=== PATIENT | male | born 1935 | race Caucasian/White ===

== ENCOUNTER 2020-02-06 12:40 | Inpatient (IN) | payer MEDICARE, MEDICAID, SELFPAY ==
[2020-02-06] VITALS (16 sets, daily range): BP systolic 143–172; BP diastolic 86–95; PULSE 61–105; RESP 18–31; TEMP 36.4–39; O2SAT 91–100; BMI 29.6
--- NOTE | ~2020-02-06 | XR_ITS ---
EXAMINATION: XR chest 1V portable EXAM DATE: 02/08/2020 12:29 INDICATION: Dyspnea, cough. TECHNIQUE: Portable AP frontal chest x-ray was obtained. Comparison is made to prior examination from 02/06/2020. FINDINGS: Left hemidiaphragm is more elevated than on prior study, and there is likely some adjacent atelectasis. The lungs are otherwise clear. There are no pleural effusions. Cardiac silhouette is p rominent but magnified on this AP technique. There is no pneumothorax suspected. The bones and sof t tissues are unremarkable. There is aortic arterial sclerosis. Spine stimulator leads. IMPRESSION: Low left lung volume with some adjacent left basilar atelectasis. No confluent consolidat ion. Reviewed, dictated and finalized at location B. IMPRESSION: Low left lung volume with some adjacent left basilar atelectasis. N o confluent consolidation.
--- NOTE | ~2020-02-06 | CT_ITS ---
EXAMINATION: CT brain wo con DATE: 02/06/2020 14:31 INDICATION: Altered mental status. TECHNIQUE: Computed tomography (CT) of the head was performed without intravenous contrast. The mA wa s adjusted according to patient size. Iterative reconstruction technique was employed. The dose-lengt h product was 681.00 mGy-cm. COMPARISON: Head CT 04/05/2018 FINDINGS: There is an old infarct in left temporal occipital region in the expected distribution of l eft posterior cerebral artery. There is an old infarct involving the right basal ganglia and right in ternal capsule. There is an old infarct in the right frontoparietal region. There is an old infarct i n posterior left frontal lobe. There is an old infarct in anterior right frontal lobe. There is no in tracranial hemorrhage, acute infarction, or abnormal intracranial mass lesion. There is ex vacuo dila tation of occipital horn of left lateral ventricle and body of right lateral ventricle. There is exte nsive dental disease. There is mild mucosal thickening in the paranasal sinuses. There are surgical c hanges of right frontal sinus. The orbits are normal. The mastoid air cells are normal. Partially vis ualized is left face soft tissue swelling. IMPRESSION: 1. Multiple old infarcts in the brain. 2. Extensive dental disease. Reviewed, dictated and finalized at location A.
--- NOTE | ~2020-02-06 | US_ITS ---
EXAMINATION: US venous doppler UE DATE: 02/13/2020 08:08 INDICATION: Right upper limb swelling. TECHNIQUE: Grayscale ultrasound images without and with compression and Doppler ultrasound images of the bilateral upper extremity veins were obtained. COMPARISON: None. FINDINGS: The visualized portions of the right internal jugular vein, subclavian vein, axillary vein, brachial veins, basilic vein, cephalic vein, radial vein, and ulnar vein are patent. The visualized portions of the left internal jugular vein, subclavian vein, axillary vein, brachial v eins, basilic vein, cephalic vein, radial vein, and ulnar vein are patent. A right-sided PICC line is noted. IMPRESSION: 1. No deep venous thrombosis. Reviewed, dictated and finalized at location A.
--- NOTE | ~2020-02-06 | CT_ITS ---
EXAMINATION: CT facial bones w con DATE: 02/06/2020 14:32 INDICATION: Left face soft tissue swelling. TECHNIQUE: Computed tomography (CT) of the facial bones and maxillofacial region was performed with 7 5 mL Omnipaque 350 intravenous contrast. Automated exposure control and iterative reconstruction tech [employer] were employed. The dose-length product was 546.97 mGy-cm. COMPARISON: None. FINDINGS: There is mild mucosal thickening in the paranasal sinuses. There are surgical changes of ri ght frontal sinus. The orbits are normal. There is plaque in the proximal internal carotid arteries w ith less than 50% stenosis relative to normal distal artery lumen diameters. Tooth 10 is broken. Ther e is a carious lesion of tooth 11. Teeth 12 and 13 are broken with periapical lucencies. Tooth 16 dem onstrates a carious lesion and periapical lucencies. Tooth 17 demonstrates a carious lesion. Tooth 20 is broken. Teeth 21, 22, and 23 demonstrate carious lesions. Tooth 30 demonstrates a carious lesion and periapical lucencies. There is extensive soft tissue swelling in left face involving the parotid gland, submandibular gland , surrounding fat, subcutaneous fat, and left sternocleidomastoid muscle. There is asymmetric enlarge ment of left palatine tonsil. There is no sialolith. There are hyperenhancing normal-sized lymph node s in the left mandibular and internal jugular chains, likely reactive. IMPRESSION: 1. Left face soft tissue swelling, consistent with cellulitis. No abscess. Possible sources of inflam mation are dental disease and parotiditis. 2. Extensive dental disease. Reviewed, dictated and finalized at location A. IMPRESSION: 1. Left face soft tissue swelling, consistent with cellulitis. No abscess. Poss ible sources of inflammation are dental disease and parotiditis. 2. Extensive dental disease.
--- NOTE | ~2020-02-06 | XR_ITS ---
EXAMINATION: XR barium swallow modified DATE: 02/10/2020 10:30 INDICATION: Dysphagia. TECHNIQUE: The patient was given barium-containing material of multiple consistencies to swallow by t tamiko speech pathologist while I performed fluoroscopy. Fluoroscopy exposure time was 3.1 minutes. The n umber of fluoroscopy images saved to the PACS was 1. Dose-area product was 9.888 Gy-cm^2. FINDINGS: There was vallecular residue, laryngeal penetration, and aspiration. IMPRESSION: 1. Laryngeal penetration and aspiration. 2. Please refer to the speech therapy report for recommendations. Reviewed, dictated and finalized at location A.
--- NOTE | ~2020-02-06 | XR_ITS ---
EXAMINATION: XR chest 1V portable EXAM DATE: 02/06/2020 13:30 INDICATION: Altered mental status. TECHNIQUE: Portable AP frontal chest x-ray was obtained. Comparison is made to prior examination from 08/24/2018. FINDINGS: The lungs are clear. There are no pleural effusions. Cardiac silhouette is prominent but magnified on this AP technique. There is no pneumothorax suspected. The bones and soft tissues are unremarkable. There is aortic arterial sclerosis. Spine stimulator leads. IMPRESSION: No acute cardiopulmonary findings. Reviewed, dictated and finalized at location B.
--- NOTE | ~2020-02-06 | XR_ITS ---
EXAMINATION: XR chest 1V INDICATION: Tachypnea TECHNIQUE: Portable AP chest at 1021 hours COMPARISON: 02/08/2020 FINDINGS: A right upper extremity PICC has been inserted which ends with its tip at the superior cavo atrial junction. There is minimal airspace opacity of the left lung base which is not significantly c hanged. No pleural effusion or pneumothorax is identified. The cardiomediastinal silhouette is normal . A small amount of enteric contrast is seen in the pharynx and proximal small bowel related to modif ied barium swallow. There is vertebroplasty change of the lumbar spine. Neurostimulator leads project over the midthoracic spine. IMPRESSION: 1. Stable left basilar airspace opacity, consistent with atelectasis versus pneumonia. Reviewed, dictated and finalized at location B. IMPRESSION: 1. Stable left basilar airspace opacity, consistent with atelectasis versus pne umonia.
--- NOTE | ~2020-02-06 | XR_ITS ---
EXAMINATION: XR barium swallow modified DATE: 02/13/2020 14:03 INDICATION: Dysphagia. TECHNIQUE: The patient was given barium-containing material of multiple consistencies to swallow by t tamiko speech pathologist while I performed fluoroscopy. Fluoroscopy exposure time was 2.6 minutes. The n umber of fluoroscopy images saved to the PACS was 1. Dose-area product was 5.098 Gy-cm^2. FINDINGS: Laryngeal penetration was noted. Microaspiration cannot be excluded. IMPRESSION: 1. Laryngeal penetration. Microaspiration cannot be excluded. 2. Please refer to the speech therapy report for recommendations. Reviewed, dictated and finalized at location A.
--- NOTE | ~2020-02-06 | XR_ITS ---
XR chest 1V portable 02/12/2020 18:20 Indication: Line placement. Procedure: AP portable chest Comparison: Comparison to multiple prior studies sequentially, with oldest reviewed study dated 08/03. Findings: Right subclavian PICC line tip in the SVC. Shallow inspiration. Left basilar airspace disea se, compatible with pneumonia. No pleural effusion, edema or pneumothorax. No acute osseous abnormali ty. Impression: 1: Left basilar airspace disease, compatible with pneumonia. Reviewed, dictated and finalized at location A. Impression: 1: Left basilar airspace disease, compatible with pneumonia.
--- NOTE | 2020-02-06 12:53 | ED.GENADULT ---
HPI - General Adult General Chief complaint: Unspecified Stated complaint: infection to mouth Time Seen by Provider: 02/06/20 12:52 Source: EMS and RN notes reviewed Mode of arrival: EMS Limitations: clinical condition History of Present Illness HPI narrative: Pt is a 84 y/o male who presents to the ED via EMS with c/o lt sided facial swelling starting this morning. According to the nurse, staff at [facility] noticed the lt side of his face was swollen earlier this morning. She notes that they then took his temperature, and stated that it was 101.7 degrees. Pt is currently not answering questions. EMS states that the pt is normally A & Ox4. HPI limited due to pt's clinical condition. MD complaint: Facial Swelling Location: face (lt side of face) Associated symptoms: fever/chills (fever (per [facility] staff)) Related Data Allergies Allergy/AdvReac Type Severity Reaction Status Date / Time lisinopril Allergy Severe Swelling Verified 08/24/18 20:17 ceftriaxone Allergy Unknown Verified 08/24/18 20:17 Review of Systems Review of Systems: Narrative: ROS limited due to the pt's clinical condition. Constitutional: Constitutional: Reports fever(s) (per [facility] staff) Integumentary/Breasts: Skin/Breast: Reports skin swelling (lt sided facial swelling) [facility] Past Medical History Medical History Anemia Anxiety Arthritis Back pain BPH (benign prostatic hyperplasia) CHF (congestive heart failure) COPD (chronic obstructive pulmonary disease) CVA (cerebral vascular accident) Dementia Depression Diabetes Diabetic neuropathy DVT (deep venous thrombosis) HLD (hyperlipidemia) HTN (hypertension) MRSA (methicillin resistant Staphylococcus aureus) Myocardial infarction NAIN (obstructive sleep apnea) Pneumonia Renal disease Surgical History Surgical History History of total bilateral knee replacement Hx of cardiac catheterization Hx of heart artery stent x2 Hx of sinus surgery Hx of spinal surgery Social History Social History Smoking status: Former smoker Exam Const: General: ill appearing acutely and lethargic Orientation/consciousness: lethargic Limitations: altered mental status HENMT: Face and sinus: other (left facial swelling along parotid gland) Mouth: Yes dry mucous membranes Teeth and gingiva: abnormal tooth and associated gingiva and poor dentition Throat: other (dried green material to palate) Chest: Chest palpation & inspection: normal inspection of the chest Resp: Effort & Inspection: tachypneic Auscultation: rhonchi throughout and no wheezes Cardio: Rate: regular rate Rhythm: regular rhythm Heart sounds: no murmurs Course Reevaluation(s) Reevaluation #1: I spoke with patient's daughter in depth about seriousness of patient's condition. I spoke with her for about 15 minutes. She states patient is DNR and DNI . I discussed that patient appears to be not as responsive due to sepsis. He will say no to her when asked if he wants to move. I discussed my concern about patient unable cough well or protect airway. I discussed that he has severe infection that we will try antibiotics but that antibiotics may not be enough. I have explained at this time we do not have ENT to assess if patient worsens and that in order to have ENT patient would need to be transferred. Patient's daughter states she has spoken with her sister and they would like patient be admitted to [facility] for IV antibiotics and if that does not work they understand other intervention may not be available. She states she understands and her father would just want to be let go. He would not want procedure. Date: 02/06/20 Time: 16:04 Consultations Consultation #1: Discussed case with PA to hospitalist, Neena Carrillo. She advised to talk to the pt's daughter. If she
[2020-02-06 13:02] LABS: Glucose Point of Care 160 (65-105)
--- NOTE | 2020-02-06 13:15 | PC.NURSE ---
Unable to get straight cath. Unable to retract pts penis.
--- NOTE | 2020-02-06 13:15 | ECG_ITS ---
Measurements Intervals [place] Rate: 103 P: -75 [place]: 146 QRS: -51 QRSD: 117 T: 35 QT: 353 QTc: 463 Interpretive Statements SINUS TACHYCARDIA FREQUENT ATRIAL PREMATURE COMPLEXES AND VENTRICULAR PREMATURE COMPLEX LEFT AXIS DEVIATION INTRAVENTRICULAR CONDUCTION DELAY BORDERLINE R WAVE PROGRESSION, ANTERIOR LEADS BORDERLINE ST ABNORMALITY- LATERAL LEADS BASELINE ARTIFACT- II, III ABNORMAL ECG Electronically Signed On 02-06-2020 13:47:45 CDT by Mynor Rey D.O.
[2020-02-06 13:23] LABS: Basophils Absolute Auto 0.1 K/mm3 (0.0-0.1); Basophils Percent Auto 0.4 % (0.2-1.2); Hematocrit 45.9 % (42.0-52.0); Hemoglobin 14.8 g/dL (14.0-18.0); Immature Granulocyte Percent A 1.3 % (0-0.5); Lymphocytes Absolute Auto 1.46 K/mm3 (0.9-3.2); Lymphocytes Percent Auto 4.7 % (18.3-44.2); Mean Corpuscular HGB Conc 32.2 g/dl (32-36); Mean Corpuscular Hemoglobin 27.1 pg (26-34); Mean Corpuscular Volume 83.9 fl (80-100); Monocytes Absolute Auto 2.5 K/mm3 (0.1-0.6); Monocytes Percent Auto 7.9 % (2.6-8.5); Neutrophils Absolute Auto 26.8 K/mm3 (1.3-6.7); Neutrophils Percent Auto 85.7 % (45.5-73.1); Platelet Count Result 251 k/mm3 (150-375); Red Blood Count 5.47 M/mm3 (4.6-6.20); White Blood Count 31.2 K/mm3 (4.5-10.0)
[2020-02-06] MEDS: methylPREDNISolone SOD SUCC 125 MG VIAL IV PUSH (13:29)
--- NOTE | 2020-02-06 13:30 | PC.NURSE ---
Oracio urine bag put on patient to collect urine
[2020-02-06 13:33] LABS: INR 1.2; Prothrombin Time 14.9 Seconds (11.1-14.7)
[2020-02-06 13:34] LABS: Partial Thromboplastin Time 31.8 SECONDS (22.3-36.8)
[2020-02-06 13:35] LABS: Lactic Acid Reflex 1.3 mmol/L (0.7-2.1)
[2020-02-06 13:47] LABS: Alanine Aminotransferase 13 U/L (4-50); Albumin Level 3.9 g/dL (3.5-5.1); Alkaline Phosphatase 95 U/L (38-126); Aspartate Amino Transferase 21 U/L (17-59); Bilirubin,Total 0.8 mg/dL (0.2-1.3); Blood Urea Nitrogen 20 mg/dL (9-20); Calcium 9.3 mg/dL (8.4-10.2); Carbon Dioxide 21 mmol/L (22-30); Chloride 108 mmol/L (98-107); Estimated CRCL calculation 61 ml/min; Estimated Glomerular Filt Rate > 60; Glucose 166 mg/dL (75-110); Potassium 4.1 mmol/L (3.4-5.0); Sodium 139 mmol/L (137-145)
[2020-02-06 14:15] LABS: CRP 31.5 mg/dL (<1.0)
[2020-02-06] MEDS: CLINDAMYCIN 900 MG/NS 50 ML 900 MG/50 ML PIGGYBACK 50 MG IVPB (14:30)
[2020-02-06 14:31] LABS: Alveolar/Arterial O2 Gradient 46.9 mmHg; Base Excess ABG -3.6 mEq/l (+/-2.0); Carboxyhemoglobin 1.1 % THb (0-2.0); Device ROOM AIR; Fractional Inspired Oxygen 21 %; HCO3 ABG 21.1 mEq/l (22.0-26.0); Methemoglobin ABG 0.3 %THb (0-1.5); Modified Allen's Test Pass; Oxygen Content ABG 17.7 %vol (16.0-22.0); Oxygen Saturation ABG 89.7 % (95.0-100.0); Oxyhemoglobin 87.7 % THb (90.0-100.0); PCO2 ABG 37.3 mmHg (35.0-45.0); PO2 ABG 58.2 mmHg (80.0-100.0); PO2 FiO2 Ratio Arterial Blood 2.77 %; Reduced Hemoglobin 10.9 %THb (0-5.0); Site Drawn RIGHT RADIAL; Total Hemoglobin 14.4 g/dL (12.0-18.0); pH ABG 7.371 (7.350-7.450)
--- NOTE | 2020-02-06 14:45 | PC.NURSE ---
This RN provided oral care to patient
[2020-02-06] MEDS: LACTATED RINGERS 1,000 ML 999 ML IV CONT (15:08)
--- NOTE | 2020-02-06 15:08 | PC.NURSE ---
This RN called [facility] to speak with the patients nurse. I spoke with Zoe and asked her what the patient looked like when she started this morning. She states He was normal this morning, he was a little tired but all his vitals were normal I ask what his tempature was and what his faced looked like she states it was 98 and his face was normal I said there is no chance. She said excuse me!, would you like to talk to my director? I said sure. She states the her DON is in a meeting. I asked her when the last time the patient had oral care? she said well he had breakfast and then we were going to clean him up but thats when i noticed his face I said did you give him oral care yesterday, the day before? Because I just cleaned about 5 days of plague off his teeth and his tongue looks like a raisen. She said well im not a dentist and its not my job to know about that I said You have to be a dentist to provide oral care? She said she would have her DON call me. I said i look forward to it.
--- NOTE | 2020-02-06 15:17 | PC.NURSE ---
urine bag checked. still no urine
--- NOTE | 2020-02-06 15:40 | PC.NURSE ---
Dr. Broderick speaking with pts daughter on her wishes. She states that she wanted to make some phone calls and would call back with a decision.
--- NOTE | 2020-02-06 16:22 | PC.NURSE ---
This RN provided oral care for pt
[2020-02-06] MEDS: metroNIDAZOLE 500 MG/ISO 100ML 500 MG/100 ML BAG 100 MG IVPB (16:30)
--- NOTE | 2020-02-06 17:31 | PC.NURSE ---
This patient, Joshua Castellano, was admitted to IMU Room 207-01. Patient/family oriented to hospital policies and general routines including ID bracelet, bed and alarms, visiting hours, pain management, procedures, bathroom and other care routines, personal items, smoking policy, room service/diet, and visiting hours. Valuables list has been completed. Information on how to activate the Rapid Response Team has been discussed. Patient/Family are encouraged to report perceived risks to care and to ask questions if they do not understand what they are told or what they should do.
[2020-02-06 17:41] LABS: Add Urine Microscopic? YES; Appearance Urine Clear (Clear); Bacteria Urine 2+ /hpf; Bilirubin Urine Negative (Negative); Blood Urine Negative (Negative); Color Urine Yellow (Yellow); Glucose Urine UA Negative (Negative); Ketones Urine Trace mg/dL (Negative); Leukocyte Esterase Ur 1+ LEU/UL (Negative); Mucus Urine Rare /lpf; Nitrate Urine Negative (Negative); Protein Urine 3+ mg/dL (Negative); Squamous Epithelial Cell Urine Many /hpf (Few); Urobilinogen Urine Negative mg/dL (<2.0); WBC Urine 31-50 /hpf
[2020-02-06 17:47] LABS: Specific Grav Ur > 1.060 (1.001-1.035)
[2020-02-06] MEDS: SODIUM CHLORIDE 0.9% IV 1,000 ML 125 ML IV CONT (18:08)
--- NOTE | 2020-02-06 20:00 | PM.IMHP ---
H&P: HPI History of Present Illness Chief complaint: Fever, left face swelling. Narrative: Joshua Castellano is an 84-year-old male with multiple medical problems to include dementia, history of stroke, chronic kidney disease, sleep apnea, diabetes, congestive heart failure, aortic stenosis, and hypertension who presented to the emergency department earlier this afternoon via EMS from [facility] for evaluation of fever and swelling to the left side of the face. He is minimally responsive at the time my evaluation and is unable to provide any history. As such, the following is obtained via a review of his electronic medical records as well as discussion with staff. Staff at the care facility noticed that the left side of his face was very swollen and he was hot to the touch, with a temperature of 101.7?. On EMS arrival, he reportedly had ?blood and pus? in his mouth. Facial CT done in the emergency department demonstrated extensive left face soft tissue swelling consistent with cellulitis, with no definitive abscess as well as significant dental disease. Due to lack of ENT specialty at this facility, I requested that the patient be transferred. The patient's daughters were contacted and they were okay with admitting him to [facility] as they would not want surgical intervention or intubation should he not respond to IV antibiotics. At the time my evaluation, he is minimally responsive, does not track with his eyes, and does not answer questions or follow commands. Review of Systems Review of Systems: Narrative: Unobtainable given clinical condition as detailed above. [facility] Past Medical History Medical History (Updated 02/06/20 @ 21:13 by Neena Carrillo PA-C) Anemia Anxiety Aortic stenosis Moderate aortic stenosis on echocardiogram in August 2016 with a valve area of 1.4 centimeter squared. Arthritis Back pain BPH (benign prostatic hyperplasia) Chronic kidney disease, stage 3 Congestive heart failure Diastolic dysfunction noted on echocardiogram in August 2016 with an ejection fraction estimated at 60%. COPD (chronic obstructive pulmonary disease) Coronary artery disease With history of GA and stents. CVA (cerebral vascular accident) X2. Dementia Depression Diabetic neuropathy DVT (deep venous thrombosis) Left lower extremity. Hyperlipidemia Hypertension Insulin dependent type 2 diabetes mellitus MRSA infection After sinus surgery. Myocardial infarction Obstructive sleep apnea Osteoarthritis Shingles Surgical History Surgical History (Updated 02/06/20 @ 20:54 by Neena Carrillo PA-C) History of back surgery History of cardiac catheterization With stent x2. History of sinus surgery History of total bilateral knee replacement Family History Family History (Updated 02/06/20 @ 20:55 by Neena Carrillo PA-C) Father Cancer Social History Social History (Updated 02/06/20 @ 20:56 by Neena Carrillo PA-C) Social History: The patient lives at [facility]. His daughter, Claudia Canada, is his healthcare power of emergency service restorer. He is a DNR/DNI. He is a former smoker and quit > 40 years ago. No alcohol or drug abuse. Spiritual care concerns: No Agree to blood products: Yes Meds Home Medications and Allergies Home Medications Medication Instructions Recorded Confirmed Type acetaminophen 500 mg PO Q4H PRN 02/06/20 02/06/20 History amlodipine 10 mg PO DAILY 02/06/20 02/06/20 History ascorbic acid (vitamin C) 500 mg PO BID 02/06/20 02/06/20 History aspirin 81 mg PO DAILY 02/06/20 02/06/20 History bisacodyl 5 mg PO DAILY PRN 02/06/20 02/06/20 History budesonide 2 ml INHALATION BID 02/06/20 02/06/20 History sfbrrmrwgg-[id number]-egvm 1 cap PO Q4H PRN 02/06/20 02/06/20 History [Esgic] calcium carbonate [Calcium 600] 600 mg PO BID 02/06/20 02/06/20 History calcium carbonate-mag hydroxid 1 tablet PO TID PRN 02/06/20 02/06/20 History [Antacid (calcium carb-mag hyd
[2020-02-06] MEDS: CLINDAMYCIN 600 MG/NS 50 ML 600 MG/50 ML PIGGYBACK 100 MG IVPB (23:22)
[2020-02-07] VITALS (22 sets, daily range): BP systolic 150–180; BP diastolic 76–93; PULSE 78–98; RESP 18–24; TEMP 36.6–36.8; O2SAT 96–100
[2020-02-07 04:43] LABS: Basophils Percent Auto 0.2 % (0.2-1.2); Hematocrit 41.9 % (42.0-52.0); Hemoglobin 13.1 g/dL (14.0-18.0); Immature Granulocyte Absolute 0.17 K/mm3 (0.00-0.031); Immature Granulocyte Percent A 0.7 % (0-0.5); Lymphocytes Absolute Auto 0.78 K/mm3 (0.9-3.2); Lymphocytes Percent Auto 3.2 % (18.3-44.2); Mean Corpuscular HGB Conc 31.3 g/dl (32-36); Mean Corpuscular Hemoglobin 26.4 pg (26-34); Mean Corpuscular Volume 84.5 fl (80-100); Monocytes Absolute Auto 1.4 K/mm3 (0.1-0.6); Monocytes Percent Auto 5.6 % (2.6-8.5); Neutrophils Absolute Auto 22.2 K/mm3 (1.3-6.7); Neutrophils Percent Auto 90.3 % (45.5-73.1); Platelet Count Result 200 k/mm3 (150-375); Red Blood Count 4.96 M/mm3 (4.6-6.20); Red Cell Distribution Width 14.1 % (11.5-14.5); White Blood Count 24.6 K/mm3 (4.5-10.0)
[2020-02-07 05:01] LABS: Alanine Aminotransferase 11 U/L (4-50); Albumin Level 3.5 g/dL (3.5-5.1); Alkaline Phosphatase 77 U/L (38-126); Aspartate Amino Transferase 16 U/L (17-59); Bilirubin,Total 0.4 mg/dL (0.2-1.3); Blood Urea Nitrogen 27 mg/dL (9-20); Calcium 8.9 mg/dL (8.4-10.2); Carbon Dioxide 23 mmol/L (22-30); Chloride 108 mmol/L (98-107); Estimated CRCL calculation 54 ml/min; Estimated Glomerular Filt Rate 58; Glucose 218 mg/dL (75-110); Potassium 3.9 mmol/L (3.4-5.0); Sodium 142 mmol/L (137-145)
[2020-02-07 05:02] LABS: Hemoglobin A1C 6.2 % (<5.7)
[2020-02-07] MEDS: CLINDAMYCIN 600 MG/NS 50 ML 600 MG/50 ML PIGGYBACK 100 MG IVPB ×3 (05:14→21:37)
[2020-02-07] MEDS: SODIUM CHLORIDE 0.9% IV 1,000 ML 125 ML IV CONT (05:18)
[2020-02-07] MEDS: ENOXAPARIN 40 MG/0.4 ML SYRINGE SUB-Q (08:36)
[2020-02-07] MEDS: PANTOPRAZOLE SODIUM IV 40 MG VIAL IV PUSH (08:36)
--- NOTE | 2020-02-07 09:03 | PM.IMPN ---
Progress Note: A&P Assessment and Plan (1) Severe sepsis: Code(s): A41.9 - Sepsis, unspecified organism; R65.20 - Severe sepsis without septic shock Status: Acute Assessment and Plan: At presentation, the pt had fever, tachycardia, and leukocytosis with parotitis suspected as the source. His lactic acid is WNL. Blood cultures reveal no growth to date. Vitals are stable. Continue to monitor blood cultures Continue to monitor vitals Continue gentle IV fluids (2) Acute suppurative parotitis: Code(s): K11.21 - Acute sialoadenitis Status: Acute Assessment and Plan: The pt has a ceftriaxone allergy and he and his daughter are unsure of the reaction. Will avoid PCN and cephalosporins. Telemetry was reviewed from 02/06 with frequent PVCs and one episode of 4 beats of non-sustained vtach. Discussed with Dr. Lal and will discontinue levaquin. Will continue clindamycin and vancomycin. Will consult Dr. Villarreal for further recommendations. I discussed the case with Dr. Heart. He stated that it is reassuring that purulent fluid is draining and he would not be a surgical candidate at this time. He advised to continue IV abx, IV fluids, sour candy/sialagogues and CLD once appropriate, warm compresses, and gentle massage. Will order speech therapy evaluation and advance diet after evaluation if pt tolerates swallow eval Will consider the addition of steroids as needed. The pt seems to be improving at this time. (3) Facial cellulitis: Code(s): L03.211 - Cellulitis of face Status: Acute Assessment and Plan: The pt has extensive left face soft tissue swelling consistent with cellulitis. CT face revealed extensive soft tissue swelling of the left face involving the parotid gland, submandibular gland, surround fat, and left sternocleidomastoid muscle as well as asymmetric enlargement of the left palatine tonsil. There was no evidence of abscess on the CT face. Continue empiric antibiotics of vancomycin and clindamycin. Dr. Villarreal has been consulted for further recommendations. The pt currently has purulent drainage which is reassuring. He seems to be improving on IV abx. I discussed the case with Dr. Heart as well as Richa. Dr. Heart said that surgical intervention is not recommended at this time. I discussed the case with his family as well. They want to avoid surgical intervention. (4) Dehydration: Code(s): E86.0 - Dehydration Status: Acute Assessment and Plan: Continue cautious IV rehydration (5) Hypertension: Code(s): I10 - Essential (primary) hypertension Status: Acute Assessment and Plan: Blood pressures were reviewed and are elevated. The patient's home antihypertensives are held at this time. Will continue to monitor. As he is NPO given current clinical condition, will need to monitor blood pressures closely. Will resume home PO antihypertensives once pt is no longer NPO (6) Insulin dependent type 2 diabetes mellitus: Code(s): E11.9 - Type 2 diabetes mellitus without complications; Z79.4 - intermediate designer (current) use of insulin Status: Acute Assessment and Plan: Blood sugars reviewed and elevated. Pt did not have his basal insulin dose last night. Patient is NPO, will decrease basal insulin to 10 units for now and titrate as needed Continue SSI Continue Q6HR Continue hypoglycemic protocol (7) Obstructive sleep apnea: Code(s): G47.33 - Obstructive sleep apnea (adult) (pediatric) Status: Chronic Assessment and Plan: Unable to use CPAP due to extensive swelling on the left side of the face (8) Non-sustained ventricular tachycardia: Code(s): I47.2 - Ventricular tachycardia Status: Acute Assessment and Plan: The pt had a 4 beat run of non-sustained vtach on telemetry this AM. QTc was 463 so levaquin was discontinued. He also has frequent PVC
[2020-02-07 11:48] LABS: Glucose Point of Care 218 (65-105)
[2020-02-07] MEDS: INSULIN ASPART (*BKC) 100 UNITS/ML SUB-Q (12:28)
[2020-02-07] MEDS: ALBUTEROL SULFATE NEB 2.5 MG/0.5 ML INH INHALATION ×3 (13:04→20:50)
[2020-02-07] MEDS: IPRATROPIUM BR 0.02% INH SOLN 0.5 MG/2.5 ML VIAL INHALATION ×3 (13:04→20:50)
[2020-02-07] MEDS: BUDESONIDE RESPULE NEB 0.5 MG/2 ML AMP INHALATION ×2 (13:04→20:51)
[2020-02-07] MEDS: SODIUM CHLORIDE 0.9% IV 1,000 ML 100 ML IV CONT (16:29)
[2020-02-07 17:09] LABS: Magnesium 1.8 mg/dL (1.6-2.3)
[2020-02-07 18:01] LABS: Glucose Point of Care 147 (65-105)
--- NOTE | 2020-02-07 18:18 | ECG_ITS ---
Measurements Intervals [place] Rate: 132 P: -59 [place]: 142 QRS: -49 QRSD: 122 T: 64 QT: 295 QTc: 438 Interpretive Statements ATRIAL TACHYCARDIA VENTRICULAR COUPLET AND FREQUENT VENTRICULAR PREMATURE COMPLEXES LEFT AXIS DEVIATION INTRAVENTRICULAR CONDUCTION DELAY BORDERLINE R WAVE PROGRESSION, ANTERIOR LEADS ABNORMAL ECG Electronically Signed On 02-08-2020 10:33:31 CDT by Mynor Rey D.O.
[2020-02-07] MEDS: INSULIN DETEMIR 100 UNITS/ML 10 UNITS SUB-Q (20:50)
[2020-02-07 23:42] LABS: Glucose Point of Care 135 (65-105)
[2020-02-08] VITALS (29 sets, daily range): BP systolic 140–185; BP diastolic 62–97; PULSE 80–108; RESP 20–26; TEMP 36.6–36.8; O2SAT 96–98
[2020-02-08] MEDS: METOPROLOL TARTRATE INJ 5 MG/5 ML VIAL IV PUSH ×5 (00:28→23:35)
[2020-02-08] MEDS: ALBUTEROL SULFATE NEB 2.5 MG/0.5 ML INH INHALATION ×4 (02:50→21:04)
[2020-02-08] MEDS: IPRATROPIUM BR 0.02% INH SOLN 0.5 MG/2.5 ML VIAL INHALATION ×4 (02:50→21:04)
[2020-02-08] MEDS: SODIUM CHLORIDE 0.9% IV 1,000 ML 100 ML IV CONT (04:43)
[2020-02-08] MEDS: CLINDAMYCIN 600 MG/NS 50 ML 600 MG/50 ML PIGGYBACK 100 MG IVPB (06:33)
[2020-02-08] MEDS: ENOXAPARIN 40 MG/0.4 ML SYRINGE SUB-Q (08:16)
[2020-02-08] MEDS: PANTOPRAZOLE SODIUM IV 40 MG VIAL IV PUSH (08:16)
[2020-02-08 08:33] LABS: Blood Urea Nitrogen 23 mg/dL (9-20); Calcium 8.5 mg/dL (8.4-10.2); Carbon Dioxide 19 mmol/L (22-30); Chloride 111 mmol/L (98-107); Estimated CRCL calculation 70 ml/min; Estimated Glomerular Filt Rate > 60; Glucose 174 mg/dL (75-110); Magnesium 1.8 mg/dL (1.6-2.3); Potassium 3.4 mmol/L (3.4-5.0); Sodium 138 mmol/L (137-145)
[2020-02-08 08:34] LABS: Basophils Absolute Auto 0.1 K/mm3 (0.0-0.1); Basophils Percent Auto 0.3 % (0.2-1.2); Hemoglobin 12.6 g/dL (14.0-18.0); Immature Granulocyte Absolute 0.18 K/mm3 (0.00-0.031); Immature Granulocyte Percent A 0.9 % (0-0.5); Mean Corpuscular HGB Conc 31.5 g/dl (32-36); Mean Corpuscular Volume 85.7 fl (80-100); Mean Platelet Volume 9.7 fl (7.4-10.4); Monocytes Absolute Auto 1.6 K/mm3 (0.1-0.6); Monocytes Percent Auto 7.8 % (2.6-8.5); Neutrophils Absolute Auto 16.9 K/mm3 (1.3-6.7); Nucleated Red Blood Cells Perc 0.1 % (0.0-0.2); Platelet Count Result 247 k/mm3 (150-375); Red Blood Count 4.67 M/mm3 (4.6-6.20); Red Cell Distribution Width 14.4 % (11.5-14.5); White Blood Count 19.9 K/mm3 (4.5-10.0)
[2020-02-08] MEDS: BUDESONIDE RESPULE NEB 0.5 MG/2 ML AMP INHALATION ×2 (08:35→21:04)
--- NOTE | 2020-02-08 10:21 | PCSTNOTE ---
Please refer to the Bedside Swallow Evaluation in the EMR. Please note, silent aspiration cannot be ruled out at bedside.
[2020-02-08 11:50] LABS: Glucose Point of Care 144 (65-105)
--- NOTE | 2020-02-08 11:50 | PM.IMPN ---
Progress Note: A&P Assessment and Plan (1) Acute suppurative parotitis: Code(s): K11.21 - Acute sialoadenitis Status: Acute Assessment and Plan: The pt has a ceftriaxone allergy and he and his daughter are unsure of the reaction. Will avoid PCN and cephalosporins. Telemetry was reviewed from 02/07 with frequent PVCs and several episode of 3-4 beats of non-sustained vtach. Levaquin was discontinued due to QTc 463 02/05 and non-sustained vtach. Speech therapy evaluated the pt today recommends NPO for now and cannot r/o aspiration risk. They recommend re-assessment in 24-48hr pending improvement in the patient's cognition. CXR was repeated today without evidence of consolidation. The patient's swelling is improving although his parotid gland is still firm to palpation. WBC is trending down. Dr. Villarreal is on board and has recommended vancomycin I discussed the case with Dr. Heart. He stated that it is reassuring that purulent fluid is draining and he would not be a surgical candidate at this time. He advised to continue IV abx, IV fluids, sour candy/sialagogues and CLD once appropriate, warm compresses, and gentle massage. Will consider the addition of steroids as needed. The pt seems to be improving at this time. (2) Severe sepsis: Code(s): A41.9 - Sepsis, unspecified organism; R65.20 - Severe sepsis without septic shock Status: Acute Assessment and Plan: At presentation, the pt had fever, tachycardia, and leukocytosis with parotitis suspected as the source. His lactic acid is WNL. Blood cultures reveal no growth to date. WBC is trending down. Continue to monitor blood cultures Continue to monitor vitals Will decrease IV fluid rate as pt has diastolic dysfunction and BP is elevated. Urine output is adequate. (3) Facial cellulitis: Code(s): L03.211 - Cellulitis of face Status: Acute Assessment and Plan: The pt has extensive left face soft tissue swelling consistent with cellulitis. CT face revealed extensive soft tissue swelling of the left face involving the parotid gland, submandibular gland, surround fat, and left sternocleidomastoid muscle as well as asymmetric enlargement of the left palatine tonsil. There was no evidence of abscess on the CT face. The pt continues to have purulent secretions today. Dr. Villarreal has recommended vancomycin IV I discussed the case with Dr. Heart as well as Richa. Dr. Heart said that surgical intervention is not recommended at this time. I discussed the case with his family as well. They want to avoid surgical intervention. Will trend WBC (4) Dehydration: Code(s): E86.0 - Dehydration Status: Acute Assessment and Plan: Continue cautious IV rehydration, the patient's BP is stable. Will decrease fluid rate. Pt is still NPO. (5) Hypertension: Code(s): I10 - Essential (primary) hypertension Status: Acute Assessment and Plan: Blood pressures were reviewed and are elevated. The patient's home antihypertensives are held at this time. I suspect this will improve once his acute illness improves. 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 Patient is NPO, continue basal insulin at a decreased rate of 10 units Continue SSI Continue Q6HR Continue hypoglycemic protocol (7) Obstructive sleep apnea: Code(s): G47.33 - Obstructive sleep apnea (adult) (pediatric) Status: Chronic Assessment and Plan: Unable to use CPAP at this time due to extensive swelling on the left side of the face (8) Non-sustained ventricular tachycardia: Code(s): I47.2 - Ventricula
--- NOTE | 2020-02-08 12:02 | WPDINFPN2 ---
Progress Note: A&P Assessment and Plan (1) Acute suppurative parotitis: Code(s): K11.21 - Acute sialoadenitis Status: Acute Assessment and Plan: parotiditis REC vanc #3, 10-14 days anticipated Subjective Date/time seen: 02/08/20 12:02 Objective Data Vital Signs Vital Signs: Vital Signs - 24 hr 02/07/20 12:05 02/07/20 14:00 02/07/20 16:00 Temperature 36.8 C Pulse Rate 88 90 86 Respiratory Rate 22 H Blood Pressure 154/93 H Pulse Oximetry 99 02/07/20 16:42 02/07/20 18:00 02/07/20 19:32 Temperature 36.7 C 36.8 C Pulse Rate 86 88 92 Respiratory Rate 22 H 20 Blood Pressure 150/77 H 180/87 H Pulse Oximetry 100 98 02/07/20 20:00 02/07/20 20:51 02/07/20 20:55 Temperature Pulse Rate 98 92 89 Respiratory Rate 20 20 18 Blood Pressure Pulse Oximetry 96 96 02/07/20 21:07 02/07/20 22:00 02/07/20 23:56 Temperature 36.6 C Pulse Rate 89 94 90 Respiratory Rate 20 20 Blood Pressure 174/77 H Pulse Oximetry 96 02/08/20 00:00 02/08/20 00:28 02/08/20 02:00 Temperature Pulse Rate 90 105 H 96 Respiratory Rate 20 Blood Pressure Pulse Oximetry 96 02/08/20 02:51 02/08/20 02:59 02/08/20 04:00 Temperature 36.8 C Pulse Rate 88 86 102 H Respiratory Rate 20 20 20 Blood Pressure 151/91 H Pulse Oximetry 97 02/08/20 05:40 02/08/20 06:34 02/08/20 08:12 Temperature 36.7 C Pulse Rate 96 108 H 88 Respiratory Rate 22 H Blood Pressure 177/73 H Pulse Oximetry 97 02/08/20 08:30 02/08/20 08:37 02/08/20 08:39 Temperature Pulse Rate 92 80 Respiratory Rate 20 Blood Pressure Pulse Oximetry 97 02/08/20 08:45 02/08/20 10:00 Temperature Pulse Rate 82 96 Respiratory Rate 20 Blood Pressure Pulse Oximetry Intake/Output Intake/Output: Intake & Output 02/05/20 02/06/20 02/07/2020 23:59 23:59 23:59 23:59 Intake Total 2049 1950 105 Balance 2049 1950 1050 Meds/Results Medications: Active Medications Generic Name Dose Route Start Last Admin Trade Name Freq PRN Reason Stop Dose Admin Albuterol 2.5 mg 02/07/20 08:00 02/08/20 08:34 Albuterol Sulf Neb 2.5mg/0.5ml INHALATION 2.5 mg Q6HRT JOSIAH Administration Bisacodyl 5 mg 02/06/20 21:13 Dulcolax Tab PO DAILY PRN Constipation Budesonide 0.5 mg 02/07/20 08:00 02/08/20 08:35 Pulmicort Respule Neb INHALATION 0.5 mg Q12HRT JOSIAH Administration Dextrose 12.5 gm 02/06/20 21:12 Dextrose 50% Syringe IV PUSH PRN PRN Hypoglycemia Protocol Enoxaparin Sodium 40 mg 02/07/20 09:00 02/08/20 08:16 Lovenox SUB-Q 40 mg DAILY JOSIAH Administration Glucagon 1 mg 02/06/20 21:12 Glucagon For Inj IM PRN PRN Hypoglycemia Protocol Glucose 15 gm 02/06/20 21:12 Glutose 15 PO PRN PRN Hypoglycemia Protocol Acetaminophen 1,000 mg in 100 mls @ 400 mls/hr 02/06/20 16:16 02/07/20 22:36 Ofirmev 1,000 Mg Ivpb IVPB Infused Q6H PRN Infusion Mild Pain (1-3) or Fever Vancomycin HCl 1,500 mg in 500 mls @ 333.333 mls/hr 02/06/20 17:00 02/08/20 04:43 Vancomycin 1,500 Mg/D5w 500 Ml IVPB 333.3 mls/hr Q18H JOSIAH Administration Dextrose 1,000 mls @ 100 mls/hr 02/06/20 21:12 Dextrose 5% 1,000 Ml IVPB PRN PRN Hypoglycemia Protocol Sodium Chloride 1,000 mls @ 60 mls/hr 02/07/20 15:30 02/08/20 04:43 Normal Saline Iv IV CONT 100 mls/hr .[id number] JOSIAH Administration Insulin Aspart 3 - 6 units 02/07/20 12:00 02/08/20 06:21 Novolog SUB-Q Not Given Q6HR JOSIAH Protocol Insulin Detemir 10 units 02/07/20 21:00 02/07/20 20:50 Levemir SUB-Q 10 units HS [facility] Administration Ipratropium [place] 0.5 mg 02/07/20 08:00 02/08/20 08:34 Atrovent Neb INHALATION 0.5 mg Q6HRT JOSIAH Administration Metoprolol Tartrate 5 mg 02/08/20 09:07 Lopressor Inj IV PUSH Q6HR JOSIAH Ondansetron HCl 4 mg 02/06/20 16:1
--- NOTE | 2020-02-08 14:40 | CONS_ITS ---
DATE OF CONSULTATION: 02/08/2020 REASON FOR CONSULTATION: Parotiditis. HISTORY OF PRESENT ILLNESS: The patient is an 84-year-old male with dementia and cannot provide any coherent history. [facility] a [facility] a [facility]. His chart indicates a past history of MRSA infection, details not available. He was brought from his [facility] on February 05 with fever at his [facility] at 38.7, along with several hours of facial swelling. The patient on arrival here was 39. He has been given levofloxacin, vancomycin, and clindamycin, and our consultation requested yesterday. He has not required any surgical intervention. His levofloxacin was stopped yesterday due to NSVT and prolonged QT. ALLERGIES: CEFTRIAXONE, REACTION NOT AVAILABLE. ALSO LISINOPRIL CAUSED SWELLING, NOT OTHERWISE SPECIFIED. HABITS: No tobacco. No alcohol. PRESENT MEDICATIONS: Above antibiotics. No immunosuppressants. PAST MEDICAL HISTORY: Includes spinal surgery, sinus surgery, coronary artery disease with stents, bilateral total knee arthroplasties, renal insufficiency, past pneumonia, NAIN, hypertension, hyperlipidemia, DVT, diabetes with neuropathy, dementia, depression, stroke, COPD, heart failure, BPH, anxiety, and chronic anemia. FAMILY HISTORY: Not pertinent to his present illness. SOCIAL HISTORY: He has a daughter who is his healthcare power of contract attorney. He is DNR. No family at the bedside. REVIEW OF SYSTEMS: He has noncoherent answers to questions; however, he does volunteer facial pain. A 14-point review otherwise attempted, not obtainable due to dementia. PHYSICAL EXAMINATION: GENERAL: This is an elderly male who appears his actual age. Morbidly obese. No respiratory distress. VITAL SIGNS: Currently afebrile. T-max as above, 181/97, 97% room air, 98. SKIN: Multiple ecchymoses, skin abrasions, some hyperpigmentation with macules over the mid shins. He has dystrophic toenails. No rashes. Warm and dry. NODES: He has no axillary, cervical, or submandibular adenopathy. EENT: Pupils equal, round. No conjunctival injection. Mucous membranes are dry. He will not cooperate for exam of the mouth otherwise, poor dentition. He has swelling of the left parotid gland extending below the mandibular angle, all on the left side. There is associated tenderness and warmth. NECK: No meningismus and no neck tenderness away from the parotid gland itself on the left. Trachea is in midline. LUNGS: On tidal respirations, clear to auscultation. Clear to percussion. CHEST: No indwelling vascular devices. CARDIAC: Soft, S1, S2. Regular rate and rhythm. No murmurs or gallops. ABDOMEN: Subcentimeter crusted lesion over the mid abdominal wall without periwounds. The abdomen is nontender. There are no masses. EXTREMITIES: 2+ pitting and nonpitting edema both distal legs into the feet. NEUROLOGIC: He is awake, does not respond to simple requests and mumbles. LABORATORY DATA: Blood cultures no growth after short incubation. Urine with E coli. His white count was 31.2 and 24.6, now 19.9, hemoglobin 12.6, which is down slightly. Platelets are 247. He has a mild left shift on differential. Blood gases, 7.37, 37, 58, 21, 90% on room air. His BUN is 23, creatinine 0.9. His chloride was high. Sodium, potassium normal. Glucose 177. A1c is 6.2%. CRP 32. Albumin was 3.5. His urinalysis, multiple abnormalities with many squamous cells. RADIOLOGY: Chest x-ray, atherosclerosis and spinal stimulator leads seen. Facial CT, suspected cellulitis on the left face with evidence of previous right frontal sinus surgery. Plaque was seen. Multiple carious teeth. The CT showed swelling of the parotid, submandibular, and left sternocleidomastoid muscle. No stones were seen. Hyperenhancing lymph nodes seen
[2020-02-08] MEDS: KETOROLAC 15 MG/ML VIAL (*BKC) IV PUSH (14:51)
[2020-02-08 18:13] LABS: Glucose Point of Care 183 (65-105)
[2020-02-08] MEDS: SODIUM CHLORIDE 0.9% IV 1,000 ML 60 ML IV CONT (19:28)
[2020-02-08] MEDS: INSULIN DETEMIR 100 UNITS/ML 10 UNITS SUB-Q (20:54)
[2020-02-08 20:59] LABS: Glucose Point of Care 171 (65-105)
[2020-02-08 23:21] LABS: Vancomycin Trough 10.5 ug/mL (10.0-20.0)
[2020-02-09] VITALS (26 sets, daily range): BP systolic 110–185; BP diastolic 70–100; PULSE 74–144; RESP 18–28; TEMP 36.3–36.9; O2SAT 97–100; BMI 32.8
--- NOTE | 2020-02-09 | ECHO_ITS ---
Patient Info Name: Joshua Castellano Age: 84 years : 1935 Gender: Male Ht: 71 in Wt: 250 lbs BSA: 2.42 m2 HR: 75 bpm BP: 110 / 70 mmHg Technical Quality: Fair Exam Date: 02/09/2020 11:33 AM Exam Location: [facility] Patient Status: Inpatient Admit Date: 02/06/2020 Staff Ordering Physician: Marielena Portillo PA-C Mold Closer: Lester Le RDCS, RT Attending Provider: Marielena Portillo PA-C Referring Physician: Lindsey LOPEZ; Exam Type: CA echo dop color flow w con Study Info Indications I49.01 - Ventricular fibrillation Complete two-dimensional, color flow and Doppler transthoracic echocardiogram is performed with contrast to opacify the left ventrical and to improve the deliniation of the left ventrical endocarial boarders. Summary 1. Left ventricular chamber dimension is normal. 2. Definity contrast administered improved wall motion interpretation. 3. Left ventricular systolic function is normal, estimated at 60-65%. 4. There is mildly increased left ventricular wall thickness. 5. The left ventricular diastolic function is grade I diastolic dysfunction. 6. E/e' 10 is mildly elevated. 7. The aortic valve is not well visualized. 8. There is severe aortic valve sclerosis. 9. There is moderate aortic valve stenosis based on a peak velocity of 274.00 cm/s, mean gradient of 13 mmHg, and aortic valve area of 1.44 cm2. 10. The mitral valve has moderately calcified annulus. 11. There is trace mitral valve regurgitation. 12. There is trivial pericardial effusion. Left Ventricle E/e' 10 is mildly elevated. Definity contrast administered improved wall motion interpretation. Left ventricular chamber dimension is normal. Left ventricular systolic function is normal, estimated at 60-65%. There is mildly increased left ventricular wall thickness. The left ventricular diastolic function is grade I diastolic dysfunction. Right Ventricle Right ventricular chamber dimension is normal. Right ventricular systolic function is normal. Left Atria Left atrial chamber dimension is normal. Right Atria Right atrial chamber dimension is normal. Aortic Valve There is moderate aortic valve stenosis based on a peak velocity of 274.00 cm/s, mean gradient of 13 mmHg, and aortic valve area of 1.44 cm2. Cannot determine number of aortic valve leaflets. The aortic valve is not well visualized. There is severe aortic valve sclerosis. There is no aortic valve regurgitation. Pulmonic Valve The pulmonic valve is not well visualized. Mitral Valve The mitral valve has moderately calcified annulus. There is no mitral valve stenosis. There is trace mitral valve regurgitation. Tricuspid Valve The tricuspid valve leaflets are not well visualized. There is no tricuspid valve regurgitation. Pericardium/Pleural There is trivial pericardial effusion. Inferior Vena Cava Normal inferior vena cava with >50% collapse upon inspiration consistent with normal right atrial pressure, 5 mmHg. Aorta The aortic root size at the sinus of Valsalva is not well visualized. Left Ventricular Outflow Tract Name Value Normal LVOT 2D LVOT Diameter 2.28 cm LVOT Doppler
[2020-02-09 02:05] LABS: Glucose Point of Care 155 (65-105)
[2020-02-09] MEDS: IPRATROPIUM BR 0.02% INH SOLN 0.5 MG/2.5 ML VIAL INHALATION ×4 (02:08→20:52)
[2020-02-09] MEDS: ALBUTEROL SULFATE NEB 2.5 MG/0.5 ML INH INHALATION ×4 (02:08→20:52)
[2020-02-09 04:35] LABS: Basophils Absolute Auto 0.1 K/mm3 (0.0-0.1); Basophils Percent Auto 0.4 % (0.2-1.2); Eosinophils Percent Auto 0.2 % (0-4.4); Hematocrit 36.9 % (42.0-52.0); Hemoglobin 11.9 g/dL (14.0-18.0); Immature Granulocyte Absolute 0.27 K/mm3 (0.00-0.031); Immature Granulocyte Percent A 1.7 % (0-0.5); Lymphocytes Absolute Auto 1.29 K/mm3 (0.9-3.2); Lymphocytes Percent Auto 7.9 % (18.3-44.2); Mean Corpuscular HGB Conc 32.2 g/dl (32-36); Mean Corpuscular Hemoglobin 26.7 pg (26-34); Mean Corpuscular Volume 82.9 fl (80-100); Mean Platelet Volume 9.3 fl (7.4-10.4); Monocytes Absolute Auto 1.2 K/mm3 (0.1-0.6); Monocytes Percent Auto 7.1 % (2.6-8.5); Neutrophils Absolute Auto 13.5 K/mm3 (1.3-6.7); Neutrophils Percent Auto 82.7 % (45.5-73.1); Platelet Count Result 227 k/mm3 (150-375); Red Blood Count 4.45 M/mm3 (4.6-6.20); Red Cell Distribution Width 14.1 % (11.5-14.5); White Blood Count 16.4 K/mm3 (4.5-10.0)
[2020-02-09 04:48] LABS: Blood Urea Nitrogen 16 mg/dL (9-20); Calcium 8.5 mg/dL (8.4-10.2); Carbon Dioxide 21 mmol/L (22-30); Chloride 110 mmol/L (98-107); Estimated CRCL calculation 70 ml/min; Estimated Glomerular Filt Rate > 60; Glucose 187 mg/dL (75-110); Magnesium 1.8 mg/dL (1.6-2.3); Potassium 3.4 mmol/L (3.4-5.0); Sodium 137 mmol/L (137-145)
[2020-02-09] MEDS: METOPROLOL TARTRATE INJ 5 MG/5 ML VIAL IV PUSH ×3 (05:46→16:54)
[2020-02-09 05:50] LABS: Glucose Point of Care 155 (65-105)
[2020-02-09] MEDS: ENOXAPARIN 40 MG/0.4 ML SYRINGE SUB-Q (07:51)
[2020-02-09] MEDS: SODIUM CHLORIDE 0.9% IV 1,000 ML 60 ML IV CONT (07:51)
[2020-02-09] MEDS: PANTOPRAZOLE SODIUM IV 40 MG VIAL IV PUSH (07:51)
--- NOTE | 2020-02-09 09:01 | PM.IMPN ---
Progress Note: A&P Assessment and Plan (1) Acute suppurative parotitis: Code(s): K11.21 - Acute sialoadenitis Status: Acute Assessment and Plan: The pt is being treated for acute suppurative parotitis with IV vancomycin. Dr. Villarreal with ID is on board. Speech therapy evaluated the pt 02/07 and recommended NPO for now due to aspiration risk with re-assessment in 24-48hr pending improvement in the patient's cognition. His cognition has improved today and he is alert and oriented x2. CXR was repeated yesterday without evidence of consolidation. The patient's left face and neck swelling appear to have improved somewhat. He has very thick mucopurulent secretions from his parotitis into the oropharyngeal cavity. I spoke with his daughter and POA, Claudia Bryant, today and I discussed that his prognosis is guarded. He does seem to be improving but he is at risk for airway compromise and aspiration due to his secretions. She verbalized understanding and does not want any invasive interventions including no surgical intervention or intubation. The pt is DNR. Dr. Villarreal is on board and has recommended IV vancomycin for 10-14 days. Recommendations are greatly appreciated. I discussed the case with Dr. Heart. He stated that it is reassuring that purulent fluid is draining and he would not be a surgical candidate at this time. He advised to continue IV abx, IV fluids, sour candy/sialagogues and CLD once appropriate, warm compresses, and gentle massage. Will consider the addition of steroids as needed. The pt seems to be improving at this time. Will have speech re-evaluate the pt today as he is more alert. Will consider peripheral nutrition today if he is not cleared to swallow from speech therapy. Continue frequent suctioning (2) Severe sepsis: Code(s): A41.9 - Sepsis, unspecified organism; R65.20 - Severe sepsis without septic shock Status: Acute Assessment and Plan: At presentation, the pt had fever, tachycardia, and leukocytosis with parotitis suspected as the source. His lactic acid is WNL. Blood cultures reveal NGTD. WBC is trending down and is 16.4 today. Await final blood cultures Continue to monitor vitals Continue gentle IV fluids (3) Facial cellulitis: Code(s): L03.211 - Cellulitis of face Status: Acute Assessment and Plan: The pt has extensive left face soft tissue swelling consistent with cellulitis. CT face revealed extensive soft tissue swelling of the left face involving the parotid gland, submandibular gland, surround fat, and left sternocleidomastoid muscle as well as asymmetric enlargement of the left palatine tonsil. There was no evidence of abscess on the CT face. Dr. Villarreal has recommended vancomycin IV I discussed the case with Dr. Heart as well as Richa. Dr. Heart said that surgical intervention is not recommended at this time. I discussed the case with his family as well. They want to avoid surgical intervention. Will trend WBC (4) Dehydration: Code(s): E86.0 - Dehydration Status: Acute Assessment and Plan: Continue cautious IV rehydration (5) Hypertension: Code(s): I10 - Essential (primary) hypertension Status: Acute Assessment and Plan: Blood pressures were reviewed and are elevated. The patient's home antihypertensives are held at this time. Continue metoprolol IV 5mg Q6HR Will add hydralazine PRN Will resume home PO antihypertensives once pt is no longer NPO (6) Insulin dependent type 2 diabetes mellitus: Code(s): E11.9 - Type 2 diabetes mellitus without complications; Z79.4 - residential (current) use of insulin Status: Acute Assessment and Plan: Blood sugars reviewed and at target. Pt is NPO due to inability to swallow. Patient is NPO, continue basal insulin at a decreased rate of 10 units Continue SSI Continue Q6HR Continue hypoglycemic protocol (7) Obstruct
[2020-02-09] MEDS: BUDESONIDE RESPULE NEB 0.5 MG/2 ML AMP INHALATION ×2 (09:47→20:52)
[2020-02-09] MEDS: PERFLUTREN LIPID MICROSPHERES 1.5 ML VIAL DILUTED TO 10 ML TOTAL VOLUME IV PUSH (12:00)
[2020-02-09] MEDS: LIDOCAINE HCL 1% PF INJ 5 ML VIAL INFILTRATE (13:30)
--- NOTE | 2020-02-09 14:05 | WPDINFPN2 ---
Progress Note: A&P Assessment and Plan (1) Acute suppurative parotitis: Code(s): K11.21 - Acute sialoadenitis Status: Acute Assessment and Plan: 1. Facial swelling due to parotiditis. MRSA is most common. This is bacterial and not viral in etiology 2. DM 3. Dementia 4. Swallowing dysfunction REC vanc #4 / 10-14 days. IV access for the above duration being attempted. Target trough 10-15, PharmD dosing. WBC declining slowly Subjective Date/time seen: 02/09/20 14:05 Interval history: non verbal, awake, responds to simple requests Exam Narrative: Exam Narrative: afebrile Const: General: no acute distress HENMT: Other: facial edema and erythema about the same. Poor dentition, dry mucous membranes Eyes: General: appearance normal, both eyes and all related structures Neck: Neck: supple Resp: Effort & Inspection: normal respiratory effort Auscultation: clear to auscultation bilaterally Cardio: Rate: regular rate Rhythm: regular rhythm Heart sounds: no gallops and no murmurs GI: Inspection: non-distended GI Palp: Yes Soft to palpation and No Tenderness to palpation present (GI) Objective Data Vital Signs Vital Signs: Vital Signs - 24 hr 02/08/20 16:00 02/08/20 18:00 02/08/20 18:03 Temperature 36.6 C Pulse Rate 88 89 86 Respiratory Rate 26 H Blood Pressure 185/86 H Pulse Oximetry 97 02/08/20 18:08 02/08/20 20:00 02/08/20 21:08 Temperature 36.6 C Pulse Rate 85 80 87 Respiratory Rate 20 20 Blood Pressure 140/62 Pulse Oximetry 98 96 02/08/20 21:25 02/08/20 22:00 02/08/20 23:58 Temperature Pulse Rate 87 88 80 Respiratory Rate 20 Blood Pressure Pulse Oximetry 98 02/09/20 00:00 02/09/20 01:46 02/09/20 02:08 Temperature 36.4 C L Pulse Rate 83 89 89 Respiratory Rate 20 20 Blood Pressure 185/81 H Pulse Oximetry 97 02/09/20 02:18 02/09/20 03:50 02/09/20 04:00 Temperature 36.3 C L Pulse Rate 91 98 96 Respiratory Rate 20 22 H Blood Pressure 154/81 H Pulse Oximetry 97 02/09/20 06:00 02/09/20 08:00 02/09/20 08:39 Temperature 36.4 C L 36.8 C Pulse Rate 77 82 144 H Respiratory Rate 26 H 24 H Blood Pressure 166/96 H 110/70 Pulse Oximetry 100 100 02/09/20 09:49 02/09/20 10:00 02/09/20 10:01 Temperature Pulse Rate 87 89 82 Respiratory Rate 18 26 H Blood Pressure Pulse Oximetry 98 02/09/20 11:24 02/09/20 12:00 Temperature 36.6 C Pulse Rate 88 88 Respiratory Rate 24 H Blood Pressure 169/92 H Pulse Oximetry 100 Intake/Output Intake/Output: Intake & Output 02/06/20 02/07/20 02/08/20 02/09/20 23:59 23:59 23:59 23:59 Intake Total 2049 1950 2650 1700 Balance 2049 1949 2650 1700 Meds/Results Medications: Active Medications Generic Name Dose Route Start Last Admin Trade Name Freq PRN Reason Stop Dose Admin Albuterol 2.5 mg 02/07/20 08:00 02/09/20 09:47 Albuterol Sulf Neb 2.5mg/0.5ml INHALATION 2.5 mg Q6HRT JOSIAH Administration Bisacodyl 5 mg 02/06/20 21:13 Dulcolax Tab PO DAILY PRN Constipation Budesonide 0.5 mg 02/07/20 08:00 02/09/20 09:47 Pulmicort Respule Neb INHALATION 0.5 mg Q12HRT JOSIAH Administration Dextrose 12.5 gm 02/06/20 21:12 Dextrose 50% Syringe IV PUSH PRN PRN Hypoglycemia Protocol Enoxaparin Sodium 40 mg 02/07/20 09:00 02/09/20 07:51 Lovenox SUB-Q 40 mg DAILY JOSIAH Administration Glucagon 1 mg 02/06/20 21:12 Glucagon For Inj IM PRN PRN Hypoglycemia Protocol Glucose 15 gm 02/06/20 21:12 Glutose 15 PO PRN PRN Hypoglycemia Protocol Hydralazine HCl 10 mg 02/09/20 09:32 Apresoline Hcl Inj IV PUSH Q8H PRN Blood Pressure - High SBP >180 Acetaminophen 1,000 mg in 100 mls @ 400 mls/hr 02/06/20 16:16 02/09/20 11:21 Ofirmev 1,000 Mg Ivpb IVPB Infused Q6H PRN Infusion Mild Pain (1-3) or Fever Vancomycin HCl 1,500 mg in 500 mls @ 333
[2020-02-09 14:41] LABS: Glucose Point of Care 183 (65-105)
[2020-02-09 15:32] LABS: Potassium 3.9 mmol/L (3.4-5.0)
[2020-02-09] MEDS: KETOROLAC 15 MG/ML VIAL (*BKC) IV PUSH (16:53)
[2020-02-09] MEDS: INSULIN ASPART (*BKC) 100 UNITS/ML SUB-Q (17:13)
[2020-02-09] MEDS: FAT EMULSIONS IV 20% 250 ML 20.8 ML IVPB (17:50)
[2020-02-09] MEDS: AMINO ACIDS 4.25%/D5W/LYTES/CA 2,000 ML 60 ML IV CONT (17:51)
[2020-02-09 18:00] LABS: Basophils Absolute Auto 0.1 K/mm3 (0.0-0.1); Basophils Percent Auto 0.6 % (0.2-1.2); Eosinophils Absolute Auto 0.2 K/mm3 (0-0.3); Eosinophils Percent Auto 1.2 % (0-4.4); Hematocrit 36.2 % (42.0-52.0); Hemoglobin 11.5 g/dL (14.0-18.0); Immature Granulocyte Absolute 0.46 K/mm3 (0.00-0.031); Immature Granulocyte Percent A 2.7 % (0-0.5); Lymphocytes Absolute Auto 1.36 K/mm3 (0.9-3.2); Mean Corpuscular HGB Conc 31.8 g/dl (32-36); Mean Corpuscular Hemoglobin 26.4 pg (26-34); Mean Corpuscular Volume 83.2 fl (80-100); Mean Platelet Volume 9.4 fl (7.4-10.4); Monocytes Percent Auto 5.8 % (2.6-8.5); Neutrophils Absolute Auto 13.9 K/mm3 (1.3-6.7); Neutrophils Percent Auto 81.7 % (45.5-73.1); Platelet Count Result 231 k/mm3 (150-375); Red Blood Count 4.35 M/mm3 (4.6-6.20); Red Cell Distribution Width 14.1 % (11.5-14.5); White Blood Count 17.1 K/mm3 (4.5-10.0)
[2020-02-09 18:11] LABS: Alanine Aminotransferase 46 U/L (4-50); Albumin Level 3.1 g/dL (3.5-5.1); Alkaline Phosphatase 82 U/L (38-126); Aspartate Amino Transferase 66 U/L (17-59); Bilirubin,Total 0.6 mg/dL (0.2-1.3); Blood Urea Nitrogen 12 mg/dL (9-20); Calcium 8.1 mg/dL (8.4-10.2); Carbon Dioxide 18 mmol/L (22-30); Chloride 108 mmol/L (98-107); Estimated CRCL calculation 80 ml/min; Estimated Glomerular Filt Rate > 60; Glucose 208 mg/dL (75-110); Magnesium 1.8 mg/dL (1.6-2.3); Potassium 3.6 mmol/L (3.4-5.0); Sodium 136 mmol/L (137-145)
[2020-02-09 18:18] LABS: Transferrin 126 mg/dL (206-381)
[2020-02-09 18:29] LABS: Glucose Point of Care 213 (65-105)
[2020-02-09 18:34] LABS: Partial Thromboplastin Time 24.5 SECONDS (22.3-36.8)
[2020-02-09 21:14] LABS: Glucose Point of Care 170 (65-105)
[2020-02-09] MEDS: INSULIN DETEMIR 100 UNITS/ML 10 UNITS SUB-Q (21:14)
[2020-02-10] VITALS (27 sets, daily range): BP systolic 135–183; BP diastolic 71–109; PULSE 67–128; RESP 20–24; TEMP 36.6–37.1; O2SAT 95–100
[2020-02-10 00:13] LABS: Glucose Point of Care 202 (65-105)
[2020-02-10] MEDS: hydrALAZINE HCL 20 MG/ML VIAL 10 MG IV PUSH (00:56)
[2020-02-10] MEDS: METOPROLOL TARTRATE INJ 5 MG/5 ML VIAL IV PUSH ×3 (00:57→11:59)
[2020-02-10] MEDS: INSULIN ASPART (*BKC) 100 UNITS/ML SUB-Q ×4 (00:59→17:05)
[2020-02-10] MEDS: ALBUTEROL SULFATE NEB 2.5 MG/0.5 ML INH INHALATION ×2 (02:12→08:28)
[2020-02-10] MEDS: IPRATROPIUM BR 0.02% INH SOLN 0.5 MG/2.5 ML VIAL INHALATION ×4 (02:12→19:56)
[2020-02-10] MEDS: KETOROLAC 15 MG/ML VIAL (*BKC) IV PUSH ×2 (05:37→11:57)
[2020-02-10 05:48] LABS: Glucose Point of Care 206 (65-105)
[2020-02-10 06:09] LABS: Basophils Absolute Auto 0.1 K/mm3 (0.0-0.1); Basophils Percent Auto 0.8 % (0.2-1.2); Eosinophils Absolute Auto 0.5 K/mm3 (0-0.3); Eosinophils Percent Auto 2.7 % (0-4.4); Hematocrit 37.8 % (42.0-52.0); Immature Granulocyte Absolute 0.82 K/mm3 (0.00-0.031); Immature Granulocyte Percent A 4.7 % (0-0.5); Lymphocytes Absolute Auto 1.11 K/mm3 (0.9-3.2); Lymphocytes Percent Auto 6.4 % (18.3-44.2); Mean Corpuscular HGB Conc 31.7 g/dl (32-36); Mean Corpuscular Hemoglobin 26.7 pg (26-34); Mean Platelet Volume 9.6 fl (7.4-10.4); Monocytes Absolute Auto 0.9 K/mm3 (0.1-0.6); Neutrophils Absolute Auto 13.9 K/mm3 (1.3-6.7); Neutrophils Percent Auto 80.4 % (45.5-73.1); Platelet Count Result 233 k/mm3 (150-375); Red Cell Distribution Width 14.4 % (11.5-14.5); White Blood Count 17.3 K/mm3 (4.5-10.0)
[2020-02-10 06:19] LABS: Alanine Aminotransferase 47 U/L (4-50); Albumin Level 3.1 g/dL (3.5-5.1); Alkaline Phosphatase 83 U/L (38-126); Aspartate Amino Transferase 58 U/L (17-59); Bilirubin,Total 0.4 mg/dL (0.2-1.3); Blood Urea Nitrogen 14 mg/dL (9-20); Calcium 8.4 mg/dL (8.4-10.2); Carbon Dioxide 21 mmol/L (22-30); Chloride 106 mmol/L (98-107); Estimated CRCL calculation 91 ml/min; Estimated Glomerular Filt Rate > 60; Glucose 239 mg/dL (75-110); Magnesium 1.9 mg/dL (1.6-2.3); Phosphorus 2.7 mg/dL (2.5-4.5); Potassium 3.8 mmol/L (3.4-5.0); Sodium 134 mmol/L (137-145)
--- NOTE | 2020-02-10 08:16 | PM.IMPN ---
Progress Note: A&P Assessment and Plan (1) Acute suppurative parotitis: Code(s): K11.21 - Acute sialoadenitis Status: Acute Assessment and Plan: The pt is being treated for acute suppurative parotitis with IV vancomycin. Dr. Villarreal with ID is on board. Speech therapy evaluated the pt 02/08 and recommended NPO with a small amount of ice chips. They plan to do a modified barium swallow today if appropriate. The patient's left face and neck surrounding edema have improved but the parotid gland is still very firm and tender. He continues to have very thick, mucopurulent secretions. I spoke with his daughter and POA, Claudia Bryant, yesterday and I discussed that his prognosis is guarded. He does seem to be improving but he is at risk for airway compromise and aspiration due to his secretions. She verbalized understanding and does not want any invasive interventions including no surgical intervention or intubation. The pt is DNR. Dr. Villarreal is on board and has recommended IV vancomycin for 14 days. Recommendations are greatly appreciated. I discussed the case with Dr. Heart. He stated that it is reassuring that purulent fluid is draining and he would not be a surgical candidate at this time. He advised to continue IV abx, IV fluids, sour candy/sialagogues and CLD once appropriate, warm compresses, and gentle massage. Discussed with speech therapy and the tentative plan is for a modified barium swallow today Continue warm compresses and gentle massage Continue frequent suctioning (2) Severe sepsis: Code(s): A41.9 - Sepsis, unspecified organism; R65.20 - Severe sepsis without septic shock Status: Acute Assessment and Plan: At presentation, the pt had fever, tachycardia, and leukocytosis with parotitis suspected as the source. His lactic acid was WNL. Blood cultures reveal NGTD. WBC is slightly up today to 17.3. Continue IV antibiotics Await final blood cultures Continue to monitor vitals Continue gentle IV fluids Continue to monitor WBC (3) Facial cellulitis: Code(s): L03.211 - Cellulitis of face Status: Acute Assessment and Plan: CT face revealed extensive soft tissue swelling of the left face involving the parotid gland, submandibular gland, surrounding fat, and left sternocleidomastoid muscle as well as asymmetric enlargement of the left palatine tonsil. There was no evidence of abscess on the CT face. Erythema is improving. The parotid gland is still mildly warm to touch but the pt will now tolerate gentle massage and pain is improving. Dr. Villarreal has recommended vancomycin IV I discussed the case with Dr. Heart as well as Richa. Dr. Heart said that surgical intervention is not recommended at this time. I discussed the case with his family as well. They want to avoid surgical intervention. Will trend WBC (4) Dehydration: Code(s): E86.0 - Dehydration Status: Resolved Assessment and Plan: Clinically, the pt appears adequately hydrated. IV fluids were discontinued as he is on peripheral nutrition now. (5) Hypertension: Code(s): I10 - Essential (primary) hypertension Status: Acute Assessment and Plan: Blood pressures were reviewed and are elevated but improving. Suspect this will improve once his acute illness improves. Hopefully, we can add back the patient's PO medications soon. 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 His home insulin was decreased because he was NPO. Blood sugars are increasing due to the addition of peripheral nutrition. FBS 239. Will incr
[2020-02-10] MEDS: BUDESONIDE RESPULE NEB 0.5 MG/2 ML AMP INHALATION ×2 (08:28→19:56)
[2020-02-10] MEDS: PANTOPRAZOLE SODIUM IV 40 MG VIAL IV PUSH (09:33)
[2020-02-10] MEDS: ENOXAPARIN 40 MG/0.4 ML SYRINGE SUB-Q (09:33)
--- NOTE | 2020-02-10 09:33 | ECG_ITS ---
Measurements Intervals [place] Rate: 89 P: 57 WV: 182 QRS: -37 QRSD: 110 T: 27 QT: 382 QTc: 465 Interpretive Statements SINUS RHYTHM SUPRAVENTRICULAR BIGEMINY LEFT AXIS DEVIATION INTRAVENTRICULAR CONDUCTION DELAY DELAYED PRECORDIAL R/S TRANSITION ABNORMAL ECG Electronically Signed On 02-10-2020 10:41:51 CDT by Mynor Rey D.O.
--- NOTE | 2020-02-10 09:33 | PCDIET ---
Nutrition Follow-Up Complete: Nutrition Diagnosis: Inadequate oral intake related to inability to safely swallow as evidenced by NPO diet, ORDER CLERK recommendation for NPO. Nutrition Goal: Patient to meet estimated nutritional needs. Goal in progress. Clinimix E 4.25/5 is running at 60mL/hr, along with 250mL 20% lipids daily, for total of 990kcal and 61g protein. Noted plan for MBS today. If unable to safely advance diet in the next 2-3 days, recommend transition to central parenteral nutrition. If medically appropriate/feasible and longer term nutrition support is anticipated, enteral nutrition would be ideal. Last recorded weight is 115.6 kg which is increased from last review. +I/O noted. Bowel Motility: No documented bowel movements as of yet. Labs Reviewed: Hgb (12.0), Hct (37.8), Glu (206), Na (134), Alb (3.1) Meds Noted: Albuterol, Novolog, Levemir, Atrovent, Protonix, Vancomycin, KCl Additional Notes: No documented skin breakdown. If medically appropriate, would consider medication(s) to promote BM. Nutrition Monitoring and Evaluation: Follow up every Thursday/Thursday.
[2020-02-10 10:26] LABS: Troponin I 0.024 ng/mL (0.000-0.034)
[2020-02-10 10:39] LABS: Vancomycin Trough 12.6 ug/mL (10.0-20.0)
[2020-02-10 12:03] LABS: Glucose Point of Care 235 (65-105)
--- NOTE | 2020-02-10 14:25 | PC.NURSE ---
This patient, Joshua Castellano, was transferred to [facility] on 02/10/20 at 1425. Personal belongings sent with patient. Report given to Jason CHURCH. Appropriate documentation sent with patient.
--- NOTE | 2020-02-10 14:30 | PC.NURSE ---
This patient, Joshua Castellano, was received from [facility] on 02/10/20 at 1605. Personal belongings list checked and signed. Patient/family oriented to unit policies and routines
--- NOTE | 2020-02-10 15:12 | WPDINFPN2 ---
Progress Note: A&P Assessment and Plan (1) Acute suppurative parotitis: Code(s): K11.21 - Acute sialoadenitis Status: Acute Assessment and Plan: 1. Facial swelling due to parotiditis. MRSA is most common. BCs ngsf 2. DM 3. Dementia 4. Swallowing dysfunction, now with tpn 5. Leukocytosis due to #1 REC vanc #5 / 10-14 days, probably the longer duration. PICC in place. Target trough 10-15, PharmD dosing. Subjective Date/time seen: 02/10/20 15:12 Interval history: offers no complaints. He is confused as to which side his symptoms are. Exam Narrative: Exam Narrative: afebrile Const: General: no acute distress HENMT: Other: erythema is resolved. Edema is moderately better. No tenderness today. No neck masses, and extent of mandibular edema is less Neck: Neck: supple Resp: Effort & Inspection: normal respiratory effort Auscultation: clear to auscultation bilaterally Cardio: Rate: regular rate Rhythm: regular rhythm Heart sounds: no gallops and no murmurs Skin: General skin exam: no rashes or lesions noted Other: iv site is without erythema or cord Objective Data Vital Signs Vital Signs: Vital Signs - 24 hr 02/09/20 16:00 02/09/20 16:54 02/09/20 17:59 Temperature 36.5 C Pulse Rate 75 85 75 Respiratory Rate 28 H Blood Pressure 154/93 H Pulse Oximetry 100 02/09/20 19:57 02/09/20 20:00 02/09/20 20:55 Temperature 36.6 C Pulse Rate 80 79 Respiratory Rate 18 18 Blood Pressure 178/98 H Pulse Oximetry 97 97 99 02/09/20 20:59 02/09/20 21:18 02/09/20 21:51 Temperature Pulse Rate 82 88 88 Respiratory Rate 20 20 Blood Pressure Pulse Oximetry 02/09/20 23:58 02/10/20 00:00 02/10/20 00:57 Temperature 36.9 C Pulse Rate 96 82 78 Respiratory Rate 24 H 24 H Blood Pressure 185/100 H Pulse Oximetry 99 99 02/10/20 02:00 02/10/20 02:02 02/10/20 02:14 Temperature Pulse Rate 70 77 Respiratory Rate 20 Blood Pressure 183/97 H Pulse Oximetry 02/10/20 02:24 02/10/20 03:51 02/10/20 04:00 Temperature 36.6 C Pulse Rate 82 86 83 Respiratory Rate 20 24 H 24 H Blood Pressure 151/75 H Pulse Oximetry 99 99 02/10/20 05:37 02/10/20 06:00 02/10/20 07:59 Temperature 36.6 C Pulse Rate 91 74 89 Respiratory Rate 22 H Blood Pressure 152/109 H Pulse Oximetry 98 02/10/20 08:25 02/10/20 08:35 02/10/20 09:00 Temperature Pulse Rate 82 85 87 Respiratory Rate 20 20 Blood Pressure Pulse Oximetry 97 02/10/20 10:00 02/10/20 11:59 02/10/20 12:00 Temperature 36.8 C Pulse Rate 89 87 85 Respiratory Rate 20 Blood Pressure 143/71 H Pulse Oximetry 100 Intake/Output Intake/Output: Intake & Output 02/07/20 02/08/20 02/09/20 02/10/20 23:59 23:59 23:59 23:59 Intake Total 1950 2650 2920 1078 Balance 1950 2650 2920 1078 Meds/Results Medications: Active Medications Generic Name Dose Route Start Last Admin Trade Name Freq PRN Reason Stop Dose Admin Albuterol 2.5 mg 02/10/20 08:36 Albuterol Sulf Neb 2.5mg/0.5ml INHALATION Q6HRT PRN Shortness Of Breath Or Wheezing Bisacodyl 5 mg 02/06/20 21:13 Dulcolax Tab PO DAILY PRN Constipation Budesonide 0.5 mg 02/07/20 08:00 02/10/20 08:28 Pulmicort Respule Neb INHALATION 0.5 mg Q12HRT JOSIAH Administration Dextrose 12.5 gm 02/06/20 21:12 Dextrose 50% Syringe IV PUSH PRN PRN Hypoglycemia Protocol Enoxaparin Sodium 40 mg 02/07/20 09:00 02/10/20 09:33 Lovenox SUB-Q 40 mg DAILY JOSIAH Administration Glucagon 1 mg 02/06/20 21:12 Glucagon For Inj IM PRN PRN Hypoglycemia Protocol Glucose 15 gm 02/06/20 21:12 Glutose 15 PO PRN PRN Hypoglycemia Protocol Hydralazine HCl 10 mg 02/09/20 09:32 02/10/20 00:56 Apresoline Hcl Inj IV PUSH 10 mg Q8H PRN Administration Blood Pressure - High SBP >180 Acetaminophen 1,000 mg in 100 mls @ 400 mls/hr
[2020-02-10 16:31] LABS: Glucose Point of Care 203 (65-105)
[2020-02-10 17:34] LABS: Triglycerides 156 mg/dL (<150)
[2020-02-10] MEDS: ACETAMINOPHEN 325 MG TABLET 650 MG PO (18:41)
[2020-02-10] MEDS: FERROUS SULFATE 324 MG TABLET PO (18:41)
--- NOTE | 2020-02-10 18:47 | PC.NURSE ---
Performed facial massage per MD order.
[2020-02-10] MEDS: DULOXETINE HCL 30 MG CAPSULE.DR PO (20:17)
[2020-02-10] MEDS: TOPIRAMATE 25 MG TABLET 50 MG PO (20:17)
[2020-02-10] MEDS: hydrOXYzine HCL 25 MG TABLET PO (20:17)
[2020-02-10] MEDS: MONTELUKAST SODIUM 10 MG TABLET PO (20:17)
[2020-02-10] MEDS: ASCORBIC ACID 500 MG TABLET PO (20:18)
[2020-02-10] MEDS: MEMANTINE 10 MG TABLET PO (20:18)
[2020-02-10] MEDS: INSULIN DETEMIR 100 UNITS/ML 15 UNITS SUB-Q (20:18)
[2020-02-10] MEDS: carvediloL 12.5 MG TABLET PO (20:18)
[2020-02-10] MEDS: TRAMADOL HCL 50 MG TABLET PO (20:18)
[2020-02-10] MEDS: DOCUSATE SODIUM 100 MG CAPSULE PO (20:18)
[2020-02-10 20:28] LABS: Glucose Point of Care 215 (65-105)
[2020-02-11] VITALS (18 sets, daily range): BP systolic 129–161; BP diastolic 66–91; PULSE 70–106; RESP 16–24; TEMP 36.5–37.2; O2SAT 93–98
[2020-02-11] MEDS: IPRATROPIUM BR 0.02% INH SOLN 0.5 MG/2.5 ML VIAL INHALATION ×4 (02:05→19:38)
[2020-02-11] MEDS: hydrOXYzine HCL 25 MG TABLET PO (05:06)
[2020-02-11] MEDS: TRAMADOL HCL 50 MG TABLET PO ×3 (05:06→21:18)
[2020-02-11 05:20] LABS: Basophils Absolute Auto 0.1 K/mm3 (0.0-0.1); Basophils Percent Auto 0.7 % (0.2-1.2); Eosinophils Absolute Auto 0.6 K/mm3 (0-0.3); Hematocrit 33.6 % (42.0-52.0); Hemoglobin 10.8 g/dL (14.0-18.0); Immature Granulocyte Absolute 0.79 K/mm3 (0.00-0.031); Immature Granulocyte Percent A 5.7 % (0-0.5); Lymphocytes Absolute Auto 1.21 K/mm3 (0.9-3.2); Lymphocytes Percent Auto 8.8 % (18.3-44.2); Mean Corpuscular HGB Conc 32.1 g/dl (32-36); Mean Corpuscular Hemoglobin 26.7 pg (26-34); Mean Platelet Volume 9.3 fl (7.4-10.4); Monocytes Absolute Auto 1.1 K/mm3 (0.1-0.6); Monocytes Percent Auto 7.7 % (2.6-8.5); Neutrophils Absolute Auto 10.1 K/mm3 (1.3-6.7); Neutrophils Percent Auto 73.1 % (45.5-73.1); Platelet Count Result 208 k/mm3 (150-375); Red Blood Count 4.05 M/mm3 (4.6-6.20); Red Cell Distribution Width 14.3 % (11.5-14.5); White Blood Count 13.8 K/mm3 (4.5-10.0)
[2020-02-11 05:41] LABS: Albumin Level 2.9 g/dL (3.5-5.1); Blood Urea Nitrogen 17 mg/dL (9-20); Calcium 8.4 mg/dL (8.4-10.2); Carbon Dioxide 22 mmol/L (22-30); Chloride 106 mmol/L (98-107); Estimated CRCL calculation 72 ml/min; Estimated Glomerular Filt Rate > 60; Glucose 175 mg/dL (75-110); Magnesium 1.9 mg/dL (1.6-2.3); Phosphorus 2.5 mg/dL (2.5-4.5); Potassium 3.8 mmol/L (3.4-5.0); Sodium 133 mmol/L (137-145)
[2020-02-11] MEDS: BUDESONIDE RESPULE NEB 0.5 MG/2 ML AMP INHALATION ×2 (07:47→19:38)
[2020-02-11 08:03] LABS: Glucose Point of Care 200 (65-105)
[2020-02-11] MEDS: ENOXAPARIN 40 MG/0.4 ML SYRINGE SUB-Q (08:06)
[2020-02-11] MEDS: PANTOPRAZOLE 40 MG TABLET PO (08:07)
[2020-02-11] MEDS: AMLODIPINE BESYLATE 5 MG TABLET 10 MG PO (08:07)
[2020-02-11] MEDS: FERROUS SULFATE 324 MG TABLET PO ×2 (08:07→17:23)
[2020-02-11] MEDS: carvediloL 12.5 MG TABLET PO ×2 (08:07→20:08)
[2020-02-11] MEDS: TOPIRAMATE 25 MG TABLET 50 MG PO ×2 (08:07→20:02)
[2020-02-11] MEDS: DOCUSATE SODIUM 100 MG CAPSULE PO ×2 (08:07→20:02)
[2020-02-11] MEDS: DULOXETINE HCL 30 MG CAPSULE.DR PO ×2 (08:08→20:03)
[2020-02-11] MEDS: ASCORBIC ACID 500 MG TABLET PO ×2 (08:08→20:02)
[2020-02-11] MEDS: LIDOCAINE 5% PATCH 1 PATCH TRANSDERM (08:08)
[2020-02-11] MEDS: MEMANTINE 10 MG TABLET PO ×2 (08:08→20:03)
[2020-02-11] MEDS: CHOLECALCIFEROL 1,000 UNIT TABLET 1000 UNITS PO (08:08)
[2020-02-11] MEDS: polyethylene glycoL 3350 17 GM POWD.PACK PO (08:09)
[2020-02-11] MEDS: ASPIRIN 81 MG ENTERIC TABLET PO (08:10)
--- NOTE | 2020-02-11 09:50 | P.PNIM_ITS ---
Progress Note: A&P Assessment and Plan (1) Acute suppurative parotitis: Code(s): K11.21 - Acute sialoadenitis Status: Acute Assessment and Plan: The pt is being treated for acute suppurative parotitis with IV vancomycin. Dr. Villarreal with ID is on board. His parotid swelling has improved. He underwent modified barium swallow yesterday and his diet was advanced per ABRASIVE GRADER recommendations. He is tolerating this well. His pain has improved. * Dr. Villarreal is on board and has recommended IV vancomycin for 14 days. Recommendations are greatly appreciated. * Will continue gentle IV fluids since the patient's PO fluid intake is low * Continue warm compresses and gentle massage * Continue frequent suctioning as needed * Will add saliva substitute (2) Severe sepsis: Code(s): A41.9 - Sepsis, unspecified organism; R65.20 - Severe sepsis without septic shock Status: Acute Assessment and Plan: At presentation, the pt had fever, tachycardia, and leukocytosis with parotitis suspected as the source. His lactic acid was WNL. Blood cultures reveal NGTD. He is afebrile. WBC is trending down. * Continue IV antibiotics * Await final blood cultures * Continue gentle IV fluids * Continue to monitor WBC (3) Facial cellulitis: Code(s): L03.211 - Cellulitis of face Status: Resolved Assessment and Plan: Erythema has resolved. * Continue IV vancomycin * Will trend WBC (4) Hypertension: Code(s): I10 - Essential (primary) hypertension Status: Acute Assessment and Plan: Blood pressures were reviewed and are elevated but improving. He will resume his full home regimen today. * Continue carvedilol * Continue amlodpine * Continue IV hydralazine PRN * Continue to monitor (5) Insulin dependent type 2 diabetes mellitus: Code(s): E11.9 - Type 2 diabetes mellitus without complications; Z79.4 - superintendent terminal (current) use of insulin Status: Acute Assessment and Plan: Blood sugars reviewed and still not at target with FBS 125. The pt is no longer NPO. * Resume home long-acting dose of glargine, will substitute with lantus * Continue SSI * ACHS * Continue hypoglycemic protocol (6) Obstructive sleep apnea: Code(s): G47.33 - Obstructive sleep apnea (adult) (pediatric) Status: Chronic Assessment and Plan: * Will see if the pt can tolerate CPAP titrated to home settings tonight (7) Non-sustained ventricular tachycardia: Code(s): I47.2 - Ventricular tachycardia Status: Resolved Assessment and Plan: Telemetry reviewed with sinus rhythm with frequent PVCs now that he is back on his home dose of carvedilol. 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 * Continue scheduled nebulizers * Continue budesonide * Continue montelukast (9) Congestive heart failure: Code(s): I50.9 - Heart failure, unspecified Status: Chronic Assessment and Plan: The pt has a hx of CHF. He is not in acute exacerbation. Echo was repeated and revealed EF of 60-65% with grade I diastolic dysfunction. He also has moderate aortic valve stenosis with peak velocity of 274.00 cm/s, mean gradient of 13 mmHg, and aortic valve area of 1.44 cm2.
--- NOTE | 2020-02-11 09:50 | PM.IMPN ---
Progress Note: A&P Assessment and Plan (1) Acute suppurative parotitis: Code(s): K11.21 - Acute sialoadenitis Status: Acute Assessment and Plan: The pt is being treated for acute suppurative parotitis with IV vancomycin. Dr. Villarreal with ID is on board. His parotid swelling has improved. He underwent modified barium swallow yesterday and his diet was advanced per PATENT ATTORNEY recommendations. He is tolerating this well. His pain has improved. Dr. Villarreal is on board and has recommended IV vancomycin for 14 days. Recommendations are greatly appreciated. Will continue gentle IV fluids since the patient's PO fluid intake is low Continue warm compresses and gentle massage Continue frequent suctioning as needed Will add saliva substitute (2) Severe sepsis: Code(s): A41.9 - Sepsis, unspecified organism; R65.20 - Severe sepsis without septic shock Status: Acute Assessment and Plan: At presentation, the pt had fever, tachycardia, and leukocytosis with parotitis suspected as the source. His lactic acid was WNL. Blood cultures reveal NGTD. He is afebrile. WBC is trending down. Continue IV antibiotics Await final blood cultures Continue gentle IV fluids Continue to monitor WBC (3) Facial cellulitis: Code(s): L03.211 - Cellulitis of face Status: Resolved Assessment and Plan: Erythema has resolved. Continue IV vancomycin Will trend WBC (4) Hypertension: Code(s): I10 - Essential (primary) hypertension Status: Acute Assessment and Plan: Blood pressures were reviewed and are elevated but improving. He will resume his full home regimen today. Continue carvedilol Continue amlodpine Continue IV hydralazine PRN Continue to monitor (5) Insulin dependent type 2 diabetes mellitus: Code(s): E11.9 - Type 2 diabetes mellitus without complications; Z79.4 - residential (current) use of insulin Status: Acute Assessment and Plan: Blood sugars reviewed and still not at target with FBS 125. The pt is no longer NPO. Resume home long-acting dose of glargine, will substitute with lantus Continue SSI ACHS Continue hypoglycemic protocol (6) Obstructive sleep apnea: Code(s): G47.33 - Obstructive sleep apnea (adult) (pediatric) Status: Chronic Assessment and Plan: Will see if the pt can tolerate CPAP titrated to home settings tonight (7) Non-sustained ventricular tachycardia: Code(s): I47.2 - Ventricular tachycardia Status: Resolved Assessment and Plan: Telemetry reviewed with sinus rhythm with frequent PVCs now that he is back on his home dose of carvedilol. 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 Continue scheduled nebulizers Continue budesonide Continue montelukast (9) Congestive heart failure: Code(s): I50.9 - Heart failure, unspecified Status: Chronic Assessment and Plan: The pt has a hx of CHF. He is not in acute exacerbation. Echo was repeated and revealed EF of 60-65% with grade I diastolic dysfunction. He also has moderate aortic valve stenosis with peak velocity of 274.00 cm/s, mean gradient of 13 mmHg, and aortic valve area of 1.44 cm2. Continue to monitor volume status Subjective Date/time seen: 02/11/20 09:50 Interval history: Mr. Castellano is seen and examined at bedside in follow-up for acute suppurative parotitis. He reports mild frontal headache. He also feels constipated. A BM was charted yesterday. He denies nausea and vomiting. He states that he is tolerating PO intake well. He denies chest pain and SOB. He reports cough. He denies dizziness and lightheadedness. Review of Systems Review of Sy
[2020-02-11] MEDS: SODIUM CHLORIDE 0.9% IV 1,000 ML 60 ML IV CONT (11:23)
[2020-02-11 11:48] LABS: Glucose Point of Care 177 (65-105)
[2020-02-11] MEDS: SALIVA SUBSTITUTE COMBO RINSE 237 ML BOTTLE 15 ML PO (14:50)
[2020-02-11 16:37] LABS: Glucose Point of Care 150 (65-105)
[2020-02-11] MEDS: MONTELUKAST SODIUM 10 MG TABLET PO (20:02)
[2020-02-11] MEDS: INSULIN DETEMIR 100 UNITS/ML 25 UNITS SUB-Q (20:11)
[2020-02-11 20:49] LABS: Glucose Point of Care 227 (65-105)
[2020-02-12] VITALS (18 sets, daily range): BP systolic 125–144; BP diastolic 52–78; PULSE 66–80; RESP 14–24; TEMP 36.3–36.7; O2SAT 92–98; BMI 10.0
[2020-02-12] MEDS: IPRATROPIUM BR 0.02% INH SOLN 0.5 MG/2.5 ML VIAL INHALATION ×5 (01:48→19:36)
[2020-02-12] MEDS: TRAMADOL HCL 50 MG TABLET PO ×3 (05:45→22:08)
[2020-02-12 06:01] LABS: Basophils Absolute Auto 0.1 K/mm3 (0.0-0.1); Basophils Percent Auto 0.7 % (0.2-1.2); Eosinophils Absolute Auto 0.7 K/mm3 (0-0.3); Eosinophils Percent Auto 5.8 % (0-4.4); Hematocrit 32.3 % (42.0-52.0); Hemoglobin 10.2 g/dL (14.0-18.0); Immature Granulocyte Absolute 0.63 K/mm3 (0.00-0.031); Immature Granulocyte Percent A 5.7 % (0-0.5); Lymphocytes Absolute Auto 1.21 K/mm3 (0.9-3.2); Lymphocytes Percent Auto 10.9 % (18.3-44.2); Mean Corpuscular HGB Conc 31.6 g/dl (32-36); Mean Corpuscular Hemoglobin 26.6 pg (26-34); Mean Corpuscular Volume 84.3 fl (80-100); Mean Platelet Volume 9.7 fl (7.4-10.4); Monocytes Absolute Auto 1.2 K/mm3 (0.1-0.6); Monocytes Percent Auto 10.3 % (2.6-8.5); Neutrophils Absolute Auto 7.4 K/mm3 (1.3-6.7); Neutrophils Percent Auto 66.6 % (45.5-73.1); Platelet Count Result 223 k/mm3 (150-375); Red Blood Count 3.83 M/mm3 (4.6-6.20); Red Cell Distribution Width 14.6 % (11.5-14.5); White Blood Count 11.1 K/mm3 (4.5-10.0)
[2020-02-12 06:22] LABS: Alanine Aminotransferase 57 U/L (4-50); Albumin Level 2.7 g/dL (3.5-5.1); Alkaline Phosphatase 70 U/L (38-126); Aspartate Amino Transferase 37 U/L (17-59); Bilirubin,Total 0.3 mg/dL (0.2-1.3); Blood Urea Nitrogen 15 mg/dL (9-20); Calcium 7.8 mg/dL (8.4-10.2); Carbon Dioxide 20 mmol/L (22-30); Chloride 108 mmol/L (98-107); Estimated CRCL calculation 72 ml/min; Estimated Glomerular Filt Rate > 60; Glucose 146 mg/dL (75-110); Magnesium 1.9 mg/dL (1.6-2.3); Potassium 3.9 mmol/L (3.4-5.0); Sodium 134 mmol/L (137-145)
[2020-02-12] MEDS: SODIUM CHLORIDE 0.9% IV 1,000 ML 60 ML IV CONT (07:11)
[2020-02-12] MEDS: BUDESONIDE RESPULE NEB 0.5 MG/2 ML AMP INHALATION ×2 (07:55→19:36)
[2020-02-12 07:59] LABS: Glucose Point of Care 143 (65-105)
[2020-02-12] MEDS: TOPIRAMATE 25 MG TABLET 50 MG PO ×2 (08:03→20:36)
[2020-02-12] MEDS: ASPIRIN 81 MG ENTERIC TABLET PO (08:03)
[2020-02-12] MEDS: MEMANTINE 10 MG TABLET PO ×2 (08:03→20:36)
[2020-02-12] MEDS: DOCUSATE SODIUM 100 MG CAPSULE PO ×2 (08:03→20:37)
[2020-02-12] MEDS: CHOLECALCIFEROL 1,000 UNIT TABLET 1000 UNITS PO (08:04)
[2020-02-12] MEDS: PANTOPRAZOLE 40 MG TABLET PO (08:04)
[2020-02-12] MEDS: AMLODIPINE BESYLATE 5 MG TABLET 10 MG PO (08:04)
[2020-02-12] MEDS: DULOXETINE HCL 30 MG CAPSULE.DR PO ×2 (08:04→20:36)
[2020-02-12] MEDS: FERROUS SULFATE 324 MG TABLET PO ×2 (08:04→18:15)
[2020-02-12] MEDS: ACETAMINOPHEN 325 MG TABLET 650 MG PO ×2 (08:04→18:15)
[2020-02-12] MEDS: ASCORBIC ACID 500 MG TABLET PO ×2 (08:04→20:36)
[2020-02-12] MEDS: carvediloL 12.5 MG TABLET PO ×2 (08:04→20:44)
[2020-02-12] MEDS: ENOXAPARIN 40 MG/0.4 ML SYRINGE SUB-Q (08:05)
[2020-02-12] MEDS: LIDOCAINE 5% PATCH 1 PATCH TRANSDERM (08:05)
[2020-02-12] MEDS: polyethylene glycoL 3350 17 GM POWD.PACK PO (08:05)
[2020-02-12] MEDS: SALIVA SUBSTITUTE COMBO RINSE 237 ML BOTTLE 15 ML PO (08:17)
--- NOTE | 2020-02-12 10:36 | PM.IMPN ---
Progress Note: A&P Assessment and Plan (1) Acute suppurative parotitis: Code(s): K11.21 - Acute sialoadenitis Status: Acute Assessment and Plan: The pt is being treated for acute suppurative parotitis with IV vancomycin. Dr. Villarreal with ID is on board. His swelling continues to improve. Dr. Villarreal is on board and has recommended IV vancomycin for 14 days. Vancomycin was initiated 02/05. Recommendations are greatly appreciated. Will continue gentle IV fluids since the patient's PO fluid intake is low. I will ask speech to evaluate the pt today to see if he may advance his fluids from thickened. Continue warm compresses and gentle massage Continue frequent suctioning as needed Continue saliva substitute and sour drinks (2) Severe sepsis: Code(s): A41.9 - Sepsis, unspecified organism; R65.20 - Severe sepsis without septic shock Status: Resolved Assessment and Plan: At presentation, the pt had fever, tachycardia, and leukocytosis with parotitis suspected as the source. His lactic acid was WNL. Blood cultures are final and reveal no growth. He is afebrile. WBC is trending down and is 11.1 today. Continue IV antibiotics Continue to monitor WBC (3) Hypertension: Code(s): I10 - Essential (primary) hypertension Status: Acute Assessment and Plan: Blood pressures were reviewed and are elevated at target on his home antihypertensive regimen. 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 Fasting blood sugar today was 143. 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 Continue scheduled nebulizers Continue budesonide Continue montelukast (7) Congestive heart failure: Code(s): I50.9 - Heart failure, unspecified Status: Chronic Assessment and Plan: The pt has a hx of CHF. He is not in acute exacerbation. Echo was repeated and revealed EF of 60-65% with grade I diastolic dysfunction. He also has moderate aortic valve stenosis with peak velocity of 274.00 cm/s, mean gradient of 13 mmHg, and aortic valve area of 1.44 cm2. Continue to monitor volume status Subjective Date/time seen: 02/12/20 10:36 Interval history: Mr. Castellano is seen and examined today at bedside in follow-up for acute suppurative parotitis. He reports mild headache and is requesting regular liquids. He is tolerating PO intake well. He reports mild left sided facial pain to palpation of the parotid gland. He also reports SOB. He denies chest pain. He was able to tolerate his CPAP yesterday. He denies nausea and vomiting today. Hx is limited due to his dementia. Review of Systems Review of Systems: All systems reviewed & are unremarkable except as noted in HPI and below Exam Narrative: Exam Narrative: General: Well-developed 84 y.o. male in bed resting. He is in no acute distress. HEENT: Poor dentition with carries. Parotid gland swelling is improving, it is still firm and tender to palpation. No significant calor or overlying erythema. Mucous membranes are moist. Neck: Supple. No lymphadenopathy. No edema. Cardiac: Rate and rhythm regular. Normal S1 and S2. Lungs: Tachypnea.
[2020-02-12 11:57] LABS: Glucose Point of Care 165 (65-105)
[2020-02-12] MEDS: ALTEPLASE 2 MG VIAL (CATHFLO) IV PUSH ×2 (16:14→16:40)
[2020-02-12 16:23] LABS: Glucose Point of Care 141 (65-105)
--- NOTE | 2020-02-12 17:45 | PC.NURSE ---
Called MANOJ Martinez patient experiencing new swelling in right arm. Patient complains of pain with palpation surrounding PICC line. Per MANOJ Martinez to order stat CXR to determine placement of PICC and US to assess for clots. Left message with Aury Cortez, Vascular RN. Will continue to monitor patient.
[2020-02-12] MEDS: MONTELUKAST SODIUM 10 MG TABLET PO (20:37)
[2020-02-12] MEDS: INSULIN DETEMIR 100 UNITS/ML 25 UNITS SUB-Q (20:44)
[2020-02-12 21:01] LABS: Glucose Point of Care 172 (65-105)
[2020-02-13] VITALS (24 sets, daily range): BP systolic 132–153; BP diastolic 53–76; PULSE 71–96; RESP 15–22; TEMP 36.2–37; O2SAT 94–98
[2020-02-13] MEDS: IPRATROPIUM BR 0.02% INH SOLN 0.5 MG/2.5 ML VIAL INHALATION ×7 (00:06→23:47)
[2020-02-13 05:12] LABS: Basophils Absolute Auto 0.1 K/mm3 (0.0-0.1); Basophils Percent Auto 0.6 % (0.2-1.2); Eosinophils Absolute Auto 0.7 K/mm3 (0-0.3); Hematocrit 31.6 % (42.0-52.0); Hemoglobin 10.1 g/dL (14.0-18.0); Immature Granulocyte Absolute 0.45 K/mm3 (0.00-0.031); Immature Granulocyte Percent A 4.2 % (0-0.5); Immature Platelet Fraction Pct 2.5 % (0.9-11.2); Lymphocytes Absolute Auto 1.44 K/mm3 (0.9-3.2); Lymphocytes Percent Auto 13.3 % (18.3-44.2); Mean Corpuscular Hemoglobin 26.4 pg (26-34); Mean Corpuscular Volume 82.7 fl (80-100); Mean Platelet Volume 10.2 fl (7.4-10.4); Monocytes Percent Auto 9.2 % (2.6-8.5); Neutrophils Absolute Auto 7.2 K/mm3 (1.3-6.7); Neutrophils Percent Auto 66.7 % (45.5-73.1); Platelet Count Result 188 k/mm3 (150-375); Red Blood Count 3.82 M/mm3 (4.6-6.20); Red Cell Distribution Width 14.5 % (11.5-14.5); White Blood Count 10.8 K/mm3 (4.5-10.0)
[2020-02-13 05:25] LABS: Alanine Aminotransferase 46 U/L (4-50); Albumin Level 2.7 g/dL (3.5-5.1); Alkaline Phosphatase 64 U/L (38-126); Aspartate Amino Transferase 32 U/L (17-59); Bilirubin,Total 0.3 mg/dL (0.2-1.3); Blood Urea Nitrogen 13 mg/dL (9-20); Carbon Dioxide 21 mmol/L (22-30); Chloride 108 mmol/L (98-107); Estimated CRCL calculation 80 ml/min; Estimated Glomerular Filt Rate > 60; Glucose 117 mg/dL (75-110); Magnesium 1.9 mg/dL (1.6-2.3); Potassium 3.9 mmol/L (3.4-5.0); Sodium 134 mmol/L (137-145)
[2020-02-13] MEDS: SODIUM CHLORIDE 0.9% IV 1,000 ML 60 ML IV CONT ×2 (05:27→20:50)
[2020-02-13] MEDS: TRAMADOL HCL 50 MG TABLET PO ×3 (05:28→20:52)
[2020-02-13] MEDS: BUDESONIDE RESPULE NEB 0.5 MG/2 ML AMP INHALATION ×2 (08:15→19:39)
[2020-02-13 08:21] LABS: Glucose Point of Care 110 (65-105)
--- NOTE | 2020-02-13 08:21 | ECG_ITS ---
Measurements Intervals [place] Rate: 70 P: 76 [place]: 204 QRS: -35 QRSD: 110 T: 47 QT: 402 QTc: 436 Interpretive Statements SINUS RHYTHM LEFT AXIS DEVIATION INTRAVENTRICULAR CONDUCTION DELAY BASELINE ARTIFACT- I, II, III BORDERLINE ECG Electronically Signed On 02-13-2020 8:53:24 CDT by Mynor Rey D.O.
[2020-02-13] MEDS: ENOXAPARIN 40 MG/0.4 ML SYRINGE SUB-Q (09:06)
[2020-02-13] MEDS: LIDOCAINE 5% PATCH 1 PATCH TRANSDERM (09:07)
[2020-02-13] MEDS: PANTOPRAZOLE 40 MG TABLET PO (09:08)
[2020-02-13] MEDS: polyethylene glycoL 3350 17 GM POWD.PACK PO (09:08)
[2020-02-13] MEDS: ASCORBIC ACID 500 MG TABLET PO ×2 (09:08→20:51)
[2020-02-13] MEDS: ASPIRIN 81 MG ENTERIC TABLET PO (09:08)
[2020-02-13] MEDS: AMLODIPINE BESYLATE 5 MG TABLET 10 MG PO (09:08)
[2020-02-13] MEDS: FERROUS SULFATE 324 MG TABLET PO ×2 (09:08→16:48)
[2020-02-13] MEDS: TOPIRAMATE 25 MG TABLET 50 MG PO ×2 (09:08→20:52)
[2020-02-13] MEDS: DULOXETINE HCL 30 MG CAPSULE.DR PO ×2 (09:09→20:53)
[2020-02-13] MEDS: MEMANTINE 10 MG TABLET PO ×2 (09:09→20:54)
[2020-02-13] MEDS: CHOLECALCIFEROL 1,000 UNIT TABLET 1000 UNITS PO (09:09)
[2020-02-13] MEDS: DOCUSATE SODIUM 100 MG CAPSULE PO ×2 (09:09→20:51)
[2020-02-13] MEDS: carvediloL 12.5 MG TABLET PO ×2 (09:09→20:52)
[2020-02-13 09:22] LABS: Troponin I < 0.012 ng/mL (0.000-0.034)
--- NOTE | 2020-02-13 10:21 | PM.IMPN ---
Progress Note: A&P Assessment and Plan (1) COPD (chronic obstructive pulmonary disease): Qualifiers: COPD type: COPD with acute exacerbation Qualified Code(s): J44.1 - Chronic obstructive pulmonary disease with (acute) exacerbation Code(s): J44.9 - Chronic obstructive pulmonary disease, unspecified Status: Acute Assessment and Plan: The pt has wheezing and tachypnea despite his current therapy for COPD. Will give 40 mL IV solu-medrol today and start PO prednisone tomorrow with taper once appropriate and monitor glycemic control closely Continue scheduled nebulizers Continue budesonide Continue montelukast (2) Acute suppurative parotitis: Code(s): K11.21 - Acute sialoadenitis Status: Acute Assessment and Plan: The pt is being treated for acute suppurative parotitis with IV vancomycin. Dr. Villarreal with ID is on board. He continues to improve. Dr. Villarreal is on board and has recommended IV vancomycin for 14 days. Vancomycin was initiated 02/05. Recommendations are greatly appreciated. Will continue gentle IV fluids since the patient's PO fluid intake is low. Pt will need bedside swallow eval today as he is requesting regular liquids Continue warm compresses and gentle massage Continue frequent suctioning as needed Continue saliva substitute and sour drinks (3) Severe sepsis: Code(s): A41.9 - Sepsis, unspecified organism; R65.20 - Severe sepsis without septic shock Status: Resolved Assessment and Plan: At presentation, the pt had fever, tachycardia, and leukocytosis with parotitis suspected as the source. His lactic acid was WNL. Blood cultures are final and reveal no growth. He is afebrile. WBC is trending down. Continue IV antibiotics Continue to monitor WBC (4) Hypertension: Qualifiers: Hypertension type: essential hypertension Qualified Code(s): I10 - Essential (primary) hypertension Code(s): I10 - Essential (primary) hypertension Status: Acute Assessment and Plan: Blood pressures were reviewed and are elevated at target on his home antihypertensive regimen. Continue carvedilol Continue amlodpine Continue IV hydralazine PRN Continue to monitor (5) Insulin dependent type 2 diabetes mellitus: Code(s): E11.9 - Type 2 diabetes mellitus without complications; Z79.4 - rn long term care (current) use of insulin Status: Acute Assessment and Plan: Blood sugars were reviewed and acceptable. FBS is 110. Continue lantus 25 units Continue SSI ACHS Continue hypoglycemic protocol Continue to monitor (6) Obstructive sleep apnea: Code(s): G47.33 - Obstructive sleep apnea (adult) (pediatric) Status: Chronic Assessment and Plan: CPAP titrated to home settings (7) Congestive heart failure: Code(s): I50.9 - Heart failure, unspecified Status: Chronic Assessment and Plan: The pt has a hx of CHF. He is not in acute exacerbation. Echo was repeated and revealed EF of 60-65% with grade I diastolic dysfunction. He also has moderate aortic valve stenosis with peak velocity of 274.00 cm/s, mean gradient of 13 mmHg, and aortic valve area of 1.44 cm2. Continue to monitor volume status Subjective Date/time seen: 02/13/20 10:21 Interval history: Mr. Castellano is seen and examined at bedside in follow-up for treatment of acute suppurative parotitis. He reported chest discomfort this AM to nursing staff. I came to evaluate him and stated it was at the lower left ribcage. It was tender to palpation. He reports SOB and has been coughing up more phlegm since starting chest physiotherapy. He denies nausea, vomiting, and abdominal pain. He had a BM yesterday. He is tolerating his diet well. He feels like his left facial pain and swelling are improving. Review of Systems Review of Systems: All systems reviewed & are unremarkable except as noted in
--- NOTE | 2020-02-13 10:23 | PCNFU ---
Nutrition Follow-Up Complete: Inadequate oral intake related to inability to safely swallow as evidenced by NPO diet, MICRO PHOTOGRAPHER recommendation for NPO. Goal: Patient to meet estimated nutritional needs. progressing towards goal. Pt current nutrition is Pureed, Level 4 with Mod Thick, Level 3. Nutrition recommendation: Agree Last recorded weight is 112.3 kg. Bowel Motility:+BM reported 02/11. Labs Reviewed:Glu 117,Na 134,Hct 31.6,Hgb 10.1 Meds Noted:Vanco,Novolog,Levemir,Protonix Additional Notes: Spoke with nursing this morning due to COVID 19 precautions. Patient remains on Vancomyacin for 14 days. Oral intakes has been 30-50% of most meals. Recommend a diet supplement Ensure Enlive BID providing an additional 350 kcals and 20 gms protein. Food and Nutrition is aware the supplement will need to be thickened. Monitoring: Follow up every 3 days.
[2020-02-13] MEDS: ALTEPLASE 2 MG VIAL (CATHFLO) IV PUSH ×2 (10:50→13:01)
[2020-02-13] MEDS: WATER, STERILE FOR INJECTION 10 ML VIAL XX (10:55)
[2020-02-13 11:23] LABS: Glucose Point of Care 164 (65-105)
--- NOTE | 2020-02-13 11:49 | WPDINFPN2 ---
Progress Note: A&P Assessment and Plan (1) Acute suppurative parotitis: Code(s): K11.21 - Acute sialoadenitis Status: Acute Assessment and Plan: 1. Facial swelling due to parotiditis, exam with slow improvement. MRSA is most common. BCs ng final 2. DM 3. Dementia 4. Swallowing dysfunction 5. Leukocytosis due to #1, nearly resolved REC vanc #8 / 14 days, continue. PICC in place. Target trough 10-15, PharmD dosing. Subjective Date/time seen: 02/13/20 11:49 Interval history: no longer in need of a sitter. He offers no complaints Exam Narrative: Exam Narrative: afebrile Const: General: no acute distress HENMT: Other: edema left parotid about the same. No erythema no tenderness Eyes: General: appearance normal, both eyes and all related structures Resp: Effort & Inspection: normal respiratory effort Auscultation: clear to auscultation bilaterally Cardio: Rate: regular rate Rhythm: regular rhythm Heart sounds: no gallops and no murmurs GI: Inspection: non-distended GI Palp: Yes Soft to palpation and No Tenderness to palpation present (GI) Objective Data Vital Signs Vital Signs: Vital Signs - 24 hr 02/12/20 11:51 02/12/20 14:00 02/12/20 16:24 Temperature 36.3 C L Pulse Rate 68 70 77 Respiratory Rate 22 H 16 18 Blood Pressure 125/52 L Pulse Oximetry 98 92 02/12/20 16:40 02/12/20 18:00 02/12/20 19:36 Temperature 36.6 C Pulse Rate 79 80 77 Respiratory Rate 18 16 18 Blood Pressure 139/53 L Pulse Oximetry 93 93 02/12/20 19:47 02/12/20 19:52 02/12/20 20:44 Temperature Pulse Rate 75 80 70 Respiratory Rate 18 14 Blood Pressure Pulse Oximetry 95 02/12/20 22:00 02/13/20 00:06 02/13/20 00:15 Temperature 36.7 C Pulse Rate 70 77 75 Respiratory Rate 20 16 16 Blood Pressure 144/62 H Pulse Oximetry 95 94 02/13/20 02:00 02/13/20 04:00 02/13/20 04:09 Temperature 36.6 C Pulse Rate 82 79 77 Respiratory Rate 22 H 18 18 Blood Pressure 151/67 H Pulse Oximetry 96 95 02/13/20 05:51 02/13/20 08:16 02/13/20 08:17 Temperature 36.4 C L 37.0 C Pulse Rate 73 72 73 Respiratory Rate 22 H 22 H Blood Pressure 148/60 H 150/59 H Pulse Oximetry 97 96 95 02/13/20 08:36 02/13/20 09:09 Temperature Pulse Rate 96 74 Respiratory Rate 20 Blood Pressure Pulse Oximetry Intake/Output Intake/Output: Intake & Output 02/10/20 02/11/20 02/12/20 02/13/20 23:59 23:59 23:59 23:59 Intake Total 1818 1542 3376 752 Balance 1818 1542 3376 752 Meds/Results Medications: Active Medications Generic Name Dose Route Start Last Admin Trade Name Freq PRN Reason Stop Dose Admin Acetaminophen 650 mg 02/10/20 17:13 02/12/20 18:15 Tylenol Tablet PO 650 mg Q4H PRN Administration Fever or Mild pain 1-3 Albuterol 2.5 mg 02/10/20 08:36 Albuterol Sulf Neb 2.5mg/0.5ml INHALATION Q6HRT PRN Shortness Of Breath Or Wheezing Alteplase, Recombinant 2 mg 02/12/20 15:37 02/13/20 10:50 Cathflo Activase IV PUSH 2 mg ONCE PRN Administration Line Occlusion Alteplase, Recombinant 2 mg 02/12/20 16:38 Cathflo Activase IV PUSH ONCE PRN Line Occlusion Alteplase, Recombinant 2 mg 02/13/20 09:02 Cathflo Activase IV PUSH ONCE PRN Line Occlusion Amlodipine Besylate 10 mg 02/11/20 09:00 02/13/20 09:08 Norvasc PO 10 mg DAILY JOSIAH Administration Ascorbic Acid 500 mg 02/10/20 21:00 02/13/20 09:08 Vitamin C PO 500 mg Q12HR JOSIAH Administration Aspirin 81 mg 02/11/20 09:00 02/13/20 09:08 Aspirin Ec PO 81 mg DAILY JOSIAH Administration Bisacodyl 5 mg 02/06/20 21:13 Dulcolax Tab PO DAILY PRN Constipation Budesonide 0.5 mg 02/07/20 08:00 02/13/20 08:15 Pulmicort Respule Neb INHALATION 0.5 mg Q12HRT JOSIAH Administration Carvedilol 12.5 mg 02/10/20 21:00 02/13/20 09:09 Coreg PO 12.5 mg Q12HR JOSIAH Administration Dextrose 12.5 gm 04
[2020-02-13] MEDS: ACETAMINOPHEN 325 MG TABLET 650 MG PO (12:09)
[2020-02-13] MEDS: methylPREDNISolone SOD SUCC 40 MG VIAL IV PUSH (12:47)
--- NOTE | 2020-02-13 15:15 | PC.NURSE ---
Notified Aury Cortez RN difficult to flush PICC line and no blood return after cathflo administration x 2. Per LYNNETTE Jeffers she will come to floor to assess PICC line.
--- NOTE | 2020-02-13 16:15 | PCSTNOTE ---
Please refer to the Modified Barium Swallow Evaluation in the EMR.
[2020-02-13 16:35] LABS: Glucose Point of Care 224 (65-105)
[2020-02-13] MEDS: INSULIN ASPART (*BKC) 100 UNITS/ML SUB-Q (16:48)
[2020-02-13] MEDS: MONTELUKAST SODIUM 10 MG TABLET PO (20:51)
[2020-02-13] MEDS: INSULIN DETEMIR 100 UNITS/ML 25 UNITS SUB-Q (20:54)
[2020-02-13] MEDS: TRAZODONE HCL 50 MG TABLET PO (20:54)
[2020-02-13 21:13] LABS: Glucose Point of Care 230 (65-105)
[2020-02-14] VITALS (19 sets, daily range): BP systolic 107–162; BP diastolic 54–85; PULSE 63–78; RESP 16–24; TEMP 36.2–36.6; O2SAT 95–99
[2020-02-14] MEDS: IPRATROPIUM BR 0.02% INH SOLN 0.5 MG/2.5 ML VIAL INHALATION ×4 (04:05→19:17)
[2020-02-14 05:19] LABS: Basophils Percent Auto 0.3 % (0.2-1.2); Hematocrit 29.9 % (42.0-52.0); Hemoglobin 9.4 g/dL (14.0-18.0); Immature Granulocyte Absolute 0.31 K/mm3 (0.00-0.031); Lymphocytes Absolute Auto 0.64 K/mm3 (0.9-3.2); Lymphocytes Percent Auto 10.3 % (18.3-44.2); Mean Corpuscular HGB Conc 31.4 g/dl (32-36); Mean Corpuscular Hemoglobin 26.5 pg (26-34); Mean Corpuscular Volume 84.2 fl (80-100); Mean Platelet Volume 9.6 fl (7.4-10.4); Monocytes Absolute Auto 0.3 K/mm3 (0.1-0.6); Neutrophils Percent Auto 80.4 % (45.5-73.1); Platelet Count Result 196 k/mm3 (150-375); Red Blood Count 3.55 M/mm3 (4.6-6.20); Red Cell Distribution Width 13.9 % (11.5-14.5); White Blood Count 6.2 K/mm3 (4.5-10.0)
[2020-02-14 05:48] LABS: Alanine Aminotransferase 38 U/L (4-50); Albumin Level 2.7 g/dL (3.5-5.1); Alkaline Phosphatase 66 U/L (38-126); Aspartate Amino Transferase 23 U/L (17-59); Bilirubin,Total 0.2 mg/dL (0.2-1.3); Blood Urea Nitrogen 11 mg/dL (9-20); Calcium 8.1 mg/dL (8.4-10.2); Carbon Dioxide 23 mmol/L (22-30); Chloride 109 mmol/L (98-107); Estimated CRCL calculation 80 ml/min; Estimated Glomerular Filt Rate > 60; Glucose 191 mg/dL (75-110); Sodium 136 mmol/L (137-145)
[2020-02-14] MEDS: TRAMADOL HCL 50 MG TABLET PO ×3 (06:16→20:58)
[2020-02-14 07:44] LABS: Glucose Point of Care 159 (65-105)
[2020-02-14] MEDS: ENOXAPARIN 40 MG/0.4 ML SYRINGE SUB-Q (08:34)
[2020-02-14] MEDS: ASCORBIC ACID 500 MG TABLET PO ×2 (08:34→20:57)
[2020-02-14] MEDS: polyethylene glycoL 3350 17 GM POWD.PACK PO (08:34)
[2020-02-14] MEDS: TOPIRAMATE 25 MG TABLET 50 MG PO ×2 (08:34→20:56)
[2020-02-14] MEDS: LIDOCAINE 5% PATCH 1 PATCH TRANSDERM (08:34)
[2020-02-14] MEDS: ASPIRIN 81 MG ENTERIC TABLET PO (08:34)
[2020-02-14] MEDS: AMLODIPINE BESYLATE 5 MG TABLET 10 MG PO (08:35)
[2020-02-14] MEDS: predniSONE 20 MG TABLET 40 MG PO (08:35)
[2020-02-14] MEDS: DULOXETINE HCL 30 MG CAPSULE.DR PO ×2 (08:35→20:57)
[2020-02-14] MEDS: DOCUSATE SODIUM 100 MG CAPSULE PO ×2 (08:35→20:57)
[2020-02-14] MEDS: ESCITALOPRAM OXALATE 5 MG TABLET PO (08:35)
[2020-02-14] MEDS: MEMANTINE 10 MG TABLET PO ×2 (08:35→20:57)
[2020-02-14] MEDS: CHOLECALCIFEROL 1,000 UNIT TABLET 1000 UNITS PO (08:36)
[2020-02-14] MEDS: carvediloL 12.5 MG TABLET PO ×2 (08:36→20:57)
[2020-02-14] MEDS: PANTOPRAZOLE 40 MG TABLET PO (08:36)
[2020-02-14] MEDS: FERROUS SULFATE 324 MG TABLET PO ×2 (08:36→16:05)
[2020-02-14] MEDS: BUDESONIDE RESPULE NEB 0.5 MG/2 ML AMP INHALATION ×2 (08:36→19:16)
[2020-02-14] MEDS: ACETAMINOPHEN 325 MG TABLET 650 MG PO ×2 (08:49→16:04)
--- NOTE | 2020-02-14 10:45 | PM.IMPN ---
Progress Note: A&P Assessment and Plan (1) Acute suppurative parotitis: Code(s): K11.21 - Acute sialoadenitis Status: Acute Assessment and Plan: The pt is being treated for acute suppurative parotitis with IV vancomycin. Dr. Villarreal with ID is on board. He presented with significant facial swelling and pain which has improved although still experiencing discomfort and edema. He was evaluated by REHEATER HELPER who recommended thickened liquids diet. Dr. Villarreal is on board and has recommended IV vancomycin for 14 days. Vancomycin was initiated 02/05. Recommendations are greatly appreciated. Will continue gentle IV fluids since the patient's PO fluid intake is low. Continue warm compresses and gentle massage Continue frequent suctioning as needed Continue saliva substitute and sour drinks I scheduled follow up appointment with Dr. Faulkner ENT on 02/20/20 (2) COPD (chronic obstructive pulmonary disease): Qualifiers: COPD type: COPD with acute exacerbation Qualified Code(s): J44.1 - Chronic obstructive pulmonary disease with (acute) exacerbation Code(s): J44.9 - Chronic obstructive pulmonary disease, unspecified Status: Acute Assessment and Plan: Appeared to have COPD exacerbation and became tachypneic and wheezing despite his current therapy for COPD. Somewhat improved today although still SOB. He is on 2L of O2 and at 98%. Begin PO prednisone with taper. Will need to monitor glycemic control closely Continue scheduled nebulizers Continue budesonide Continue montelukast Wean O2 to goal 90% (3) Severe sepsis: Code(s): A41.9 - Sepsis, unspecified organism; R65.20 - Severe sepsis without septic shock Status: Resolved Assessment and Plan: At presentation, the pt had fever, tachycardia, and leukocytosis with parotitis suspected as the source. His lactic acid was WNL. Blood cultures are final and reveal no growth. He is afebrile. WBC is trending down. Continue IV antibiotics Continue to monitor WBC (4) Hypertension: Qualifiers: Hypertension type: essential hypertension Qualified Code(s): I10 - Essential (primary) hypertension Code(s): I10 - Essential (primary) hypertension Status: Acute Assessment and Plan: Blood pressures evaluated today and stable at 162/85 prior to administration of antihypertensives. Prior BP have been well controlled with only mild elevation. Continue carvedilol Continue amlodpine Continue IV hydralazine PRN Continue to monitor (5) Dysuria: Code(s): R30.0 - Dysuria Status: Acute Assessment and Plan: Patient endorsed dysuria today. Prior UA on 02/06/20 suspicious for UTI but also with many squamous epithelial cells. Culture revealed E. coli but thought to be contaminant so no further treatment initiated. Repeat UA with reflex culture. Discussed with Dr. Villarreal. (6) Insulin dependent type 2 diabetes mellitus: Code(s): E11.9 - Type 2 diabetes mellitus without complications; Z79.4 - halfway (current) use of insulin Status: Acute Assessment and Plan: Blood sugars evaluated today and stable at 159. Continue lantus 25 units Continue SSI ACHS Continue hypoglycemic protocol Continue to monitor closely given addition of Prednisone. Expect some increase in blood sugars but plan to taper prednisone and monitor glycemic control closely. (7) Obstructive sleep apnea: Code(s): G47.33 - Obstructive sleep apnea (adult) (pediatric) Status: Chronic Assessment and Plan: Stable. CPAP titrated to home settings (8) Congestive heart failure: Code(s): I50.9 - Heart failure, unspecified Status: Chronic Assessment and Plan: The pt has a hx of CHF. He is not in acute exacerbation. Echo was repeated and revealed EF of 60-65% with grade I diastolic dysfunction. He also has moderate aortic valve stenosis with pea
[2020-02-14 11:53] LABS: Glucose Point of Care 323 (65-105)
[2020-02-14] MEDS: INSULIN ASPART (*BKC) 100 UNITS/ML SUB-Q ×2 (12:36→17:16)
[2020-02-14] MEDS: SODIUM CHLORIDE 0.9% IV 1,000 ML 60 ML IV CONT (14:14)
[2020-02-14 17:30] LABS: Glucose Point of Care 266 (65-105)
[2020-02-14] MEDS: MONTELUKAST SODIUM 10 MG TABLET PO (20:57)
[2020-02-14] MEDS: TRAZODONE HCL 50 MG TABLET PO (20:59)
[2020-02-14] MEDS: INSULIN DETEMIR 100 UNITS/ML 25 UNITS SUB-Q (20:59)
[2020-02-14 21:10] LABS: Glucose Point of Care 262 (65-105)
[2020-02-15] VITALS (14 sets, daily range): BP systolic 134–158; BP diastolic 61–82; PULSE 63–92; RESP 16–24; TEMP 36–36.5; O2SAT 94–99
[2020-02-15] MEDS: IPRATROPIUM BR 0.02% INH SOLN 0.5 MG/2.5 ML VIAL INHALATION ×4 (01:37→11:38)
[2020-02-15] MEDS: TRAMADOL HCL 50 MG TABLET PO (05:43)
[2020-02-15] MEDS: SODIUM CHLORIDE 0.9% IV 1,000 ML 60 ML IV CONT (05:43)
[2020-02-15 06:17] LABS: Hematocrit 29.6 % (42.0-52.0); Hemoglobin 9.3 g/dL (14.0-18.0); Mean Corpuscular HGB Conc 31.4 g/dl (32-36); Mean Corpuscular Hemoglobin 26.6 pg (26-34); Mean Corpuscular Volume 84.6 fl (80-100); Mean Platelet Volume 9.7 fl (7.4-10.4); Platelet Count Result 281 k/mm3 (150-375); Red Cell Distribution Width 14.3 % (11.5-14.5); White Blood Count 10.1 K/mm3 (4.5-10.0)
[2020-02-15 06:31] LABS: Blood Urea Nitrogen 11 mg/dL (9-20); Calcium 8.2 mg/dL (8.4-10.2); Carbon Dioxide 24 mmol/L (22-30); Chloride 109 mmol/L (98-107); Estimated CRCL calculation 82 ml/min; Estimated Glomerular Filt Rate > 60; Glucose 167 mg/dL (75-110); Potassium 3.5 mmol/L (3.4-5.0); Sodium 138 mmol/L (137-145)
[2020-02-15 07:57] LABS: Glucose Point of Care 140 (65-105)
[2020-02-15] MEDS: LIDOCAINE 5% PATCH 1 PATCH TRANSDERM (08:01)
[2020-02-15] MEDS: FERROUS SULFATE 324 MG TABLET PO (08:22)
[2020-02-15] MEDS: polyethylene glycoL 3350 17 GM POWD.PACK PO (08:22)
[2020-02-15] MEDS: DULOXETINE HCL 30 MG CAPSULE.DR PO (08:22)
[2020-02-15] MEDS: ASPIRIN 81 MG ENTERIC TABLET PO (08:22)
[2020-02-15] MEDS: ENOXAPARIN 40 MG/0.4 ML SYRINGE SUB-Q (08:22)
[2020-02-15] MEDS: predniSONE 20 MG TABLET 40 MG PO (08:22)
[2020-02-15] MEDS: TOPIRAMATE 25 MG TABLET 50 MG PO (08:23)
[2020-02-15] MEDS: CHOLECALCIFEROL 1,000 UNIT TABLET 1000 UNITS PO (08:23)
[2020-02-15] MEDS: carvediloL 12.5 MG TABLET PO (08:23)
[2020-02-15] MEDS: DOCUSATE SODIUM 100 MG CAPSULE PO (08:23)
[2020-02-15] MEDS: AMLODIPINE BESYLATE 5 MG TABLET 10 MG PO (08:23)
[2020-02-15] MEDS: MEMANTINE 10 MG TABLET PO (08:23)
[2020-02-15] MEDS: ESCITALOPRAM OXALATE 5 MG TABLET PO (08:23)
[2020-02-15] MEDS: ASCORBIC ACID 500 MG TABLET PO (08:23)
[2020-02-15] MEDS: PANTOPRAZOLE 40 MG TABLET PO (08:23)
[2020-02-15] MEDS: BUDESONIDE RESPULE NEB 0.5 MG/2 ML AMP INHALATION (08:45)
[2020-02-15 11:41] LABS: Glucose Point of Care 199 (65-105)
[2020-02-15] MEDS: ACETAMINOPHEN 325 MG TABLET 650 MG PO (12:16)
--- NOTE | 2020-02-15 12:32 | WPDINFPN2 ---
Progress Note: A&P Assessment and Plan (1) Acute suppurative parotitis: Code(s): K11.21 - Acute sialoadenitis Status: Acute Assessment and Plan: 1. Facial swelling due to parotiditis, exam with slow improvement. MRSA is most common. BCs ng final 2. DM 3. Dementia 4. Swallowing dysfunction, psersists 5. Leukocytosis due to #1, minimal rebound since normal value yesterday REC vanc #10 / 14 days, continue. PICC in place. Target trough 10-15, PharmD dosing. Subjective Date/time seen: 02/15/20 12:32 Interval history: malaise, cannot specify anything more specific Exam Narrative: Exam Narrative: afebrile Const: General: no acute distress HENMT: Other: swelling slightly better in interim Eyes: General: appearance normal, both eyes and all related structures Resp: Effort & Inspection: normal respiratory effort Auscultation: clear to auscultation bilaterally Cardio: Rate: regular rate Rhythm: regular rhythm Heart sounds: no gallops and no murmurs GI: Inspection: non-distended GI Palp: Yes Soft to palpation and No Tenderness to palpation present (GI) Objective Data Vital Signs Vital Signs: Vital Signs - 24 hr 02/14/20 14:00 02/14/20 15:26 02/14/20 15:37 Temperature 36.5 C Pulse Rate 70 68 72 Respiratory Rate 22 H 20 20 Blood Pressure 131/79 Pulse Oximetry 99 02/14/20 18:00 02/14/20 19:17 02/14/20 19:19 Temperature 36.2 C L Pulse Rate 71 70 Respiratory Rate 24 H 20 Blood Pressure 144/54 H Pulse Oximetry 99 97 02/14/20 19:38 02/14/20 20:57 02/14/20 21:54 Temperature 36.4 C L Pulse Rate 71 74 71 Respiratory Rate 20 20 Blood Pressure 124/61 Pulse Oximetry 98 02/14/20 22:00 02/15/20 01:39 02/15/20 01:43 Temperature Pulse Rate 71 67 67 Respiratory Rate 16 16 16 Blood Pressure Pulse Oximetry 97 96 02/15/20 01:53 02/15/20 02:00 02/15/20 05:16 Temperature 36.0 C L Pulse Rate 66 63 69 Respiratory Rate 16 20 16 Blood Pressure 144/61 H Pulse Oximetry 97 95 02/15/20 05:17 02/15/20 05:28 02/15/20 05:46 Temperature 36.1 C L Pulse Rate 69 67 65 Respiratory Rate 16 16 20 Blood Pressure 141/64 H Pulse Oximetry 99 02/15/20 08:23 02/15/20 08:49 02/15/20 08:58 Temperature Pulse Rate 92 74 71 Respiratory Rate 18 18 Blood Pressure Pulse Oximetry 94 02/15/20 10:00 02/15/20 11:38 Temperature 36.2 C L Pulse Rate 72 69 Respiratory Rate 24 H 18 Blood Pressure 134/66 Pulse Oximetry 98 Intake/Output Intake/Output: Intake & Output 02/12/20 02/13/20 02/14/20 02/15/20 23:59 23:59 23:59 23:59 Intake Total 3376 2742 3043 1227 Balance 3376 2742 3043 1227 Meds/Results Medications: Active Medications Generic Name Dose Route Start Last Admin Trade Name Freq PRN Reason Stop Dose Admin Acetaminophen 650 mg 02/10/20 17:13 02/15/20 12:16 Tylenol Tablet PO 650 mg Q4H PRN Administration Fever or Mild pain 1-3 Albuterol 2.5 mg 02/10/20 08:36 Albuterol Sulf Neb 2.5mg/0.5ml INHALATION Q6HRT PRN Shortness Of Breath Or Wheezing Alteplase, Recombinant 2 mg 02/12/20 15:37 02/13/20 13:01 Cathflo Activase IV PUSH 2 mg ONCE PRN Administration Line Occlusion Alteplase, Recombinant 2 mg 02/12/20 16:38 Cathflo Activase IV PUSH ONCE PRN Line Occlusion Alteplase, Recombinant 2 mg 02/13/20 09:02 Cathflo Activase IV PUSH ONCE PRN Line Occlusion Amlodipine Besylate 10 mg 02/11/20 09:00 02/15/20 08:23 Norvasc PO 10 mg DAILY JOSIAH Administration Ascorbic Acid 500 mg 02/10/20 21:00 02/15/20 08:23 Vitamin C PO 500 mg Q12HR JOSIAH Administration Aspirin 81 mg 02/11/20 09:00 02/15/20 08:22 Aspirin Ec PO 81 mg DAILY JOSIAH Administration Bisacodyl 5 mg 02/06/20 21:13 Dulcolax Tab PO DAILY PRN Constipation Budesonide 0.5 mg 02/07/20 08:00 02/15/20 08:45 Pulmicort Respule Neb INHALATION 0.5 mg
--- NOTE | 2020-02-15 14:21 | PCDIET ---
Nutrition Follow-Up Complete: Nutrition Diagnosis: Inadequate oral intake related to inability to safely swallow as evidenced by NPO diet, HOME HEALTH CLINICAL LIAISON recommendation for NPO. Nutrition Goal: Patient to meet estimated nutritional needs. Goal met. Patient consuming 75-100% of meals over the past 2 days. Attempted to phone patient x 2 due to COVID-19 precautions with no answer. Spoke with nurse aid, Belen, who reports patient only ate about half of lunch today and did not receive supplement. Unable to obtain whether patient consistently taking Ensure Enlive. Would recommend continuing until intakes consistently >75%. Nursing to notify dietary if patient refuses supplement. Last recorded weight is 117.39 kg which is increased from last review. +I/O Bowel Motility: +BM on 02/13/20. Labs Reviewed: Glu (199) Meds Noted: Albuterol, Vitamin C, Novolog, Protonix, Colace, Ferrous Sulfate, Levemir, Miralax, Prednisone, Vancomycin, Vitamin D, NS at 60mL/hr Additional Notes: No documented skin breakdown. Recommend regular diet until intakes >75%. Would then discontinue Ensure Enlive and add carbohydrate control, if needed. Would also stop IV fluids due to improved oral intake. Nutrition Monitoring and Evaluation: Follow up every 5 days.
--- NOTE | 2020-02-16 08:45 | PM.DS ---
DS: Diagnosis Admitting Diagnosis Admitting Diagnosis: Sepsis, unspecified organism Discharge Diagnosis (1) Acute suppurative parotitis: Code(s): K11.21 - Acute sialoadenitis Status: Acute (2) COPD (chronic obstructive pulmonary disease): Qualifiers: COPD type: COPD with acute exacerbation Qualified Code(s): J44.1 - Chronic obstructive pulmonary disease with (acute) exacerbation Code(s): J44.9 - Chronic obstructive pulmonary disease, unspecified Status: Acute (3) Severe sepsis: Code(s): A41.9 - Sepsis, unspecified organism; R65.20 - Severe sepsis without septic shock Status: Resolved (4) Hypertension: Qualifiers: Hypertension type: essential hypertension Qualified Code(s): I10 - Essential (primary) hypertension Code(s): I10 - Essential (primary) hypertension Status: Acute (5) Dysuria: Code(s): R30.0 - Dysuria Status: Acute (6) Insulin dependent type 2 diabetes mellitus: Code(s): E11.9 - Type 2 diabetes mellitus without complications; Z79.4 - termite treater (current) use of insulin Status: Acute (7) Obstructive sleep apnea: Code(s): G47.33 - Obstructive sleep apnea (adult) (pediatric) Status: Chronic (8) Congestive heart failure: Code(s): I50.9 - Heart failure, unspecified Status: Chronic (9) Phimosis: Code(s): N47.1 - Phimosis Status: Acute DS: Summary Hospital Course Reason for hospitalization: Left facial swelling Hospital Course: Date of admission: 02/06/20 Date of discharge: 02/15/20 Joshua Castellano is an 84 year old male with a PMH significant for dementia, stroke, CKD, NAIN, IDDM, CHF, aortic stenosis, and HTN who presented to the ED on 02/06/20 from [facility] for fever and left sided facial swelling. He was minimally responsive at presentation and met criteria for sepsis evident by vitals. He presented with T 101.7F, HR 105, WBC 31.2, Glucose 166, Lactic acid 1.3, CRP 31.5. Facial CT revealed extensive dental disease and left face soft tissue swelling consistent with cellulititis possibly due to dental disease or parotiditis. His condition was discussed with his daughter (BRAD) who opted not to transfer for surgical consult and proceed with medical management for parotiditis. Given his ceftriaxone allergy, he was initiated on Clindamycin and Vancomycin. His level of responsiveness improved but he remained alert to only himself, consistent with his baseline. Dr. Villarreal with infectious disease was consulted and recommended 14 days IV Vancomycin. His parotid gland was draining purulent fluid with massaging and warm compresses, and fluid was routinely suctioned. He was given gentle IV fluids, sour candy and sialogogues. He advanced his diet and was evaluated by speech therapy who recommended minced and moist thickened liquids diet. He will remain on this until ENT follow up with Dr. Faulkner on 02/20/20. His glandular swelling decreased and became softer. He was able to swallow and manage his secretions. There was no evidence of abscess. His white count trended down to normal range and he remained afebrile. He will continue IV Vancomycin infusions via PICC line for 4 days managed by staff at [facility]. He did seem to have an exacerbation of his COPD with tachypnea and wheezing and began requiring supplemental oxygen. He was given a one time dose of solumedrol and then started on prednisone taper which he will continue for 7 additional days. Prednisone did increase his white count modestly but blood sugars remained stable and will continue to be monitored by [facility] staff. His oxygenation improved and no longer required O2. He was given nebulizers and continued his home inhalers. At presentation, his UA was suspicious for UTI but also had many squamous epithelial cells, likely representing contamination. Culture revealed E. coli but no additional treatment initiated as it was likely contaminat
== END 2020-02-15 17:28 | DRG 872 ==
LOC: ANHED 16:24 → ANHIMU 16:38 → ANH2MED 02-10 18:21 → ANH3MED 02-16 13:21 → ANHIMU 02-16 13:21
PROVIDERS: Physician Assistant; Admitting Provider Family Medicine; Emergency Provider General Practice; PCP Family Medicine; Visit Provider Physician Assistant
DX: A41.9 Sepsis, unspecified organism (principal); L03.211 Cellulitis of face; I13.0 Hypertensive heart and chronic kidney disease with heart failure and stage 1 through stage 4 chronic kidney disease, or unspecified chronic kidney disease; I50.32 Chronic diastolic (congestive) heart failure; I47.2 Ventricular tachycardia; J44.1 Chronic obstructive pulmonary disease with (acute) exacerbation; K11.21 Acute sialoadenitis; R65.20 Severe sepsis without septic shock; N18.3 Chronic kidney disease, stage 3 (moderate); E11.22 Type 2 diabetes mellitus with diabetic chronic kidney disease; Z79.4 Long term (current) use of insulin; G47.33 Obstructive sleep apnea (adult) (pediatric); D63.1 Anemia in chronic kidney disease; F41.8 Other specified anxiety disorders; M19.90 Unspecified osteoarthritis, unspecified site; N40.0 Benign prostatic hyperplasia without lower urinary tract symptoms; J44.9 Chronic obstructive pulmonary disease, unspecified; I25.10 Atherosclerotic heart disease of native coronary artery without angina pectoris; I25.2 Old myocardial infarction; Z95.5 Presence of coronary angioplasty implant and graft; Z86.73 Personal history of transient ischemic attack (TIA), and cerebral infarction without residual deficits; F03.90 Unspecified dementia, unspecified severity, without behavioral disturbance, psychotic disturbance, mood disturbance, and anxiety; I35.0 Nonrheumatic aortic (valve) stenosis; E11.40 Type 2 diabetes mellitus with diabetic neuropathy, unspecified; Z86.718 Personal history of other venous thrombosis and embolism; E78.5 Hyperlipidemia, unspecified; Z86.14 Personal history of Methicillin resistant Staphylococcus aureus infection; Z96.653 Presence of artificial knee joint, bilateral; Z66 Do not resuscitate; Z87.891 Personal history of nicotine dependence; E86.0 Dehydration; I49.3 Ventricular premature depolarization; R13.10 Dysphagia, unspecified; R30.0 Dysuria
CPT/HCPCS: 36415; 36569; 36600; 70450; 70487; 71045; 80048; 80053; 80069; 80202; 81001; 82375; 82805; 83036; 83050; 83605; 83735; 84100; 84132; 84466; 84478; 84484; 85025; 85027; 85055; 85610; 85730; 86140; 87040; 87077; 87086; 87088; 87186; 87804; 92526; 92610; 92611; 93005; 93970; 94640; 94667; 94668; 96365; 96367; 96375; 97162; 97165; 99285; A9270; C1751; C8929; C9113; J0131; J0360; J1650; J1815; J1885; J1956; J2920; J2930; J2997; J3370; J3480; J7030; J7120; J7512; Q9957; Q9967

== ENCOUNTER 2020-03-10 09:27 | Inpatient (IN) | payer MEDICARE, MEDICAID, SELFPAY ==
--- NOTE | ~2020-03-10 | XR_ITS ---
EXAMINATION: XR barium swallow modified EXAM DATE: 03/14/2020 15:39 INDICATION: Dysphagia. TECHNIQUE: Modified barium esophagram was performed by myself to administered fluoroscopy, in conjun ction with speech pathologist who administered barium in varying consistencies as per speech patholog ist documentation. This was recorded on tape. The DAP for this procedure was 1.9 Gycm2. FINDINGS: Oral stage: Adequate function. Pharyngeal phase: Small sinus residual. Laryngeal penetration: Demonstrated. Aspiration: Suspected, but not directly observed. Laryngeal sensitivity: Weak. IMPRESSION: Please refer to speech pathologist findings and specific feeding recommendations. Reviewed, dictated and finalized at location A. IMPRESSION: Please refer to speech pathologist findings and specific feeding re commendations.
--- NOTE | ~2020-03-10 | CT_ITS ---
EXAMINATION: CT chest abdomen pelvis wo con INDICATION: Chest, abdomen, and pelvis TECHNIQUE: Computed tomographic images of the chest, abdomen, and pelvis were obtained without intrav enous contrast. The dose-length product (DLP) was 1617 mGy-cm. Automated exposure control and iterati ve reconstruction technique were employed. COMPARISON: 08/24/2018, 03/10/2020 FINDINGS: CHEST: Respiratory motion artifact limits evaluation of the lungs. There are minimal opacities of keyona g bases. Previously seen right apical opacities persist but have improved. There is a stable 3.2 x 2. 0 cm right lower paratracheal lymph node. There is questionable wall thickening of the midesophagus. The heart size is normal. ABDOMEN/PELVIS: Within the limitations of noncontrast examination, the liver, spleen, pancreas, gallb ladder, and adrenal glands are normal. There is moderate atrophy of the otherwise normal kidneys. The re is calcified atherosclerosis of the aorta and many of the other arteries. No pathologically enlarg ed abdominal or pelvic lymph nodes are identified. There is no free intraperitoneal gas or evidence o f bowel obstruction. Colonic diverticulosis is present without evidence of diverticulitis. There is a moderate volume of stool in the rectum. A small fat-containing umbilical hernia is noted. There are changes of posterior fusion at L4-5. Vertebroplasty change is again seen in a T12 burst fracture. The re is chronic anterior wedging of L1 vertebral body. Severe lumbar spondylosis is unchanged. IMPRESSION: 1. Persistent but improved airspace opacities in the right lung apex and bibasilar airspace opacities , consistent with atelectasis versus pneumonia. 2. Right lower paratracheal lymphadenopathy which could be reactive versus metastatic disease. 3. Possible mild wall thickening of the midesophagus. Correlate for history of dysphagia and consider direct visualization. 4. No CT correlate for epigastric pain. Reviewed, dictated and finalized at location A. IMPRESSION: 1. Persistent but improved airspace opacities in the right lung apex and bibasi lar airspace opacities, consistent with atelectasis versus pneumonia. 2. Right lower paratracheal lymphadenopathy which could be reactive versus meta static disease. 3. Possible mild wall thickening of the midesophagus. Correlate for history of dysphagia and consider direct visualization. 4. No CT correlate for epigastric pain.
--- NOTE | ~2020-03-10 | XR_ITS ---
XR chest 1V portable DATE: 03/11/2020 10:33 INDICATION: Cough. TECHNIQUE: 03/11/2020 portable AP chest at 1031 hours COMPARISON: 02/12/2020 portable AP chest FINDINGS: There are patchy bibasilar infiltrates and/or atelectasis. There is asymmetric increased density in the right apical area which may be due to infiltrate or scar ring; mass density is unlikely considering comparison with 02/12/2020 radiograph. The mid and upper clifford ng zones otherwise appear clear of consolidation. Electrodes overlie the thoracic spinal canal. Vertebroplasty at a lower thoracic level, approximately T12. Diffuse osteopenia. IMPRESSION: Predominantly bilateral basilar and right apical infiltrate and/atelectasis Reviewed, dictated and finalized at location A. IMPRESSION: Predominantly bilateral basilar and right apical infiltrate and/ate lectasis
--- NOTE | ~2020-03-10 | CT_ITS ---
CT soft tissue neck w con DATE: 03/10/2020 11:43 INDICATION: Right neck mass TECHNIQUE: Cross section CT images were obtained through the neck following intravenous administratio n of 75 cc Omnipaque 350 intravenous contrast material. Exam dose: 655.46 mGy-cm total exam DLP. COMPARISON: 12/05/2017 CT cervical spine 04/05/2018 CT brain FINDINGS: There is prominent asymmetric soft tissue swelling of the right parotid gland, with surroun ding soft tissue infiltration of the adipose tissue. Normal left carotid and symmetric normal appearing bilateral submandibular glands. Normal size and homogeneous enhancement of the thyroid gland. No airway compromise is evident. No cervical mass lesion or lymphadenopathy is noted otherwise. There is extensive interstitial infiltrate which may be secondary to interstitial fibrosis or less li kristofer interstitial pneumonitis at the right apical area. There is degenerative change of the cervical spine including particularly prominent degenerative dise ase and retrolisthesis at C3-4, moderate degenerative disc disease and mild retrolisthesis at C5-6. There is likely chronic burst fracture deformity of T3. There is mucoperiosteal thickening of the left frontal sinus, soft tissue thickening of the left ethm oids and mild mucoperiosteal thickening of the left maxillary sinus, left sphenoid sinus and prominen t soft tissue thickening of the right sphenoid sinus. There is mild soft tissue thickening of the lef t mastoid air cells. The right mastoid air cells are normally developed and aerated. Incidental finding of central and cortical cerebral atrophy, left cerebellar abnormal hypoattenuation consistent with infarct or mass lesion. IMPRESSION: Parotid gland diffuse enlargement and surrounding inflammation Chronic burst fracture deformity of T3 Degenerative changes of the cervical spine Reviewed, dictated and finalized at Location A. Reviewed, dictated and finalized at location A.
[2020-03-10 09:36] VITALS: BP 130/74; PULSE 80; RESP 18; TEMP 36.6; O2SAT 98
--- NOTE | 2020-03-10 10:05 | ED.GENADULT ---
HPI - General Adult General Chief complaint: Unspecified Stated complaint: jaw pain Time Seen by Provider: 03/10/20 09:45 History of Present Illness HPI narrative: Patient presents via EMS from the group home for right-sided neck mass. It is tender to touch and he cannot eat with it. By the record he had a chest x-ray which was normal. He has dementia and is oriented x1. He just keeps saying I do not feel good . Onset (ago): day(s) Location: neck Severity: severe Exacerbating factors: movement and other (Palpitation) Associated symptoms: denies other symptoms Related Data Home Medications Medication Instructions Recorded Confirmed Antacid (calcium carb-mag hyd) 1 tablet PO TID PRN 02/06/20 02/06/20 Levemir FlexTouch U-100 Insuln 25 unit SUBCUT HS 02/06/20 02/06/20 Mucinex DM 1 tablet PO Q12H PRN 02/06/20 02/06/20 acetaminophen 500 mg PO Q4H PRN 02/06/20 02/06/20 amlodipine 10 mg PO DAILY 02/06/20 02/06/20 ascorbic acid (vitamin C) 500 mg PO BID 02/06/20 02/06/20 aspirin 81 mg PO DAILY 02/06/20 02/06/20 bisacodyl 5 mg PO DAILY PRN 02/06/20 02/06/20 budesonide 0.5 mg INHALATION BID 02/06/20 02/07/20 [id number] 1 cap PO Q4H PRN 02/06/20 02/06/20 [Esgic] calcium carbonate [Calcium 600] 600 mg PO DAILY 02/06/20 02/06/20 carvedilol 12.5 mg PO BID 02/06/20 02/06/20 cholecalciferol (vitamin D3) 25 mcg PO DAILY 02/06/20 02/06/20 divalproex 250 mg PO TID 02/06/20 02/06/20 docusate sodium [Colace] 100 mg PO BID 02/06/20 02/06/20 duloxetine 30 mg PO BID 02/06/20 02/06/20 escitalopram oxalate 5 mg PO DAILY 02/06/20 02/06/20 ferrous sulfate 325 mg PO BID 02/06/20 02/06/20 hydroxyzine HCl 25 mg PO TID 02/06/20 02/06/20 insulin lispro [Humalog KwikPen See Protocol SUBCUT TID 02/06/20 02/06/20 Insulin] ipratropium-albuterol 3 ml INHALATION QID PRN 02/06/20 02/06/20 lidocaine [Aspercreme (lidocaine)] 1 patch TOPICAL Q12H 02/06/20 02/06/20 magnesium hydroxide [Milk of 30 ml PO DAILY PRN 02/06/20 02/06/20 Magnesia] memantine 10 mg PO BID 02/06/20 02/06/20 metformin 500 mg PO BID 02/06/20 02/06/20 montelukast 10 mg PO HS 02/06/20 02/06/20 ondansetron HCl [Zofran] 4 mg PO Q6H PRN 02/06/20 02/06/20 pantoprazole 40 mg PO DAILY 02/06/20 02/06/20 polyethylene glycol 3350 [Miralax] 17 g PO DAILY 02/06/20 02/06/20 topiramate 50 mg PO BID 02/06/20 02/06/20 trazodone 50 mg PO DAILY 02/06/20 02/06/20 megestrol [Megace ES] 625 mg PO DAILY 03/10/20 Allergies Allergy/AdvReac Type Severity Reaction Status Date / Time lisinopril Allergy Severe Swelling Verified 03/10/20 09:42 cefuroxime Allergy Unknown Unknown Verified 03/10/20 09:42 Review of Systems Review of Systems: Narrative: Patient has dementia and does not answer accurately. All systems reviewed & are unremarkable except as noted in HPI and below PMFSH Past Medical History Medical History Anemia Anxiety Aortic stenosis Moderate aortic stenosis on echocardiogram in August 2016 with a valve area of 1.4 centimeter squared. Arthritis Back pain BPH (benign prostatic hyperplasia) Chronic kidney disease, stage 3 Congestive heart failure Diastolic dysfunction noted on echocardiogram in August 2016 with an ejection fraction estimated at 60%. COPD (chronic obstructive pulmonary disease) Coronary artery disease With history of SC and stents. CVA (cerebral vascular accident) X2. Dementia Depression Diabetic neuropathy DVT (deep venous thrombosis) Left lower extremity. Hyperlipidemia Hypertension Insulin dependent type 2 diabetes mellitus MRSA infection After sinus surgery. Myocardial infarction Obstructive sleep apnea Osteoarthritis Shingles Surgical History Surgical History History of back surgery History of cardiac catheterization With stent x2. History of sinus surgery History of total bilateral knee replacement Family History Family History
[2020-03-10] MEDS: MORPHINE SULFATE 2 MG/ML INJ IV PUSH (10:25)
--- NOTE | 2020-03-10 11:25 | PC.NURSE ---
Patient to CT at this time.
[2020-03-10 11:32] LABS: Basophils Absolute Auto 0.1 K/mm3 (0.0-0.1); Basophils Percent Auto 0.7 % (0.2-1.2); Eosinophils Absolute Auto 0.3 K/mm3 (0-0.3); Eosinophils Percent Auto 2.3 % (0-4.4); Hematocrit 40.6 % (42.0-52.0); Hemoglobin 12.6 g/dL (14.0-18.0); Immature Granulocyte Absolute 0.52 K/mm3 (0.00-0.031); Immature Granulocyte Percent A 4.3 % (0-0.5); Lymphocytes Absolute Auto 1.98 K/mm3 (0.9-3.2); Lymphocytes Percent Auto 16.6 % (18.3-44.2); Mean Corpuscular Hemoglobin 26.4 pg (26-34); Mean Corpuscular Volume 84.9 fl (80-100); Mean Platelet Volume 9.4 fl (7.4-10.4); Monocytes Absolute Auto 0.7 K/mm3 (0.1-0.6); Neutrophils Absolute Auto 8.4 K/mm3 (1.3-6.7); Neutrophils Percent Auto 70.1 % (45.5-73.1); Platelet Count Result 272 k/mm3 (150-375); Red Blood Count 4.78 M/mm3 (4.6-6.20); Red Cell Distribution Width 15.9 % (11.5-14.5)
[2020-03-10 11:33] LABS: Estimated Glomerular Filt Rate > 60
[2020-03-10 11:45] LABS: Alanine Aminotransferase 8 U/L (4-50); Albumin Level 3.2 g/dL (3.5-5.1); Alkaline Phosphatase 94 U/L (38-126); Aspartate Amino Transferase 20 U/L (17-59); Bilirubin,Total 0.4 mg/dL (0.2-1.3); Blood Urea Nitrogen 28 mg/dL (9-20); Calcium 8.8 mg/dL (8.4-10.2); Carbon Dioxide 24 mmol/L (22-30); Chloride 122 mmol/L (98-107); Estimated Glomerular Filt Rate > 60; Glucose 65 mg/dL (75-110); Potassium 3.8 mmol/L (3.4-5.0); Sodium 152 mmol/L (137-145)
[2020-03-10 13:57] LABS: Lactic Acid 1.1 mmol/L (0.7-2.1)
[2020-03-10 14:03] VITALS: BP 129/73; PULSE 84; RESP 16; O2SAT 99
--- NOTE | 2020-03-10 14:20 | PC.NURSE ---
Patient transferred to unit and report received from LYNNETTE Martin. Discussed patient condition and possible need for Covid testing with Dotty Reeder NP due to patient symptoms and presenting from [facility]. The charge nurse Elaine spoke with housekeeper cleaning cooking Kalpesh about need for transferring to [address] [place] [address] for proper testing. It was decided that the patient should be transferred for testing immediately.
[2020-03-10 14:29] VITALS: BP 151/81; PULSE 84; RESP 18; TEMP 36.1; O2SAT 99
[2020-03-10 15:10] VITALS: BMI 36.0
--- NOTE | 2020-03-10 15:15 | PC.NURSE ---
Patient transferred to [address] [place] [address]. Report given to Noemi.
[2020-03-10 18:00] VITALS: BP 164/84; PULSE 80; RESP 18; TEMP 36.4; O2SAT 97
--- NOTE | 2020-03-10 19:37 | ADMGEN ---
This patient, Joshua Castellano, was admitted to [facility] Room 331-01. Patient/family oriented to hospital policies and general routines including ID bracelet, bed and alarms, visiting hours, pain management, procedures, bathroom and other care routines, personal items, smoking policy, room service/diet, and visiting hours. Valuables list has been completed. Information on how to activate the Rapid Response Team has been discussed. Patient/Family are encouraged to report perceived risks to care and to ask questions if they do not understand what they are told or what they should do.
[2020-03-10] MEDS: DEXTROSE 5%/0.45% SOD CHL 1,000 ML 100 ML IV CONT (20:46)
[2020-03-10 21:43] VITALS: BP 139/71; PULSE 92; RESP 18; TEMP 36.7; O2SAT 98
--- NOTE | 2020-03-10 21:50 | PM.IMHP ---
H&P: HPI History of Present Illness Chief complaint: pseudoseizures Narrative: Joshua Castellano is a 84 year old male who resides at at [facility]. The patient was just discharged from this hospital on 02/16/2020 when he was treated for parotitis. The patient had a PICC line was treated with vancomycin. He did see the infectious disease doctor at that time. To his primary care doctor on 03/07/2020 and it looks like he is being referred to a ENT possibly. It is difficult to read the office note because it is hand written. The patient also has COPD. He also has a history of dementia. He is a poor historian at this time. Patient was also recently found to have severe obstructive sleep apnea. The patient is [facility] here [facility] due to the right-sided neck mass. Is very tender to touch and is having difficulty eating again. She chest x-ray was normal. But they did check him for covid 19 since there is an outbreak at the [facility]. He does have a history of dementia and is only orientated x1. He just told ER doctor that he did feel good. He told me that he is having a lot of discomfort to the right side of his neck. Patient had a CT of his neck that shows bilateral parotiditis patient was started on vancomycin. The patient is afebrile at this time. He was given morphine in the emergency room for discomfort. Date of service 03/10/2020 Review of Systems Review of Systems: All systems reviewed & are unremarkable except as noted in HPI and below ROS unobtainable: Yes unobtainable due to mental status Constitutional: Constitutional: Reports as per HPI and Reports no additional constitutional complaints Eyes: Eyes: Reports as per HPI and Reports no additional eye complaints ENT: Reports system reviewed and no additional complaints, except as documented and Reports Normal hearing present Cardiovascular: Cardiovascular: Reports no additional cardiovascular complaints Respiratory: Respiratory: Reports no additional respiratory complaints and Reports no additional respiratory complaints Gastrointestinal: Gastrointestinal: Reports as per HPI and Reports no additional gastrointestinal complaints Musculoskeletal: Musculoskeletal: Reports no additional musculoskeletal complaints Integumentary/Breasts: Skin/Breast: Reports system reviewed and no additional complaints, except as docu and Reports as per HPI Neurologic: Reports system reviewed and no additional complaints, except as documented, Reports as per HPI and Reports Normal hearing present Psychiatric: Psychiatric: Reports no additional psychiatric complaints and Reports as per HPI Endocrine: Endocrine: Reports no additional endocrine complaints Hematologic/Lymphatic: Hematologic/Lymphatic: Reports no additional hematologic/lymphatic complaints Allergic/Immunologic: Allergic/Immunologic: Reports no additional allergic/immunologic complaints FOR[facility]LY [facility] Past Medical History Medical History Anemia Anxiety Aortic stenosis Moderate aortic stenosis on echocardiogram in August 2016 with a valve area of 1.4 centimeter squared. Arthritis Back pain BPH (benign prostatic hyperplasia) Chronic kidney disease, stage 3 Congestive heart failure Diastolic dysfunction noted on echocardiogram in August 2016 with an ejection fraction estimated at 60%. COPD (chronic obstructive pulmonary disease) Coronary artery disease With history of MD and stents. CVA (cerebral vascular accident) X2. Dementia Depression Diabetic neuropathy DVT (deep venous thrombosis) Left lower extremity. Hyperlipidemia Hypertension Insulin dependent type 2 diabetes mellitus MRSA infection After sinus surgery. Myocardial infarction Obstructive sleep apnea Osteoarthritis Shingles Surgical History Surgical History History of back surgery History of card
[2020-03-10 23:25] VITALS: PULSE 94
[2020-03-10] MEDS: hydrOXYzine HCL 25 MG TABLET PO (23:25)
[2020-03-10] MEDS: carvediloL 12.5 MG TABLET PO (23:25)
[2020-03-10] MEDS: MEMANTINE 10 MG TABLET PO (23:25)
[2020-03-11] VITALS (8 sets, daily range): BP systolic 129–157; BP diastolic 56–86; PULSE 77–101; RESP 18–20; TEMP 36.4–37.4; O2SAT 94–99
[2020-03-11] MEDS: TRAZODONE HCL 50 MG TABLET PO ×2 (00:49→21:00)
[2020-03-11] MEDS: hydrOXYzine HCL 25 MG TABLET PO ×3 (04:00→14:09)
[2020-03-11] MEDS: DEXTROSE 5%/0.45% SOD CHL 1,000 ML 100 ML IV CONT (05:48)
[2020-03-11] MEDS: FERROUS SULFATE 324 MG TABLET PO ×2 (08:34→18:11)
[2020-03-11] MEDS: AMLODIPINE BESYLATE 5 MG TABLET 10 MG PO (08:41)
[2020-03-11] MEDS: DOCUSATE SODIUM 100 MG CAPSULE PO ×2 (08:42→18:10)
[2020-03-11] MEDS: ASPIRIN 81 MG ENTERIC TABLET PO (08:42)
[2020-03-11] MEDS: DIVALPROEX SODIUM SPRINKLE 125 MG CAP.DR 250 MG PO ×3 (08:42→18:09)
[2020-03-11] MEDS: CALCIUM CARBONATE (OSCAL) 500 MG TABLET PO (08:43)
[2020-03-11] MEDS: TOPIRAMATE 25 MG TABLET 50 MG PO ×2 (08:44→18:12)
[2020-03-11] MEDS: MEMANTINE 10 MG TABLET PO ×2 (08:45→21:00)
[2020-03-11] MEDS: carvediloL 12.5 MG TABLET PO ×2 (08:45→21:00)
[2020-03-11] MEDS: ESCITALOPRAM OXALATE 5 MG TABLET PO (08:46)
[2020-03-11] MEDS: PANTOPRAZOLE 40 MG TABLET PO (08:46)
[2020-03-11] MEDS: DULOXETINE HCL 30 MG CAPSULE.DR PO ×2 (08:46→18:10)
[2020-03-11] MEDS: LIDOCAINE 5% PATCH 1 PATCH TRANSDERM (08:48)
[2020-03-11] MEDS: polyethylene glycoL 3350 17 GM POWD.PACK PO (08:49)
[2020-03-11 09:20] LABS: Glucose Point of Care 139 (65-105)
--- NOTE | 2020-03-11 10:05 | PM.IMPN ---
Progress Note: A&P Assessment and Plan (1) Parotiditis: Code(s): K11.20 - Sialoadenitis, unspecified Status: Acute Assessment and Plan: Patient was recently here 02/05 - 02/14 for parotitis that was primarily on the left, returns now with more swelling to right parotid and marked tenderness. He completed a 14-day course of IV vancomycin at that time. Scheduled to see Dr Faulkner 02/19 and I am unsure if he went, will contact office tomorrow. Started on IV vancomycin again, appreciate Infectious Disease consultation for recommendations. Continue supportive care with warm compresses, frequent suctioning. Can try parotid massage once pain is a bit more controlled. Will start on thickened liquid/pureed diet similar to last admission. MBS 02/14 could not rule out microaspiration. He will need teeth extracted after discharge. (2) Suspected 2019 novel coronavirus infection: Code(s): Z20.828 - Contact with and (suspected) exposure to other viral communicable diseases Status: Acute Assessment and Plan: He was tested for COVID-19. Chest XR this morning shows patchy bibasilar infiltrates. Continue droplet isolation while COVID testing is pending. (3) Hypertension: Qualifiers: Hypertension type: essential hypertension Qualified Code(s): I10 - Essential (primary) hypertension Code(s): I10 - Essential (primary) hypertension Status: Acute Assessment and Plan: BPs a bit elevated likely secondary to discomfort. Continue his home Coreg and norvasc, monitor BP. (4) Insulin dependent type 2 diabetes mellitus: Code(s): E11.9 - Type 2 diabetes mellitus without complications; Z79.4 - detention (current) use of insulin Status: Chronic Assessment and Plan: A1c 6.2 one month ago. Not eating much, blood sugar 65 yesterday but 139 this AM. Metformin held, hold Levemir for now. Monitor with Accu-cheks and adjust as needed. He is on fluids with D5 from the ER because he is not eating. Will monitor blood sugars closely. (5) Dementia: Qualifiers: Dementia behavioral disturbance: without behavioral disturbance Dementia type: unspecified type Qualified Code(s): F03.90 - Unspecified dementia without behavioral disturbance Code(s): F03.90 - Unspecified dementia without behavioral disturbance Status: Acute Assessment and Plan: Continue with Namenda, depakote and lexapro. Confused this AM but able to answer a couple questions. (6) COPD (chronic obstructive pulmonary disease): Qualifiers: COPD type: COPD with acute exacerbation Qualified Code(s): J44.1 - Chronic obstructive pulmonary disease with (acute) exacerbation Code(s): J44.9 - Chronic obstructive pulmonary disease, unspecified Status: Acute Assessment and Plan: Had COPD exacerbation during last admission. No nebs due to COVID testing. Continue home singular and add albuterol MDI. Respiratory status is stable at this point and he is tolerating room air. (7) Obstructive sleep apnea: Code(s): G47.33 - Obstructive sleep apnea (adult) (pediatric) Status: Chronic Assessment and Plan: Not able to use CPAP due to pending COVID testing. Subjective Date/time seen: 03/11/20 10:00 Interval history: Mr. Castellano is an 84yo M admitted for parotitis. Was just admitted 1 month ago for parotitis on the left, now swelling is mostly on the right. He is lethargic but wakes to verbal stimuli and answers some questions. He is able to answer some questions, knows he is in the hospital, able to swallow okay for morning medications. He has some coughing but tells me he is not short of breath. He denies abdominal pain, nausea or vomiting. Unsure how reliable ROS is ba
[2020-03-11 11:17] LABS: Basophils Absolute Auto 0.1 K/mm3 (0.0-0.1); Basophils Percent Auto 0.7 % (0.2-1.2); Eosinophils Absolute Auto 0.2 K/mm3 (0-0.3); Eosinophils Percent Auto 1.4 % (0-4.4); Hematocrit 38.5 % (42.0-52.0); Hemoglobin 11.9 g/dL (14.0-18.0); Immature Granulocyte Absolute 0.42 K/mm3 (0.00-0.031); Lymphocytes Absolute Auto 1.43 K/mm3 (0.9-3.2); Lymphocytes Percent Auto 13.6 % (18.3-44.2); Mean Corpuscular HGB Conc 30.9 g/dl (32-36); Mean Corpuscular Hemoglobin 26.1 pg (26-34); Mean Corpuscular Volume 84.4 fl (80-100); Mean Platelet Volume 9.4 fl (7.4-10.4); Monocytes Absolute Auto 0.7 K/mm3 (0.1-0.6); Monocytes Percent Auto 6.5 % (2.6-8.5); Neutrophils Absolute Auto 7.7 K/mm3 (1.3-6.7); Neutrophils Percent Auto 73.8 % (45.5-73.1); Platelet Count Result 250 k/mm3 (150-375); Red Blood Count 4.56 M/mm3 (4.6-6.20); Red Cell Distribution Width 15.9 % (11.5-14.5); White Blood Count 10.5 K/mm3 (4.5-10.0)
[2020-03-11 11:28] LABS: Alanine Aminotransferase 8 U/L (4-50); Albumin Level 2.9 g/dL (3.5-5.1); Alkaline Phosphatase 88 U/L (38-126); Aspartate Amino Transferase 15 U/L (17-59); Bilirubin,Total 0.5 mg/dL (0.2-1.3); Blood Urea Nitrogen 18 mg/dL (9-20); Calcium 8.4 mg/dL (8.4-10.2); Carbon Dioxide 21 mmol/L (22-30); Chloride 121 mmol/L (98-107); Estimated CRCL calculation 61 ml/min; Estimated Glomerular Filt Rate > 60; Glucose 208 mg/dL (75-110); Magnesium 1.9 mg/dL (1.6-2.3); Potassium 3.5 mmol/L (3.4-5.0); Sodium 148 mmol/L (137-145)
[2020-03-11 12:56] LABS: Glucose Point of Care 149 (65-105)
--- NOTE | 2020-03-11 18:01 | WPDINFPN2 ---
Progress Note: A&P Additional Plan Pt was seen and consult dictated. thank you. Subjective Date/time seen: 03/11/20 18:01 Objective Data Vital Signs Vital Signs: Vital Signs - 24 hr 03/10/20 21:43 03/10/20 23:25 03/11/20 02:00 Temperature 36.7 C 36.6 C Pulse Rate 92 94 92 Respiratory Rate 18 20 Blood Pressure 139/71 153/70 H Pulse Oximetry 98 98 03/11/20 06:00 03/11/20 08:39 03/11/20 08:45 Temperature 37.4 C 36.4 C L Pulse Rate 92 101 H 101 H Respiratory Rate 20 18 Blood Pressure 154/86 H 157/78 H Pulse Oximetry 98 96 03/11/20 10:00 03/11/20 14:00 Temperature 36.4 C 36.4 C Pulse Rate 91 80 Respiratory Rate 20 20 Blood Pressure 129/79 143/56 H Pulse Oximetry 94 99 Intake/Output Intake/Output: Intake & Output 03/08/20 03/09/20 03/10/20 03/11/20 23:59 23:59 23:59 23:59 Intake Total 1320 Balance 1320 Meds/Results Medications: Active Medications Generic Name Dose Route Start Last Admin Trade Name Freq PRN Reason Stop Dose Admin Albuterol 2 puff 03/11/20 11:00 Proventil Hfa INHALATION QIDRT PRN Shortness Of Breath Amlodipine Besylate 10 mg 03/11/20 09:00 03/11/20 08:41 Norvasc PO 10 mg DAILY JOSIAH Administration Aspirin 81 mg 03/11/20 09:00 03/11/20 08:42 Aspirin Ec PO 81 mg DAILY JOSIAH Administration Bisacodyl 10 mg 03/10/20 21:45 Dulcolax Tab PO DAILY PRN Constipation Butalbital/Aspirin/Caffeine 1 cap 03/10/20 23:41 Fioricet Capsule PO Q4H PRN Headache Calcium Carbonate 500 mg 03/11/20 09:00 03/11/20 08:43 Oscal 500 Mg PO 500 mg QAM JOSIAH Administration Carvedilol 12.5 mg 03/10/20 21:00 03/11/20 08:45 Coreg PO 12.5 mg Q12HR JOSIAH Administration Dextrose 12.5 gm 03/10/20 22:01 Dextrose 50% Syringe IV PUSH PRN PRN Hypoglycemia Protocol Divalproex Sodium 250 mg 03/11/20 09:00 03/11/20 14:09 Depakote Sprinkle PO 250 mg TID JOSIAH Administration Docusate Sodium 100 mg 03/11/20 09:00 03/11/20 08:42 Colace Capsule PO 100 mg BID JOSIAH Administration Duloxetine HCl 30 mg 03/11/20 09:00 03/11/20 08:46 Cymbalta PO 30 mg BID JOSIAH Administration Escitalopram Oxalate 5 mg 03/11/20 09:00 03/11/20 08:46 Lexapro PO 5 mg DAILY JOSIAH Administration Fentanyl Citrate 25 mcg 03/10/20 22:02 Sublimaze IV PUSH Q4H PRN Pain Rated 7-10 Ferrous Sulfate 324 mg 03/11/20 08:00 03/11/20 08:34 Ferrous Sulfate PO 324 mg BIDWM JOSIAH Administration Glucagon 1 mg 03/10/20 22:01 Glucagon For Inj IM PRN PRN Hypoglycemia Protocol Glucose 15 gm 03/10/20 22:01 Glutose 15 PO PRN PRN Hypoglycemia Protocol Hydroxyzine HCl 25 mg 03/10/20 22:00 03/11/20 14:09 Atarax Tablet PO 25 mg Q8HR JOSIAH Administration Dextrose/Sodium Chloride 1,000 mls @ 75 mls/hr 03/10/20 13:15 03/11/20 05:48 Dextrose 5% Sodium Chloride 0.45% IV CONT 100 mls/hr .[id number] JOSIAH Administration Vancomycin HCl 1,500 mg in 500 mls @ 333.333 mls/hr 03/11/20 14:00 03/11/20 14:08 Vancomycin 1,500 Mg/D5w 500 Ml IVPB 333.3 mls/hr Q24H JOSIAH Administration Acetaminophen 1,000 mg in 100 mls @ 400 mls/hr 03/10/20 21:43 Ofirmev 1,000 Mg Ivpb IVPB 03/11/20 21:44 Q6H PRN Pain Rated 4-6 Dextrose 1,000 mls @ 100 mls/hr 03/10/20 22:01 Dextrose 5% 1,000 Ml IVPB PRN PRN Hypoglycemia Protocol Insulin Aspart 2 - 5 units 03/11/20 08:00 03/11/20 13:13 Novolog SUB-Q Not Given TIDWM JOSIAH Protocol Insulin Detemir 25 units 03/11/20 21:00 Levemir SUB-Q HS JOSIAH Lidocaine 1 patch 03/11/20 09:00 03/11/20 08:48 Lidoderm TRANSDERM 1 patch DAILY JOSIAH Administration Magnesium Hydroxide 30 ml 03/10/20 21:45 Milk Of Magnesia PO DAILY PRN Indigestion Memantine 10 mg 03/10/20 21:00 03/11/20 08:45 Namenda PO 10 mg Q12HR JOSIAH
[2020-03-11] MEDS: MONTELUKAST SODIUM 10 MG TABLET PO (21:00)
[2020-03-11 22:01] LABS: Glucose Point of Care 108 (65-105)
[2020-03-11 22:01] LABS: Glucose Point of Care 111 (65-105)
[2020-03-12] VITALS (8 sets, daily range): BP systolic 120–168; BP diastolic 57–86; PULSE 72–84; RESP 18–22; TEMP 36.4–36.9; O2SAT 97–100
--- NOTE | 2020-03-12 02:01 | CONS_ITS ---
DATE OF CONSULTATION: 03/11/2020 REQUESTING PHYSICIAN: Angelique Cristobal REASON FOR CONSULTATION: Sialadenitis. HISTORY OF PRESENT ILLNESS: This is an 84-year-old male with significant past medical history for type 2 diabetes, dementia, hypertension, who presented from a longterm with change in mental status and pseudoseizure. The patient was found to have persistent right parotid gland swelling. The patient was previously treated on 02/16/2020 for sialadenitis and parotiditis. Currently, the patient is lethargic and barely arousable. We were requested to see him for further evaluation. Currently not in distress. PAST MEDICAL HISTORY: Anemia, anxiety, aortic stenosis, BPH, COPD, coronary artery disease, cerebrovascular accident x2, dementia, depression, diabetic neuropathy, hypertension, insulin-dependent type 2 diabetes, MRSA infection, myocardial infarction, obstructive sleep apnea, shingles. PAST SURGICAL HISTORY: Back surgery, cardiac catheterization, stent, sinus surgery, bilateral knee replacement. FAMILY HISTORY: Positive for cancer and hypertension. SOCIAL HISTORY: Resident of longterm. Nonsmoker, nondrinker. MEDICATIONS: At the longterm: 1. Levemir. 2. Tylenol. 3. Amlodipine. 4. Aspirin. 5. Bisacodyl. 6. Vitamin D. 7. Divalproex. 8. Duloxetine. 9. Citalopram. 10. Furosemide. 11. Ferrous sulfate. 12. Hydroxyzine. 13. Insulin sliding scale. 14. Memantine. 15. Metformin. 16. Pantoprazole. 17. Topiramate. 18. Trazodone. Medications in the hospital, he is currently on: 1. Vancomycin. 2. Depakote. 3. Amlodipine. 4. Aspirin. 5. Carvedilol. 6. Duloxetine. 7. Citalopram. 8. Furosemide. 9. Hydroxyzine. 10. Pantoprazole. 11. Topiramate. 12. Insulin Levemir and sliding scale. ALLERGIES: 1. ALLERGIC TO LISINOPRIL, SEVERE SWELLING. 2. CEFUROXIME, ALLERGY UNKNOWN. REVIEW OF SYSTEMS: Unable to obtain. The patient is lethargic. PHYSICAL EXAMINATION: VITAL SIGNS: Temperature is 36.4, pulse rate of 80, respiratory rate of 20, blood pressure of 143/56, saturating 99%. He has remained afebrile since admission. HEAD AND NECK: Normocephalic, atraumatic with prominent right parotid gland swelling, very tender to touch and minimal warmth. NECK: Supple. LUNGS: Poor inspiratory effort. CARDIOVASCULAR SYSTEM: Positive S1, S2-S4. No murmur. ABDOMEN: Positive bowel sounds. Nontender. No organomegaly. No mass. EXTREMITIES: No edema. SKIN: There is no rash. NEUROLOGICAL: He is lethargic, but arousable. No nuchal rigidity or photophobia. LABORATORY EXAMINATION: Blood cultures x2 set from the 9 so far negative. White count is 10, hemoglobin of 11, hematocrit 38, platelet of 250, segmental of 73%. Sodium is 148, potassium of 3.5, chloride of 121, bicarb of 21, BUN 18, creatinine 0.9, alk phos of 88, AST of 15, ALT of 8, albumin of 2.9. SARS-CoV-2 RNA was negative. Urinalysis nitrite negative, leukocyte esterase +1, wbc of 31-50. CT scan of the neck soft tissue, parotid gland diffuse enlargement and surrounding inflammation, chronic burst fracture deformity of C3, degenerative change of cervical spine. ASSESSMENT AND PLAN: 1. Parotiditis with history of sialadenitis. Currently on a CAT scan, no signs of stone obstruction. The patient may benefit from an ENT evaluation. At this point, vancomycin monotherapy is adequate. Typically, the normal pathogenic bacteria in the parotid gland infection is Staph aureus with adequate coverage with vancomycin. Blood cultures have been so far negative. 2. Change in mental status with underlying history of dementia, most likely secondary to underlying infection. No signs of nuchal rigidity or photophobia.
[2020-03-12 06:27] LABS: Basophils Absolute Auto 0.1 K/mm3 (0.0-0.1); Basophils Percent Auto 0.8 % (0.2-1.2); Eosinophils Absolute Auto 0.1 K/mm3 (0-0.3); Eosinophils Percent Auto 1.1 % (0-4.4); Hemoglobin 11.9 g/dL (14.0-18.0); Immature Granulocyte Absolute 0.47 K/mm3 (0.00-0.031); Immature Granulocyte Percent A 4.2 % (0-0.5); Lymphocytes Absolute Auto 1.75 K/mm3 (0.9-3.2); Lymphocytes Percent Auto 15.5 % (18.3-44.2); Mean Corpuscular HGB Conc 30.5 g/dl (32-36); Mean Corpuscular Hemoglobin 26.4 pg (26-34); Mean Corpuscular Volume 86.7 fl (80-100); Mean Platelet Volume 9.7 fl (7.4-10.4); Monocytes Absolute Auto 0.7 K/mm3 (0.1-0.6); Monocytes Percent Auto 6.3 % (2.6-8.5); Neutrophils Absolute Auto 8.2 K/mm3 (1.3-6.7); Neutrophils Percent Auto 72.1 % (45.5-73.1); Platelet Count Result 257 k/mm3 (150-375); White Blood Count 11.3 K/mm3 (4.5-10.0)
[2020-03-12] MEDS: DEXTROSE 5%/0.45% SOD CHL 1,000 ML 100 ML IV CONT (06:38)
[2020-03-12] MEDS: hydrOXYzine HCL 25 MG TABLET PO ×3 (06:39→21:26)
[2020-03-12 07:11] LABS: Alanine Aminotransferase 8 U/L (4-50); Albumin Level 2.7 g/dL (3.5-5.1); Alkaline Phosphatase 89 U/L (38-126); Aspartate Amino Transferase 20 U/L (17-59); Bilirubin,Total 0.6 mg/dL (0.2-1.3); Blood Urea Nitrogen 20 mg/dL (9-20); Carbon Dioxide 19 mmol/L (22-30); Chloride 121 mmol/L (98-107); Estimated CRCL calculation 55 ml/min; Estimated Glomerular Filt Rate > 60; Glucose 146 mg/dL (75-110); Lactate Dehydrogenase 904 U/L (313-618); Magnesium 1.8 mg/dL (1.6-2.3); Potassium 3.7 mmol/L (3.4-5.0); Sodium 148 mmol/L (137-145)
[2020-03-12 07:15] LABS: CRP 15.3 mg/dL (<1.0)
[2020-03-12] MEDS: LIDOCAINE 5% PATCH 1 PATCH TRANSDERM (08:45)
[2020-03-12] MEDS: polyethylene glycoL 3350 17 GM POWD.PACK PO (08:50)
[2020-03-12] MEDS: CALCIUM CARBONATE (OSCAL) 500 MG TABLET PO (08:50)
[2020-03-12] MEDS: ESCITALOPRAM OXALATE 5 MG TABLET PO (08:50)
[2020-03-12] MEDS: DOCUSATE SODIUM 100 MG CAPSULE PO ×2 (08:51→17:34)
[2020-03-12] MEDS: DIVALPROEX SODIUM SPRINKLE 125 MG CAP.DR 250 MG PO ×3 (08:51→17:34)
[2020-03-12] MEDS: AMLODIPINE BESYLATE 5 MG TABLET 10 MG PO (08:51)
[2020-03-12] MEDS: MEMANTINE 10 MG TABLET PO ×2 (08:51→21:29)
[2020-03-12] MEDS: ASPIRIN 81 MG ENTERIC TABLET PO (08:51)
[2020-03-12] MEDS: DULOXETINE HCL 30 MG CAPSULE.DR PO ×2 (08:51→17:34)
[2020-03-12] MEDS: FERROUS SULFATE 324 MG TABLET PO ×2 (08:51→17:34)
[2020-03-12] MEDS: TOPIRAMATE 25 MG TABLET 50 MG PO ×2 (08:51→17:35)
[2020-03-12] MEDS: carvediloL 12.5 MG TABLET PO ×2 (08:51→21:26)
[2020-03-12] MEDS: PANTOPRAZOLE 40 MG TABLET PO (08:51)
[2020-03-12 09:40] LABS: Glucose Point of Care 113 (65-105)
[2020-03-12] MEDS: TOLNAFTATE 1% POWDER 45 GM BTL 1 APPLIC TOPICAL ×2 (13:16→21:29)
[2020-03-12] MEDS: DEXTROSE 5%/0.45% SOD CHL 1,000 ML 50 ML IV CONT (13:17)
--- NOTE | 2020-03-12 13:56 | PM.IMPN ---
Progress Note: A&P Assessment and Plan (1) Parotiditis: Code(s): K11.20 - Sialoadenitis, unspecified Status: Acute Assessment and Plan: Patient was recently here 02/05 - 02/14 for parotitis that was primarily on the left, returns now with more swelling to right parotid and marked tenderness. He completed a 14-day course of IV vancomycin at that time. Scheduled to see Dr Faulkner 02/19 - contacted the office and noted he did not come to this appointment. Started on IV vancomycin again, appreciate Infectious Disease consultation for recommendations. Continue supportive care with warm compresses, frequent suctioning, parotid massage. Will continue thickened liquid/pureed diet similar to last admission. MBS 02/14 could not rule out microaspiration. He will need teeth extracted after discharge. (2) Suspected 2019 novel coronavirus infection: Code(s): Z20.828 - Contact with and (suspected) exposure to other viral communicable diseases Status: Ruled-out Assessment and Plan: He was tested for COVID-19 coming from [facility]. COVID-19 negative. Discontinue isolation. (3) Hypertension: Qualifiers: Hypertension type: essential hypertension Qualified Code(s): I10 - Essential (primary) hypertension Code(s): I10 - Essential (primary) hypertension Status: Acute Assessment and Plan: BPs intermittently elevated likely secondary to discomfort, stable this afternoon. Continue his home Coreg and norvasc, monitor BP. 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 Not eating much, previously with hypoglycemia - sugars stable today. Metformin held, hold Levemir for now. Monitor with Accu-cheks and adjust as needed. D5 in fluids since he is not eating much - reevaluate once he is eating more. Will monitor blood sugars closely. (5) Dementia: Qualifiers: Dementia behavioral disturbance: without behavioral disturbance Dementia type: unspecified type Qualified Code(s): F03.90 - Unspecified dementia without behavioral disturbance Code(s): F03.90 - Unspecified dementia without behavioral disturbance Status: Acute Assessment and Plan: Continue with Namenda, depakote and lexapro. (6) COPD (chronic obstructive pulmonary disease): Qualifiers: COPD type: COPD with acute exacerbation Qualified Code(s): J44.1 - Chronic obstructive pulmonary disease with (acute) exacerbation Code(s): J44.9 - Chronic obstructive pulmonary disease, unspecified Status: Acute Assessment and Plan: Had COPD exacerbation during last admission. Respiratory status is stable at this point and he is tolerating room air. Continue home singular and add albuterol MDI. (7) Obstructive sleep apnea: Code(s): G47.33 - Obstructive sleep apnea (adult) (pediatric) Status: Chronic Assessment and Plan: Was previously not able to use CPAP due to pending COVID testing, now that he is negative may consider CPAP once his parotid swelling improves some. Subjective Date/time seen: 03/12/20 13:30 Interval history: Mr. Castellano is an 84yo M admitted for parotitis. Was just admitted 1 month ago for parotitis on the left, now swelling is mostly on the right. At time of my exam he will not answer my questions but RN notes he was more awake and talkative earlier stating Leave me alone, get out . He winces when right partoid swelling is touched. Unable to obtain review of systems due to mental status. Review of Systems Review of Systems: ROS unobtainable: Yes unobtainabl
[2020-03-12 14:00] LABS: Glucose Point of Care 117 (65-105)
[2020-03-12 15:31] LABS: SARS-CoV-2 RNA PCR Negative
--- NOTE | 2020-03-12 15:35 | WPDINFPN2 ---
Progress Note: A&P Assessment and Plan (1) Parotiditis: Code(s): K11.20 - Sialoadenitis, unspecified Status: Acute Assessment and Plan: 1. Persistent parotiditis, BCs ngsf 2. Confusion due to dementia and hyponatremia, not due to sepsis 3. Mild leukocytosis REC Change Vanc to TMP-SMX for 2-4 weeks. Subjective Date/time seen: 03/12/20 15:35 Interval history: confused, offers no complaints. Exam Narrative: Exam Narrative: afebrile Const: General: no acute distress HENMT: Other: r parotid with more edema and tenderness than last exam about 3-4 weeks ago Eyes: General: appearance normal, both eyes and all related structures Neck: Neck: supple Resp: Effort & Inspection: normal respiratory effort Auscultation: clear to auscultation bilaterally Cardio: Rate: regular rate Rhythm: regular rhythm GI: Inspection: non-distended GI Palp: Yes Soft to palpation and No Tenderness to palpation present (GI) Objective Data Vital Signs Vital Signs: Vital Signs - 24 hr 03/11/20 21:00 03/11/20 22:00 03/12/20 02:00 Temperature 37.0 C 36.9 C Pulse Rate 79 77 79 Respiratory Rate 20 18 Blood Pressure 140/67 155/78 H Pulse Oximetry 97 97 03/12/20 06:00 03/12/20 08:51 03/12/20 10:00 Temperature 36.4 C 36.6 C Pulse Rate 72 82 84 Respiratory Rate 20 20 Blood Pressure 165/75 H 168/86 H Pulse Oximetry 98 98 03/12/20 14:00 Temperature 36.6 C Pulse Rate 74 Respiratory Rate 18 Blood Pressure 120/71 Pulse Oximetry 99 Intake/Output Intake/Output: Intake & Output 03/09/20 03/10/20 03/11/20 03/12/20 23:59 23:59 23:59 23:59 Intake Total 2809 2019 Balance 2809 2019 Meds/Results Medications: Active Medications Generic Name Dose Route Start Last Admin Trade Name Freq PRN Reason Stop Dose Admin Albuterol 2 puff 03/11/20 11:00 Proventil Hfa INHALATION QIDRT PRN Shortness Of Breath Amlodipine Besylate 10 mg 03/11/20 09:00 03/12/20 08:51 Norvasc PO 10 mg DAILY JOSIAH Administration Aspirin 81 mg 03/11/20 09:00 03/12/20 08:51 Aspirin Ec PO 81 mg DAILY JOSIAH Administration Bisacodyl 10 mg 03/10/20 21:45 Dulcolax Tab PO DAILY PRN Constipation Butalbital/Aspirin/Caffeine 1 cap 03/10/20 23:41 Fioricet Capsule PO Q4H PRN Headache Calcium Carbonate 500 mg 03/11/20 09:00 03/12/20 08:50 Oscal 500 Mg PO 500 mg QAM JOSIAH Administration Carvedilol 12.5 mg 03/10/20 21:00 03/12/20 08:51 Coreg PO 12.5 mg Q12HR JOSIAH Administration Dextrose 12.5 gm 03/10/20 22:01 Dextrose 50% Syringe IV PUSH PRN PRN Hypoglycemia Protocol Divalproex Sodium 250 mg 03/11/20 09:00 03/12/20 13:16 Depakote Sprinkle PO 250 mg TID JOSIAH Administration Docusate Sodium 100 mg 03/11/20 09:00 03/12/20 08:51 Colace Capsule PO 100 mg BID JOSIAH Administration Duloxetine HCl 30 mg 03/11/20 09:00 03/12/20 08:51 Cymbalta PO 30 mg BID JOSIAH Administration Escitalopram Oxalate 5 mg 03/11/20 09:00 03/12/20 08:50 Lexapro PO 5 mg DAILY JOSIAH Administration Fentanyl Citrate 25 mcg 03/10/20 22:02 Sublimaze IV PUSH Q4H PRN Pain Rated 7-10 Ferrous Sulfate 324 mg 03/11/20 08:00 03/12/20 08:51 Ferrous Sulfate PO 324 mg BIDWM JOSIAH Administration Glucagon 1 mg 03/10/20 22:01 Glucagon For Inj IM PRN PRN Hypoglycemia Protocol Glucose 15 gm 03/10/20 22:01 Glutose 15 PO PRN PRN Hypoglycemia Protocol Hydroxyzine HCl 25 mg 03/10/20 22:00 03/12/20 13:19 Atarax Tablet PO 25 mg Q8HR JOSIAH Administration Dextrose/Sodium Chloride 1,000 mls @ 50 mls/hr 03/10/20 13:15 03/12/20 13:17 Dextrose 5% Sodium Chloride 0.45% IV CONT 50 mls/hr .Q20H JOSIAH Administration Vancomycin HCl 1,500 mg in 500 mls @ 333.333 mls/hr 03/11/20 14:00 03/12/20 13:23 Vancomycin 1,500 Mg/D5w 500 Ml IVPB 333.3 mls/hr Q24H
[2020-03-12] MEDS: DEXTROSE 5% 1,000 ML 1,000 ML 75 ML IV CONT (17:32)
[2020-03-12 17:45] LABS: Glucose Point of Care 117 (65-105)
[2020-03-12] MEDS: TRAZODONE HCL 50 MG TABLET PO (21:27)
[2020-03-12] MEDS: MONTELUKAST SODIUM 10 MG TABLET PO (21:29)
[2020-03-12 22:30] LABS: Glucose Point of Care 141 (65-105)
[2020-03-13] VITALS (9 sets, daily range): BP systolic 111–156; BP diastolic 49–81; PULSE 64–80; RESP 13–20; TEMP 36.4–37.3; O2SAT 92–99
[2020-03-13 05:43] LABS: Basophils Absolute Auto 0.1 K/mm3 (0.0-0.1); Basophils Percent Auto 0.7 % (0.2-1.2); Eosinophils Absolute Auto 0.2 K/mm3 (0-0.3); Eosinophils Percent Auto 1.5 % (0-4.4); Hematocrit 36.5 % (42.0-52.0); Hemoglobin 11.3 g/dL (14.0-18.0); Immature Granulocyte Absolute 0.41 K/mm3 (0.00-0.031); Immature Granulocyte Percent A 3.8 % (0-0.5); Lymphocytes Absolute Auto 1.71 K/mm3 (0.9-3.2); Lymphocytes Percent Auto 15.8 % (18.3-44.2); Mean Corpuscular Hemoglobin 26.3 pg (26-34); Mean Corpuscular Volume 85.1 fl (80-100); Mean Platelet Volume 9.3 fl (7.4-10.4); Monocytes Absolute Auto 0.6 K/mm3 (0.1-0.6); Monocytes Percent Auto 5.6 % (2.6-8.5); Neutrophils Absolute Auto 7.9 K/mm3 (1.3-6.7); Neutrophils Percent Auto 72.6 % (45.5-73.1); Platelet Count Result 250 k/mm3 (150-375); Red Blood Count 4.29 M/mm3 (4.6-6.20); Red Cell Distribution Width 15.8 % (11.5-14.5); White Blood Count 10.8 K/mm3 (4.5-10.0)
[2020-03-13 06:04] LABS: Blood Urea Nitrogen 17 mg/dL (9-20); Calcium 7.8 mg/dL (8.4-10.2); Carbon Dioxide 20 mmol/L (22-30); Chloride 116 mmol/L (98-107); Estimated CRCL calculation 55 ml/min; Estimated Glomerular Filt Rate > 60; Glucose 126 mg/dL (75-110); Magnesium 1.8 mg/dL (1.6-2.3); Phosphorus 2.7 mg/dL (2.5-4.5); Potassium 3.3 mmol/L (3.4-5.0); Sodium 144 mmol/L (137-145)
[2020-03-13] MEDS: hydrOXYzine HCL 25 MG TABLET PO ×3 (06:10→21:34)
[2020-03-13] MEDS: DEXTROSE 5% 1,000 ML 1,000 ML 75 ML IV CONT (08:14)
[2020-03-13 09:07] LABS: Glucose Point of Care 116 (65-105)
[2020-03-13] MEDS: POTASSIUM CHLORIDE 20 MEQ TABLET 40 MEQ PO (09:38)
[2020-03-13] MEDS: AMLODIPINE BESYLATE 5 MG TABLET 10 MG PO (09:39)
[2020-03-13] MEDS: FERROUS SULFATE 324 MG TABLET PO ×2 (09:39→17:51)
[2020-03-13] MEDS: ESCITALOPRAM OXALATE 5 MG TABLET PO (09:40)
[2020-03-13] MEDS: CALCIUM CARBONATE (OSCAL) 500 MG TABLET PO (09:40)
[2020-03-13] MEDS: carvediloL 12.5 MG TABLET PO ×2 (09:40→21:34)
[2020-03-13] MEDS: ASPIRIN 81 MG ENTERIC TABLET PO (09:40)
[2020-03-13] MEDS: DIVALPROEX SODIUM SPRINKLE 125 MG CAP.DR 250 MG PO ×3 (09:40→17:50)
[2020-03-13] MEDS: PANTOPRAZOLE 40 MG TABLET PO (09:42)
[2020-03-13] MEDS: DOCUSATE SODIUM 100 MG CAPSULE PO ×2 (09:42→17:50)
[2020-03-13] MEDS: LIDOCAINE 5% PATCH 1 PATCH TRANSDERM (09:42)
[2020-03-13] MEDS: DULOXETINE HCL 30 MG CAPSULE.DR PO ×2 (09:42→17:49)
[2020-03-13] MEDS: MEMANTINE 10 MG TABLET PO ×2 (09:45→21:34)
[2020-03-13] MEDS: polyethylene glycoL 3350 17 GM POWD.PACK PO (09:45)
[2020-03-13] MEDS: TOPIRAMATE 25 MG TABLET 50 MG PO ×2 (09:45→17:51)
[2020-03-13] MEDS: TOLNAFTATE 1% POWDER 45 GM BTL 1 APPLIC TOPICAL ×2 (09:45→21:34)
[2020-03-13 12:11] LABS: Glucose Point of Care 131 (65-105)
[2020-03-13] MEDS: ALBUTEROL SULFATE (*SP) AEROSOL 1 PUFF 2 PUFF INHALATION (12:28)
--- NOTE | 2020-03-13 13:52 | WPDINFPN2 ---
Progress Note: A&P Assessment and Plan (1) Parotiditis: Code(s): K11.20 - Sialoadenitis, unspecified Status: Acute Assessment and Plan: 1. Persistent parotiditis, BCs ngsf 2. Confusion due to dementia and hyponatremia, not due to sepsis 3. Mild leukocytosis, slightly better REC TMP-SMX # 2 / 14-28 days. Subjective Date/time seen: 03/13/20 13:52 Interval history: awake, + pain Exam Narrative: Exam Narrative: afebrile Const: General: no acute distress HENMT: Other: parotid right still photographer, no erythema, + edema, not fluctuant Objective Data Vital Signs Vital Signs: Vital Signs - 24 hr 03/12/20 14:00 03/12/20 21:20 03/12/20 21:26 Temperature 36.6 C Pulse Rate 74 74 74 Respiratory Rate 18 Blood Pressure 120/71 120/60 Pulse Oximetry 99 03/12/20 22:00 03/13/20 02:00 03/13/20 06:00 Temperature 36.6 C 36.4 C 37.0 C Pulse Rate 80 64 73 Respiratory Rate 22 H 20 18 Blood Pressure 152/57 H 111/49 L 150/75 H Pulse Oximetry 100 95 99 03/13/20 09:40 Temperature Pulse Rate 80 Respiratory Rate Blood Pressure Pulse Oximetry Intake/Output Intake/Output: Intake & Output 03/10/20 03/11/20 03/12/20 03/13/20 23:59 23:59 23:59 23:59 Intake Total 2810 2790 1480 Balance 2810 2790 1480 Meds/Results Medications: Active Medications Generic Name Dose Route Start Last Admin Trade Name Freq PRN Reason Stop Dose Admin Albuterol 2 puff 03/11/20 11:00 03/13/20 12:28 Proventil Hfa INHALATION 2 puff QIDRT PRN Administration Shortness Of Breath Amlodipine Besylate 10 mg 03/11/20 09:00 03/13/20 09:39 Norvasc PO 10 mg DAILY JOSIAH Administration Aspirin 81 mg 03/11/20 09:00 03/13/20 09:40 Aspirin Ec PO 81 mg DAILY JOSIAH Administration Bisacodyl 10 mg 03/10/20 21:45 Dulcolax Tab PO DAILY PRN Constipation Butalbital/Aspirin/Caffeine 1 cap 03/10/20 23:41 Fioricet Capsule PO Q4H PRN Headache Calcium Carbonate 500 mg 03/11/20 09:00 03/13/20 09:40 Oscal 500 Mg PO 500 mg QAM JOSIAH Administration Carvedilol 12.5 mg 03/10/20 21:00 03/13/20 09:40 Coreg PO 12.5 mg Q12HR JOSIAH Administration Dextrose 12.5 gm 03/10/20 22:01 Dextrose 50% Syringe IV PUSH PRN PRN Hypoglycemia Protocol Divalproex Sodium 250 mg 03/11/20 09:00 03/13/20 09:40 Depakote Sprinkle PO 250 mg TID JOSIAH Administration Docusate Sodium 100 mg 03/11/20 09:00 03/13/20 09:42 Colace Capsule PO 100 mg BID JOSIAH Administration Duloxetine HCl 30 mg 03/11/20 09:00 03/13/20 09:42 Cymbalta PO 30 mg BID JOSIAH Administration Escitalopram Oxalate 5 mg 03/11/20 09:00 03/13/20 09:40 Lexapro PO 5 mg DAILY JOSIAH Administration Fentanyl Citrate 25 mcg 03/10/20 22:02 Sublimaze IV PUSH Q4H PRN Pain Rated 7-10 Ferrous Sulfate 324 mg 03/11/20 08:00 03/13/20 09:39 Ferrous Sulfate PO 324 mg BIDWM JOSIAH Administration Glucagon 1 mg 03/10/20 22:01 Glucagon For Inj IM PRN PRN Hypoglycemia Protocol Glucose 15 gm 03/10/20 22:01 Glutose 15 PO PRN PRN Hypoglycemia Protocol Hydroxyzine HCl 25 mg 03/10/20 22:00 03/13/20 06:10 Atarax Tablet PO 25 mg Q8HR JOSIAH Administration Dextrose 1,000 mls @ 100 mls/hr 03/10/20 22:01 Dextrose 5% 1,000 Ml IVPB PRN PRN Hypoglycemia Protocol Dextrose 1,000 mls @ 75 mls/hr 03/12/20 16:40 03/13/20 08:14 Dextrose 5% 1,000 Ml IV CONT 75 mls/hr .[id number] JOSIAH Administration Insulin Aspart 2 - 5 units 03/11/20 08:00 03/13/20 12:00 Novolog SUB-Q Not Given TIDWM [facility] Protocol Insulin Detemir 25 units 03/11/20 21:00 Levemir SUB-Q HS JOSIAH Lidocaine 1 patch 03/11/20 09:00 03/13/20 09:42 Lidoderm TRANSDERM 1 patch DAILY JOSIAH Administration Magnesium Hydroxide 30 ml 03/10/20 21:45 Milk Of Magnesia PO DAILY PRN
--- NOTE | 2020-03-13 14:29 | PM.IMPN ---
Progress Note: A&P Assessment and Plan (1) Parotiditis: Code(s): K11.20 - Sialoadenitis, unspecified Status: Acute Assessment and Plan: --------continue oral Bactrim at this time. 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 Mass palpated on exam. CT consistent with parotiditis. Could be due to chronic dehydration and poor dentition. He has been instructed to see a dentist for his oral needs. Patient was recently here 02/05 - 02/14 for this that was primarily on the left and he completed a 14-day course of at that time. Scheduled to see Dr Faulkner 02/19 -previous provider contacted the office and noted he did not come to this appointment. Continue supportive care with warm compresses, frequent suctioning, parotid massage--although hard to do because of patient's lack of cooperation. Will continue thickened liquid/pureed diet similar to last admission[place] [facility] [place] could not rule out microaspiration. He will need teeth extracted after discharge. (2) Suspected 2019 novel coronavirus infection: Code(s): Z20.828 - Contact with and (suspected) exposure to other viral communicable diseases Status: Ruled-out Assessment and Plan: -----He was tested for COVID-19 coming from [facility]. COVID-19 negative. Concerened for PNA, maybe aspiration? Will obtain lung images. I have called Dr. Villarreal about abx recs since he is on bactrim. (3) Hypertension: Qualifiers: Hypertension type: essential hypertension Qualified Code(s): I10 - Essential (primary) hypertension Code(s): I10 - Essential (primary) hypertension Status: Acute Assessment and Plan: ------BPs intermittently elevated likely secondary to discomfort, stable this afternoon. Continue his home Coreg and norvasc, monitor BP. 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 Not eating much, previously with hypoglycemia - sugars stable today. Hold DM meds.. Monitor with Accu-cheks and adjust as needed. (5) Dementia: Qualifiers: Dementia type: unspecified type Dementia behavioral disturbance: without behavioral disturbance Qualified Code(s): F03.90 - Unspecified dementia without behavioral disturbance Code(s): F03.90 - Unspecified dementia without behavioral disturbance Status: Acute Assessment and Plan: -----Continue with Namenda, depakote and lexapro. (6) COPD (chronic obstructive pulmonary disease): Qualifiers: COPD type: COPD with acute exacerbation Qualified Code(s): J44.1 - Chronic obstructive pulmonary disease with (acute) exacerbation Code(s): J44.9 - Chronic obstructive pulmonary disease, unspecified Status: Acute Assessment and Plan: ----Had COPD exacerbation during last admission. Respiratory status is stable at this point and he is tolerating room air. Continue home singular and add albuterol MDI. (7) Obstructive sleep apnea: Code(s): G47.33 - Obstructive sleep apnea (adult) (pediatric) Status: Chronic Assessment and Plan: ------continue cpap (8) Hypernatremia: Code(s): E87.0 - Hyperosmolality and hypernatremia Status: Acute Assessment and Plan: -----better today now 144. Will switch IV fluids to normal saline (was on dextrose) at 100 mils an hour as he still a little dehydrated. Continue to monitor Time Spent With Patient Time with patient: 25 - 35 minutes Subjective Date/time seen: 03/13/20 14:29 Interval history: Pt is a 84-year-old male who was seen today. Patient states that he has some abdominal pain. He also states that he is feeling a little short of breath. He denies chest pain at this time. He says he is not eating or drinking very well but the nurse aide said h
[2020-03-13 14:34] LABS: Vancomycin Trough 12.5 ug/mL (10.0-20.0)
[2020-03-13] MEDS: SODIUM CHLORIDE 0.9% IV 1,000 ML 100 ML IV CONT (16:29)
[2020-03-13] MEDS: SACCHAROMYCES BOULARDII 250 MG CAPSULE PO (17:51)
[2020-03-13 18:04] LABS: Glucose Point of Care 132 (65-105)
[2020-03-13 20:41] LABS: Glucose Point of Care 144 (65-105)
[2020-03-13] MEDS: MONTELUKAST SODIUM 10 MG TABLET PO (21:34)
[2020-03-13] MEDS: TRAZODONE HCL 50 MG TABLET PO (21:34)
[2020-03-14] VITALS (12 sets, daily range): BP systolic 105–149; BP diastolic 44–83; PULSE 59–76; RESP 16–24; TEMP 36.4–37.2; O2SAT 91–100
[2020-03-14] MEDS: SODIUM CHLORIDE 0.9% IV 1,000 ML 100 ML IV CONT (02:31)
[2020-03-14] MEDS: hydrOXYzine HCL 25 MG TABLET PO ×3 (05:35→21:42)
[2020-03-14 05:36] LABS: Alanine Aminotransferase 11 U/L (4-50); Albumin Level 2.5 g/dL (3.5-5.1); Alkaline Phosphatase 67 U/L (38-126); Aspartate Amino Transferase 23 U/L (17-59); Bilirubin,Total 0.4 mg/dL (0.2-1.3); Blood Urea Nitrogen 16 mg/dL (9-20); CRP 4.1 mg/dL (<1.0); Calcium 7.5 mg/dL (8.4-10.2); Carbon Dioxide 17 mmol/L (22-30); Chloride 118 mmol/L (98-107); Estimated CRCL calculation 55 ml/min; Estimated Glomerular Filt Rate > 60; Glucose 97 mg/dL (75-110); Potassium 3.9 mmol/L (3.4-5.0); Sodium 141 mmol/L (137-145)
[2020-03-14 05:41] LABS: Hemoglobin 10.3 g/dL (14.0-18.0); Mean Corpuscular HGB Conc 32.2 g/dl (32-36); Mean Corpuscular Hemoglobin 26.5 pg (26-34); Mean Corpuscular Volume 82.3 fl (80-100); Mean Platelet Volume 10.7 fl (7.4-10.4); Platelet Count Result 210 k/mm3 (150-375); Red Blood Count 3.89 M/mm3 (4.6-6.20); Red Cell Distribution Width 15.5 % (11.5-14.5); White Blood Count 8.5 K/mm3 (4.5-10.0)
[2020-03-14 08:31] LABS: Glucose Point of Care 90 (65-105)
[2020-03-14] MEDS: ESCITALOPRAM OXALATE 5 MG TABLET PO (10:10)
[2020-03-14] MEDS: DULOXETINE HCL 30 MG CAPSULE.DR PO ×2 (10:10→18:15)
[2020-03-14] MEDS: CALCIUM CARBONATE (OSCAL) 500 MG TABLET PO (10:11)
[2020-03-14] MEDS: carvediloL 12.5 MG TABLET PO ×2 (10:11→21:42)
[2020-03-14] MEDS: AMLODIPINE BESYLATE 5 MG TABLET 10 MG PO (10:11)
[2020-03-14] MEDS: TOPIRAMATE 25 MG TABLET 50 MG PO ×2 (10:11→18:15)
[2020-03-14] MEDS: DIVALPROEX SODIUM SPRINKLE 125 MG CAP.DR 250 MG PO ×3 (10:11→18:15)
[2020-03-14] MEDS: LIDOCAINE 5% PATCH 1 PATCH TRANSDERM (10:12)
[2020-03-14] MEDS: SACCHAROMYCES BOULARDII 250 MG CAPSULE PO ×2 (10:12→18:15)
[2020-03-14] MEDS: PANTOPRAZOLE 40 MG TABLET PO (10:12)
[2020-03-14] MEDS: MEMANTINE 10 MG TABLET PO ×2 (10:12→21:42)
[2020-03-14] MEDS: ASPIRIN 81 MG ENTERIC TABLET PO (10:12)
[2020-03-14] MEDS: FERROUS SULFATE 324 MG TABLET PO ×2 (10:13→18:15)
[2020-03-14] MEDS: TOLNAFTATE 1% POWDER 45 GM BTL 1 APPLIC TOPICAL ×2 (10:13→21:43)
[2020-03-14] MEDS: DOCUSATE SODIUM 100 MG CAPSULE PO ×2 (10:16→18:15)
[2020-03-14] MEDS: polyethylene glycoL 3350 17 GM POWD.PACK PO (10:16)
--- NOTE | 2020-03-14 11:09 | WPDGICN ---
Assessment and Plan Assessment and plan (1) Abnormal CT scan: Code(s): R93.89 - Abnormal findings on diagnostic imaging of other specified body structures Status: Acute Assessment and Plan: CT scan suggest narrowing in the midportion of the esophagus. Patient has not been eating well at the correction. Unable to give additional history. Suspect that this abnormality may contribute to his poor oral intake. Plan is for EGD to assess more thoroughly. Potentially for biopsy and potentially for dilatation of this lesion. Plan is to proceed with EGD of other medical problems appear stable in the morning. (2) Dysphagia: Code(s): R13.10 - Dysphagia, unspecified Status: Acute (3) Parotiditis: Code(s): K11.20 - Sialoadenitis, unspecified Status: Acute (4) Dementia: Qualifiers: Dementia type: unspecified type Dementia behavioral disturbance: without behavioral disturbance Qualified Code(s): F03.90 - Unspecified dementia without behavioral disturbance Code(s): F03.90 - Unspecified dementia without behavioral disturbance Status: Acute (5) Obesity (BMI 30.0-34.9): Code(s): E66.9 - Obesity, unspecified Status: Acute GI Consult Note Consult date/time: 03/14/20 11:09 HPI: Joshua Castellano is a 84 year old male seen at the request of the hospitalist service. Patient has an underlying history of dementia. A CT scan of the chest suggested thickening of the esophagus in the mid esophagus. Patient is unable to give history of difficulty swallowing. Currently a resident in a correction he has been maintained on a pureed diet. Modified barium swallow performed in recent months was unremarkable in is to be repeated. Patient admitted to the hospital with pseudoseizures. And I was found to have inflamed of his parotid gland. Because of ongoing difficulty swallowing EGD is requested to assess abnormality seen on CT scan. Review of Systems Review of Systems: ROS unobtainable: Yes unobtainable due to mental status PMFSH Past Medical History Medical History Anemia Anxiety Aortic stenosis Moderate aortic stenosis on echocardiogram in August 2016 with a valve area of 1.4 centimeter squared. Arthritis Back pain BPH (benign prostatic hyperplasia) Chronic kidney disease, stage 3 Congestive heart failure Diastolic dysfunction noted on echocardiogram in August 2016 with an ejection fraction estimated at 60%. COPD (chronic obstructive pulmonary disease) Coronary artery disease With history of [place] and stents. CVA (cerebral vascular accident) X2. Dementia Depression Diabetic neuropathy DVT (deep venous thrombosis) Left lower extremity. Hyperlipidemia Hypertension Insulin dependent type 2 diabetes mellitus MRSA infection After sinus surgery. Myocardial infarction Obstructive sleep apnea Osteoarthritis Shingles Surgical History Surgical History History of back surgery History of cardiac catheterization With stent x2. History of sinus surgery History of total bilateral knee replacement Family History Family History Father Cancer Social History Social History (Updated 03/10/20 @ 21:58 by Dotty Reeder NP) Social History: The patient lives at [facility]. His daughter, Claudia Canada, is his healthcare power of contracts attorney. He is a DNR/DNI. He is a former smoker and quit > 40 years ago. No alcohol or drug abuse. His . Smoking status: Unknown if ever smoked Alcohol intake: never Substance use: never Gender identity (if verbalized by the patient): Male Spiritual care concerns: No Agree to blood products: Yes Meds Home Medications and Allergies Home Medications Medication Instructions Recorded Confirmed Type Antacid (calcium carb-mag h
[2020-03-14 13:06] LABS: Glucose Point of Care 97 (65-105)
--- NOTE | 2020-03-14 14:12 | WPDINFPN2 ---
Progress Note: A&P Assessment and Plan (1) Parotiditis: Code(s): K11.20 - Sialoadenitis, unspecified Status: Acute Assessment and Plan: 1. Persistent parotiditis, BCs ngsf 2. Confusion due to dementia and hyponatremia, not due to sepsis 3. Mild leukocytosis, resolved REC TMP-SMX # 3 / 28 days tentatively. Tolerating the antibiotic well so far. Subjective Date/time seen: 03/14/20 14:12 Interval history: confused but conversant Exam Narrative: Exam Narrative: afebrile Const: General: no acute distress Eyes: General: appearance normal, both eyes and all related structures Other: tender R parotid, no erythema, less edema Neck: Neck: supple Resp: Effort & Inspection: normal respiratory effort Auscultation: clear to auscultation bilaterally Cardio: Rate: regular rate Rhythm: regular rhythm Heart sounds: no murmurs GI: Inspection: non-distended GI Palp: Yes Soft to palpation and No Tenderness to palpation present (GI) Skin: General skin exam: normal color and no rashes or lesions noted Objective Data Vital Signs Vital Signs: Vital Signs - 24 hr 03/13/20 14:39 03/13/20 20:10 03/13/20 21:15 Temperature 36.6 C Pulse Rate 78 76 Respiratory Rate 16 13 Blood Pressure 133/81 140/66 Pulse Oximetry 99 03/13/20 21:34 03/13/20 22:00 03/13/20 23:56 Temperature 37.3 C Pulse Rate 76 76 68 Respiratory Rate 16 19 Blood Pressure 156/65 H Pulse Oximetry 96 92 03/14/20 02:33 03/14/20 02:45 03/14/20 06:34 Temperature 36.4 C 37.1 C Pulse Rate 68 59 L 76 Respiratory Rate 17 16 16 Blood Pressure 116/44 L 149/77 H Pulse Oximetry 91 97 96 03/14/20 10:00 03/14/20 10:11 Temperature 36.7 C Pulse Rate 66 76 Respiratory Rate 24 H Blood Pressure 127/83 Pulse Oximetry 100 Intake/Output Intake/Output: Intake & Output 03/11/20 03/12/20 03/13/20 03/14/20 23:59 23:59 23:59 23:59 Intake Total 2810 2790 3047 1830 Balance 2810 2790 3047 1830 Meds/Results Medications: Active Medications Generic Name Dose Route Start Last Admin Trade Name Freq PRN Reason Stop Dose Admin Albuterol 2 puff 03/11/20 11:00 03/13/20 12:28 Proventil Hfa INHALATION 2 puff QIDRT PRN Administration Shortness Of Breath Amlodipine Besylate 10 mg 03/11/20 09:00 03/14/20 10:11 Norvasc PO 10 mg DAILY JOSIAH Administration Aspirin 81 mg 03/11/20 09:00 03/14/20 10:12 Aspirin Ec PO 81 mg DAILY JOSIAH Administration Bisacodyl 10 mg 03/10/20 21:45 Dulcolax Tab PO DAILY PRN Constipation Butalbital/Aspirin/Caffeine 1 cap 03/10/20 23:41 Fioricet Capsule PO Q4H PRN Headache Calcium Carbonate 500 mg 03/11/20 09:00 03/14/20 10:11 Oscal 500 Mg PO 500 mg QAM JOSIAH Administration Carvedilol 12.5 mg 03/10/20 21:00 03/14/20 10:11 Coreg PO 12.5 mg Q12HR JOSIAH Administration Dextrose 12.5 gm 03/10/20 22:01 Dextrose 50% Syringe IV PUSH PRN PRN Hypoglycemia Protocol Divalproex Sodium 250 mg 03/11/20 09:00 03/14/20 12:54 Depakote Sprinkle PO 250 mg TID JOSIAH Administration Docusate Sodium 100 mg 03/11/20 09:00 03/14/20 10:16 Colace Capsule PO 100 mg BID JOSIAH Administration Duloxetine HCl 30 mg 03/11/20 09:00 03/14/20 10:10 Cymbalta PO 30 mg BID JOSIAH Administration Escitalopram Oxalate 5 mg 03/11/20 09:00 03/14/20 10:10 Lexapro PO 5 mg DAILY JOSIAH Administration Fentanyl Citrate 25 mcg 03/10/20 22:02 Sublimaze IV PUSH Q4H PRN Pain Rated 7-10 Ferrous Sulfate 324 mg 03/11/20 08:00 03/14/20 10:13 Ferrous Sulfate PO 324 mg BIDWM JOSIAH Administration Glucagon 1 mg 03/10/20 22:01 Glucagon For Inj IM PRN PRN Hypoglycemia Protocol Glucose 15 gm 03/10/20 22:01 Glutose 15 PO PRN PRN Hypoglycemia Protocol Hydroxyzine HCl 25 mg 03/10/20 22:00 03/14/20 12:54 Atarax Tablet PO 25 mg Q8HR JOSIAH
--- NOTE | 2020-03-14 15:16 | PC.NURSE ---
patient going to [facility]BS per chair.
--- NOTE | 2020-03-14 16:03 | PM.IMPN ---
Progress Note: A&P Assessment and Plan (1) Parotiditis: Code(s): K11.20 - Sialoadenitis, unspecified Status: Acute Assessment and Plan: --------continue oral Bactrim at this time. 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 Mass palpated on exam. CT consistent with parotiditis. Could be due to chronic dehydration and poor dentition. He has been instructed to see a dentist for his oral needs. Patient was recently here 02/05 - 02/14 for this that was primarily on the left and he completed a 14-day course of abx at that time. Scheduled to see Dr Faulkner 02/19 -previous provider contacted the office and noted he did not come to this appointment. Continue supportive care with warm compresses, frequent suctioning, parotid massage--although hard to do because of patient's lack of cooperation. Will continue thickened liquid/pureed diet similar to last admission. [facility] [place] 02[place]14 could not rule out microaspiration. He will need teeth extracted after discharge. (2) Suspected 2019 novel coronavirus infection: Code(s): Z20.828 - Contact with and (suspected) exposure to other viral communicable diseases Status: Ruled-out Assessment and Plan: -----He was tested for COVID-19 coming from [facility] [facility] COVID-19 negative. (3) Hypertension: Qualifiers: Hypertension type: essential hypertension Qualified Code(s): I10 - Essential (primary) hypertension Code(s): I10 - Essential (primary) hypertension Status: Acute Assessment and Plan: ------BPs intermittently elevated likely secondary to discomfort, stable this afternoon. Continue his home Coreg and [facility], monitor BP. 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 Not eating much, previously with hypoglycemia - sugars stable today. Hold DM meds.. Monitor with Accu-cheks and adjust as needed. (5) Dementia: Qualifiers: Dementia type: unspecified type Dementia behavioral disturbance: without behavioral disturbance Qualified Code(s): F03.90 - Unspecified dementia without behavioral disturbance Code(s): F03.90 - Unspecified dementia without behavioral disturbance Status: Acute Assessment and Plan: -----Continue with Namenda, depakote and lexapro. (6) COPD (chronic obstructive pulmonary disease): Qualifiers: COPD type: COPD with acute exacerbation Qualified Code(s): J44.1 - Chronic obstructive pulmonary disease with (acute) exacerbation Code(s): J44.9 - Chronic obstructive pulmonary disease, unspecified Status: Acute Assessment and Plan: ----Had COPD exacerbation during last admission. Respiratory status is stable at this point and he is tolerating room air. Continue home singular and add albuterol MDI. (7) Obstructive sleep apnea: Code(s): G47.33 - Obstructive sleep apnea (adult) (pediatric) Status: Chronic Assessment and Plan: ------continue cpap (8) Hypernatremia: Code(s): E87.0 - Hyperosmolality and hypernatremia Status: Acute Assessment and Plan: -----better today now 141. Fluids have been stop, encouraging oral hydration. (9) Dysphagia: Code(s): R13.10 - Dysphagia, unspecified Status: Acute Assessment and Plan: -----the patient has a history of dysphagia and with his advanced dementia, dysphagia is likely. He has been having occasional rhonchi in his lungs and I suspect this is due to intermittent aspiration. I have asked speech therapy to see the patient and do a modified barium swallow. He is also going to get an EGD tomorrow because of some concerning findings on the CT scan. Will call the family tomorrow with the results of both of these and make a plan from there. (
--- NOTE | 2020-03-14 17:21 | PCSTNOTE ---
Please refer to the Modified Barium Swallow Evaluation in the EMR.
[2020-03-14 17:41] LABS: Glucose Point of Care 126 (65-105)
[2020-03-14] MEDS: LACTATED RINGERS 1,000 ML 100 ML IV CONT (18:12)
--- NOTE | 2020-03-14 18:33 | PC.NURSE ---
attempted to straight cath patient. unable to advance catheter r/t being unable to retract the foreskin. condom cath placed to attempt to get ua/ur
[2020-03-14] MEDS: ALBUTEROL SULFATE NEB 2.5 MG/0.5 ML INH INHALATION (19:15)
[2020-03-14] MEDS: MONTELUKAST SODIUM 10 MG TABLET PO (21:42)
[2020-03-14] MEDS: TRAZODONE HCL 50 MG TABLET PO (21:43)
[2020-03-15] VITALS (18 sets, daily range): BP systolic 109–156; BP diastolic 56–85; PULSE 64–104; RESP 16–20; TEMP 35.8–37.3; O2SAT 96–100
[2020-03-15 04:08] LABS: Glucose Point of Care 104 (65-105)
[2020-03-15] MEDS: LACTATED RINGERS 1,000 ML 100 ML IV CONT (04:08)
[2020-03-15] MEDS: hydrOXYzine HCL 25 MG TABLET PO ×3 (05:45→23:23)
[2020-03-15 07:47] LABS: Hematocrit 33.3 % (42.0-52.0); Hemoglobin 10.7 g/dL (14.0-18.0); Mean Corpuscular HGB Conc 32.1 g/dl (32-36); Mean Corpuscular Hemoglobin 26.6 pg (26-34); Mean Corpuscular Volume 82.6 fl (80-100); Mean Platelet Volume 10.3 fl (7.4-10.4); Platelet Count Result 242 k/mm3 (150-375); Red Blood Count 4.03 M/mm3 (4.6-6.20); Red Cell Distribution Width 15.4 % (11.5-14.5); White Blood Count 9.6 K/mm3 (4.5-10.0)
[2020-03-15 08:18] LABS: Alanine Aminotransferase 12 U/L (4-50); Albumin Level 2.7 g/dL (3.5-5.1); Alkaline Phosphatase 66 U/L (38-126); Aspartate Amino Transferase 39 U/L (17-59); Bilirubin,Total 0.5 mg/dL (0.2-1.3); Blood Urea Nitrogen 14 mg/dL (9-20); Calcium 8.2 mg/dL (8.4-10.2); Carbon Dioxide 18 mmol/L (22-30); Chloride 115 mmol/L (98-107); Estimated CRCL calculation 55 ml/min; Estimated Glomerular Filt Rate > 60; Glucose 91 mg/dL (75-110); Potassium 4.6 mmol/L (3.4-5.0); Sodium 138 mmol/L (137-145)
--- NOTE | 2020-03-15 08:35 | PC.NURSE ---
patient going to GI lab for EGD per anne marie. Report given to Fannie.
--- NOTE | 2020-03-15 09:30 | WPDANESEPPF ---
Anes - Initial Pre Proc Eval Procedure: Operation Date: 03/15/20 09:30 Proposed Procedures p Esophagogastroduodenoscopy - Jose Juan Mahoney MD Date/Time: 03/15/20 09:30 Surgeon: Luciana Giraldo PA-C Pre Op Diagnosis: pseudoseizures Patient Data Age: 84 Gender: M Height: 5 ft 6 in Weight: 101.3 kg Last Vital Signs Temp 37.3 C 03/15/20 08:58 Pulse 65 03/15/20 08:58 Resp 18 03/15/20 08:58 BP 145/73 H 03/15/20 08:58 Pulse Ox 98 03/15/20 08:58 Allergies Allergy/AdvReac Type Severity Reaction Status Date / Time lisinopril Allergy Severe Swelling Verified 03/15/20 08:56 cefuroxime Allergy Unknown Unknown Verified 03/15/20 08:56 Home Medications Medication Instructions Recorded Confirmed Type Antacid (calcium carb-mag hyd) 1 tablet PO TID PRN 02/06/20 03/10/20 History Levemir FlexTouch U-100 Insuln 25 unit SUBCUT HS 02/06/20 03/10/20 History Mucinex DM 1 tablet PO Q12H PRN 02/06/20 03/10/20 History acetaminophen 500 mg PO Q4H PRN 02/06/20 03/10/20 History amlodipine 10 mg PO DAILY 02/06/20 03/10/20 History ascorbic acid (vitamin C) 500 mg PO BID 02/06/20 03/10/20 History aspirin 81 mg PO DAILY 02/06/20 03/10/20 History bisacodyl 10 mg PO DAILY PRN 02/06/20 03/10/20 History budesonide 0.5 mg INHALATION BID 02/06/20 03/10/20 History hedhrctysq-ojhduosomhiav-gtxp 1 cap PO Q4H PRN 02/06/20 03/10/20 History [Esgic] calcium carbonate [Calcium 600] 600 mg PO DAILY 02/06/20 03/10/20 History carvedilol 12.5 mg PO BID 02/06/20 03/10/20 History cholecalciferol (vitamin D3) 25 mcg PO DAILY 02/06/20 03/10/20 History divalproex 250 mg PO TID 02/06/20 03/10/20 History docusate sodium [Colace] 100 mg PO BID 02/06/20 03/10/20 History duloxetine 30 mg PO BID 02/06/20 03/10/20 History escitalopram oxalate 5 mg PO DAILY 02/06/20 03/10/20 History ferrous sulfate 325 mg PO BID 02/06/20 03/10/20 History hydroxyzine HCl 25 mg PO TID 02/06/20 03/10/20 History insulin lispro [Humalog KwikPen See Protocol SUBCUT TID 02/06/20 03/10/20 History Insulin] ipratropium-albuterol 3 ml INHALATION QID PRN 02/06/20 03/10/20 History lidocaine [Aspercreme (lidocaine)] 1 patch TOPICAL Q12H 02/06/20 03/10/20 History magnesium hydroxide [Milk of 30 ml PO DAILY PRN 02/06/20 03/10/20 History Magnesia] memantine 10 mg PO BID 02/06/20 03/10/20 History metformin 500 mg PO BID 02/06/20 03/10/20 History montelukast 10 mg PO HS 02/06/20 03/10/20 History ondansetron HCl [Zofran] 4 mg PO Q6H PRN 02/06/20 03/10/20 History pantoprazole 40 mg PO DAILY 02/06/20 03/10/20 History polyethylene glycol 3350 [Miralax] 17 g PO DAILY 02/06/20 03/10/20 History topiramate 50 mg PO BID 02/06/20 03/10/20 History trazodone 50 mg PO HS 02/06/20 03/10/20 History saliva substitute combo no.9 15 ml PO QID PRN #1000 ml 02/15/20 03/10/20 Rx [Biotene Dry Mouth Oral Rinse] tramadol 50 mg tablet 50 mg PO QID #120 tablet 03/07/20 03/10/20 Rx megestrol [Megace ES] 625 mg PO DAILY 03/10/20 03/10/20 History Laboratory Tests 03/14/20 03/14/20 03/14/20 12:03 17:37 18:24 WBC RBC Hgb Hct MCV MCH MCHC RDW Plt Count MPV Sodium Potassium Chloride Carbon Dioxide BUN Creatinine Estim Creat Clear Calc Estimated GFR Glucose POC Capillary Glucose 97 mg/dl mg/dl 126 mg/dl H mg/dl (65-105) (65-105) Calcium Total Bilirubin Direct Bilirubin AST ALT Alkaline Phosphatase Total Protein Albumin Urine Color Cancelled Urine Appearance Cancelled Urine pH Cancelled Ur Specific [place] Cancelled Urine Protein Cancelled Urine Glucose (UA) Cancelled Urine Ketones Can
[2020-03-15] MEDS: LACTATED RINGERS 1,000 ML 150 ML IV CONT (09:56)
[2020-03-15 11:00] LABS: Glucose Point of Care 75 (65-105)
--- NOTE | 2020-03-15 11:28 | ECG_ITS ---
Measurements Intervals [place] Rate: 65 P: 52 NV: 180 QRS: -36 QRSD: 106 T: -4 QT: 417 QTc: 434 Interpretive Statements SINUS RHYTHM VENTRICULAR PREMATURE COMPLEX LEFT AXIS DEVIATION BORDERLINE T WAVE ABNORMALITY- INFERIOR LEADS BASELINE ARTIFACT- II, III, V1, V4-V6 BORDERLINE ECG Electronically Signed On 03-15-2020 12:12:12 CDT by Mynor Rey D.O.
--- NOTE | 2020-03-15 11:52 | PCSTNOTE ---
Attempted ST this am but pt was out of room for procedure; ST will try again this pm.
--- NOTE | 2020-03-15 12:13 | WPDANESPN ---
Anes - Prog Note Post-Op Date/Time: 03/15/20 12:13 Cardiovascular status: normal Respiratory status: normal Airway patency: baseline Mental status: baseline Post-Op hydration status: normal Vital Signs: Last Vital Signs Temp 37.3 C 03/15/20 08:58 Pulse 65 03/15/20 10:32 Resp 16 03/15/20 10:32 BP 133/61 03/15/20 10:32 Pulse Ox 99 03/15/20 10:32 I/O: Intake & Output 03/14/20 03/15/20 03/15/20 23:59 07:59 15:59 Intake Total 640 1000 100 Balance 640 1000 100 Laboratory Tests 03/15/20 07:40 03/15/20 07:40 03/14/20 03/14/20 03/14/20 12:03 17:37 18:24 WBC RBC Hgb Hct MCV MCH MCHC RDW Plt Count MPV Sodium Potassium Chloride Carbon Dioxide BUN Creatinine Estim Creat Clear Calc Estimated GFR Glucose POC Capillary Glucose 97 126 H Calcium Total Bilirubin Direct Bilirubin AST ALT Alkaline Phosphatase Total Protein Albumin Urine Color Cancelled Urine Appearance Cancelled Urine pH Cancelled Ur Specific [place] Cancelled Urine Protein Cancelled Urine Glucose (UA) Cancelled Urine Ketones Cancelled Ur Blood (Man) Cancelled Urine Nitrate Cancelled Urine Bilirubin Cancelled Urine Urobilinogen Cancelled Leukocyte Esterase Rfl Cancelled Urine RBC Cancelled Urine WBC Cancelled Urine WBC Clumps Cancelled Ur Squamous Epith Cells Cancelled Ur Transition Epith Cell Cancelled Ur Renal Epithelial Cell Cancelled [place] Biurate Crystals Cancelled Calcium Carbonate Cryst Cancelled Calcium Phosphate Cryst Cancelled Calcium Oxalate Crystal Cancelled Leucine Crystals Cancelled Cystine Crystals Cancelled Uric Acid Crystals Cancelled Triple Phos Crystals Cancelled Sulfonamide Crystals Cancelled Cholesterol Crystals Cancelled Talc Crystals Cancelled Tyrosine Crystals Cancelled Hippuric Acid Crystals Cancelled Other Crystals Cancelled Amorphous Sediment Cancelled Other Sediment Cancelled Urine Bacteria Cancelled Cellular Casts Cancelled Epithelial Casts Cancelled Fatty Casts Cancelled Hyaline Casts Cancelled Granular Casts Cancelled Waxy Casts Cancelled RBC Casts Cancelled WBC Casts Cancelled Urine Starch Cancelled Urine Mucus Cancelled Urine Trichomonas Cancelled Urine Yeast (Budding) Cancelled Ur Oval Fat Bodies Cancelled 03/14/20 03/15/20 03/15/20 21:59 07:40 07:40 WBC 9.6 RBC 4.03 L Hgb 10.7 L Hct 33.3 L MCV 82.6 MCH 26.6 MCHC 32.1 RDW 15.4 H Plt Count 242 MPV 10.3 Sodium 138 Potassium 4.6 Chloride 115 H Carbon Dioxide 18 L BUN 14 Creatinine 1.00 Estim Creat Clear Calc 55 Estimated GFR > 60 Glucose 91 POC Capillary Glucose 104 Calcium 8.2 L Total Bilirubin 0.5 Direct Bilirubin 0.0 AST 39 ALT 12 Alkaline Phosphatase 66 Total Protein 6.0 L Albumin 2.7 L Urine Color Urine Appearance Urine pH Ur Specific [place] Urine Protein Urine Glucose (UA) Urine Ketones Ur Blood (Man) Urine Nitrate Urine Bilirubin Urine Urobilinogen Leukocyte Esterase Rfl Urine RBC Urine WBC Urine WBC Clumps Ur Squamous Epith Cells Ur Transition Epith Cell Ur Renal Epithelial Cell Flo Biurate Crystals Calcium Carbonate Cryst Calcium Phosphate Cryst Calcium Oxalate Crystal Leucine Crystals Cystine Crystals Uric Acid Crystals Triple Phos Crystals Sulfonamide Crystals Cholesterol Crystals Talc Crystals Tyrosine Crystals Hippuric Acid Crystals Other Crystals Amorphous Sediment Other Sediment Urine Bacteria Cellular Casts Epithelial Casts Fatty Casts Hyaline Casts Granular Casts Waxy Casts RBC Casts WBC Casts Urine Starch Urine Mucus
--- NOTE | 2020-03-15 13:15 | PM.IMPN ---
Progress Note: A&P Assessment and Plan (1) Parotiditis: Code(s): K11.20 - Sialoadenitis, unspecified Status: Acute Assessment and Plan: --------continue oral Bactrim at this time. 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 Mass palpated on exam. CT consistent with parotiditis. Could be due to chronic dehydration and poor dentition. He has been instructed to see a dentist for his oral needs. Patient was recently here 02/05 - 02/14 for this that was primarily on the left and he completed a 14-day course of abx at that time. Scheduled to see Dr Faulkner 02/19 -previous provider contacted the office and noted he did not come to this appointment and daughter states its because of the COVID pandemic. Continue supportive care with warm compresses, frequent suctioning, parotid massage--although hard to do because of patient's lack of cooperation. Will continue thickened liquid/pureed diet similar to last admission. Likely d/c tomorrow to [place]. (2) Suspected 2019 novel coronavirus infection: Code(s): Z20.828 - Contact with and (suspected) exposure to other viral communicable diseases Status: Ruled-out Assessment and Plan: -----He was tested for COVID-19 coming from [facility]. COVID-19 negative. [place] requiring another test before discharge. This has been placed. (3) Hypertension: Qualifiers: Hypertension type: essential hypertension Qualified Code(s): I10 - Essential (primary) hypertension Code(s): I10 - Essential (primary) hypertension Status: Acute Assessment and Plan: ------BPs intermittently elevated likely secondary to discomfort, stable this afternoon. Continue his home Coreg and norvas, monitor BP. (4) Insulin dependent type 2 diabetes mellitus: Code(s): E11.9 - Type 2 diabetes mellitus without complications; Z79.4 - intermediate (current) use of insulin Status: Chronic Assessment and Plan: -----A1c 6.2 one month ago. Not eating much, previously with hypoglycemia - sugars stable today. Hold DM meds.. Monitor with Accu-cheks and adjust as needed. (5) Dementia: Qualifiers: Dementia type: unspecified type Dementia behavioral disturbance: without behavioral disturbance Qualified Code(s): F03.90 - Unspecified dementia without behavioral disturbance Code(s): F03.90 - Unspecified dementia without behavioral disturbance Status: Acute Assessment and Plan: -----Continue with Namenda, depakote and lexapro. (6) COPD (chronic obstructive pulmonary disease): Qualifiers: COPD type: COPD with acute exacerbation Qualified Code(s): J44.1 - Chronic obstructive pulmonary disease with (acute) exacerbation Code(s): J44.9 - Chronic obstructive pulmonary disease, unspecified Status: Acute Assessment and Plan: ----Had COPD exacerbation during last admission. Respiratory status is stable at this point and he is tolerating room air. Continue home singular and add albuterol MDI. (7) Obstructive sleep apnea: Code(s): G47.33 - Obstructive sleep apnea (adult) (pediatric) Status: Chronic Assessment and Plan: ------continue cpap (8) Hypernatremia: Code(s): E87.0 - Hyperosmolality and hypernatremia Status: Acute Assessment and Plan: -----better today now 138. Fluids have been stop, encouraging oral hydration. (9) Dysphagia: Code(s): R13.10 - Dysphagia, unspecified Status: Acute Assessment and Plan: -----the patient has a history of dysphagia with his dementia. I had a long discussion with his daughter today about the findings of the MBS and his risk for aspiration, pneumonitis, and . We also talked about the disease progression. At this time she knows the risks but wants him to continue eating for quality of life. She wants to hold off on hospice at this time but understands she can call the NH at any t
[2020-03-15] MEDS: DIVALPROEX SODIUM SPRINKLE 125 MG CAP.DR 250 MG PO ×2 (13:54→18:43)
[2020-03-15] MEDS: ESCITALOPRAM OXALATE 5 MG TABLET PO (13:55)
[2020-03-15] MEDS: SACCHAROMYCES BOULARDII 250 MG CAPSULE PO ×2 (13:55→18:44)
[2020-03-15] MEDS: PANTOPRAZOLE 40 MG TABLET PO (13:55)
[2020-03-15] MEDS: AMLODIPINE BESYLATE 5 MG TABLET 10 MG PO (13:55)
[2020-03-15] MEDS: TOPIRAMATE 25 MG TABLET 50 MG PO ×2 (13:55→21:12)
[2020-03-15] MEDS: FERROUS SULFATE 324 MG TABLET PO ×2 (13:56→21:15)
[2020-03-15] MEDS: ASPIRIN 81 MG ENTERIC TABLET PO (13:56)
[2020-03-15] MEDS: MEMANTINE 10 MG TABLET PO ×2 (13:56→23:20)
[2020-03-15] MEDS: DULOXETINE HCL 30 MG CAPSULE.DR PO ×2 (13:56→18:43)
[2020-03-15] MEDS: CALCIUM CARBONATE (OSCAL) 500 MG TABLET PO (13:57)
[2020-03-15] MEDS: LIDOCAINE 5% PATCH 1 PATCH TRANSDERM (13:57)
[2020-03-15] MEDS: TOLNAFTATE 1% POWDER 45 GM BTL 1 APPLIC TOPICAL ×2 (13:58→21:11)
[2020-03-15] MEDS: MAGNESIUM HYDROXIDE SUSP 30 ML UDC PO (14:01)
[2020-03-15] MEDS: carvediloL 12.5 MG TABLET PO ×2 (14:11→23:19)
--- NOTE | 2020-03-15 14:39 | WPDINFPN2 ---
Progress Note: A&P Assessment and Plan (1) Parotiditis: Code(s): K11.20 - Sialoadenitis, unspecified Status: Acute Assessment and Plan: 1. Persistent parotiditis, BCs ngsf 2. Confusion due to dementia and hyponatremia, not due to sepsis 3. Mild leukocytosis, resolved REC TMP-SMX # 4 / 28 days tentatively. Tolerating the antibiotic well so far. Subjective Date/time seen: 03/15/20 14:39 Interval history: confused Exam Narrative: Exam Narrative: afebrile Const: General: no acute distress HENMT: Other: edema R parotid is less since yesterday. No erythema. Tenderness also is less Objective Data Vital Signs Vital Signs: Vital Signs - 24 hr 03/14/20 18:00 03/14/20 19:15 03/14/20 19:25 Temperature 37.2 C Pulse Rate 74 68 68 Respiratory Rate 20 Blood Pressure 105/76 Pulse Oximetry 100 03/14/20 21:42 03/14/20 22:00 03/14/20 22:21 Temperature 37.1 C Pulse Rate 66 67 64 Respiratory Rate 20 19 Blood Pressure 141/60 H Pulse Oximetry 98 96 03/15/20 02:00 03/15/20 02:12 03/15/20 06:00 Temperature 36.5 C 36.6 C Pulse Rate 67 68 70 Respiratory Rate 20 18 20 Blood Pressure 136/82 143/85 H Pulse Oximetry 100 96 100 03/15/20 08:58 03/15/20 10:12 03/15/20 10:22 Temperature 37.3 C Pulse Rate 65 67 65 Respiratory Rate 18 19 16 Blood Pressure 145/73 H 117/56 L 132/56 L Pulse Oximetry 98 98 97 03/15/20 10:32 03/15/20 14:11 Temperature Pulse Rate 65 80 Respiratory Rate 16 Blood Pressure 133/61 Pulse Oximetry 99 Intake/Output Intake/Output: Intake & Output 03/12/20 03/13/20 03/14/20 03/15/20 23:59 23:59 23:59 23:59 Intake Total 2790 3047 2710 1100 Balance 2790 3047 2710 1100 Meds/Results Medications: Active Medications Generic Name Dose Route Start Last Admin Trade Name Freq PRN Reason Stop Dose Admin Albuterol 2 puff 03/11/20 11:00 03/13/20 12:28 Proventil Hfa INHALATION 2 puff QIDRT PRN Administration Shortness Of Breath Albuterol 2.5 mg 03/14/20 20:00 03/15/20 08:35 Albuterol Sulf Neb 2.5mg/0.5ml INHALATION Not Given [id number] SCH Amlodipine Besylate 10 mg 03/11/20 09:00 03/15/20 13:55 Norvasc PO 10 mg DAILY JOSIAH Administration Aspirin 81 mg 03/11/20 09:00 03/15/20 13:56 Aspirin Ec PO 81 mg DAILY [facility] Administration Bisacodyl 10 mg 03/10/20 21:45 Dulcolax Tab PO DAILY PRN Constipation Butalbital/Aspirin/Caffeine 1 cap 03/10/20 23:41 Fioricet Capsule PO Q4H PRN Headache Calcium Carbonate 500 mg 03/11/20 09:00 03/15/20 13:57 Oscal 500 Mg PO 500 mg QAM [facility] Administration Carvedilol 12.5 mg 03/10/20 21:00 03/15/20 14:11 Coreg PO 12.5 mg Q12HR [facility] Administration Dextrose 12.5 gm 03/10/20 22:01 Dextrose 50% Syringe IV PUSH PRN PRN Hypoglycemia Protocol Divalproex Sodium 250 mg 03/11/20 09:00 03/15/20 13:54 Depakote Sprinkle PO 250 mg TID [facility] Administration Docusate Sodium 100 mg 03/11/20 09:00 03/14/20 18:15 Colace Capsule PO 100 mg BID [facility] Administration Duloxetine HCl 30 mg 03/11/20 09:00 03/15/20 13:56 Cymbalta PO 30 mg BID [facility] Administration Escitalopram Oxalate 5 mg 03/11/20 09:00 03/15/20 13:55 Lexapro PO 5 mg DAILY [facility] Administration Fentanyl Citrate 25 mcg 03/10/20 22:02 03/14/20 21:54 Sublimaze IV PUSH 25 mcg Q4H PRN Administration Pain Rated 7-10 Ferrous Sulfate 324 mg 03/11/20 08:00 03/15/20 13:56 Ferrous Sulfate PO 324 mg BIDWM [facility] Administration Glucagon 1 mg 03/10/20 22:01 Glucagon For Inj IM PRN PRN Hypoglycemia Protocol Glucose 15 gm 03/10/20 22:01 Glutose 15 PO PRN PRN Hypoglycemia Protocol Hydroxyzine HCl 25 mg 03/10/20 22:00 03/15/20 14:01 Atarax Tablet PO 25 mg Q8HR JOSIAH Administration Dextrose 1,000 mls @ 100 mls/hr 03/10/20 22:01 Dextrose 5% 1,000 Ml I
[2020-03-15] MEDS: ALBUTEROL SULFATE NEB 2.5 MG/0.5 ML INH INHALATION ×2 (15:05→20:35)
[2020-03-15 17:10] LABS: Troponin I 0.013 ng/mL (0.000-0.034)
[2020-03-15 18:37] LABS: Glucose Point of Care 109 (65-105)
--- NOTE | 2020-03-15 18:40 | WPDURCON ---
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 If obtaining urine is imperative, other options include (in order of preference): 1. Place a condom catheter for a few hours. 2. Ultrasound-guided suprapubic aspiration. 3. Circumcision under anesthesia. Urology Consult Note HPI Date Seen: 03/15/20 Requesting Physician: Luciana Giraldo PA-C Primary Care Provider: Luciano Schaefer MD Consult Narrative Narrative: Joshua Castellano is a 84 year old male who I know from consultation on one occassion in 08/2017 when he, at that time, was found to have SEVERE phimosis. He's demented and incontinent - voids into a diaper. He's never had clinical or imaging signs of retention. CT abd/pelvis this admission shows a decompressed bladder. To my knowledge he's not troubled with recurrent UTI's. He's admitted on this occasion with a salivary gland infection. Yesterday, for reasons I can't really figure out, a u/a with culture was ordered by someone and the nurses have been unable to obtain either by voiding or attempts at catheterization. Review of Systems Review of Systems: ROS unobtainable: Yes unobtainable due to mental status PMFSH Past Medical History Medical History Anemia Anxiety Aortic stenosis Moderate aortic stenosis on echocardiogram in August 2016 with a valve area of 1.4 centimeter squared. Arthritis Back pain BPH (benign prostatic hyperplasia) Chronic kidney disease, stage 3 Congestive heart failure Diastolic dysfunction noted on echocardiogram in August 2016 with an ejection fraction estimated at 60%. COPD (chronic obstructive pulmonary disease) Coronary artery disease With history of VA and stents. CVA (cerebral vascular accident) X2. Dementia Depression Diabetic neuropathy DVT (deep venous thrombosis) Left lower extremity. Hyperlipidemia Hypertension Insulin dependent type 2 diabetes mellitus MRSA infection After sinus surgery. Myocardial infarction Obstructive sleep apnea Osteoarthritis Shingles Surgical History Surgical History History of back surgery History of cardiac catheterization With stent x2. History of sinus surgery History of total bilateral knee replacement Family History Family History Father Cancer Social History Social History Social History: The patient lives at [facility]. His daughter, Claudia Canada, is his healthcare power of replanting machine operator. He is a DNR/DNI. He is a former smoker and quit > 40 years ago. No alcohol or drug abuse. His . Smoking status: Unknown if ever smoked Alcohol intake: never Substance use: never Gender identity (if verbalized by the patient): Male Spiritual care concerns: No Agree to blood products: Yes Meds Home Medications and Allergies Home Medications Medication Instructions Recorded Confirmed Type Antacid (calcium carb-mag hyd) 1 tablet PO TID PRN 02/06/20 03/10/20 History Levemir FlexTouch U-100 Insuln 25 unit SUBCUT HS 02/06/20 03/10/20 History Mucinex DM 1 tablet PO Q12H PRN 02/06/20 03/10/20 History acetaminophen 500 mg PO Q4H PRN 02/06/20 03/10/20 History amlodipine 10 mg PO DAILY 02/06/20 03/10/20 History ascorbic acid (vitamin C) 500 mg PO BID 02/06/20 03/10/20 History aspirin 81 mg PO DAILY 02/06/20 03/10/20 History bisacodyl 10 mg PO DAILY PRN 02/06/20 03/10/20 History budesonide 0.5 mg INHALATION BID 02/06/20 03/10/20 History [id number] 1 cap PO Q4H PRN 02/06/20 03/10/20 History [Esgic] calcium carbonate [Calcium 600] 600 mg PO DAILY 02/06/20
[2020-03-15] MEDS: polyethylene glycoL 3350 17 GM POWD.PACK PO (18:42)
[2020-03-15] MEDS: DOCUSATE SODIUM 100 MG CAPSULE PO (18:42)
--- NOTE | 2020-03-15 20:22 | PC.NURSE ---
At 0900, Luciana called to ask about pt's urine collection. I informed her that they were not able to collect it previously with a straight cath, but they had tried placing a condom catheter which he pulled off. She didn't want a condom cath because she wanted a very clean specimen. I let her know I would try. She said to use a coude or call urology if needed. Pt was taken to GI lab for EGD before I could obtain specimen. When Luciana had seen the pt, she stated she wanted the milk of mag given, the UA specimen collected, and stat EKG and trop. She stated again to Natasha that we need to call urology if needed. When he returned, I tried to use a straight cath and then a coude, both with Natasha's assistance. We were unsuccessful. Starl[place]yla, tried with Natasha's assistance and was unsuccessful. Starla Kelsey tried and also was unsuccessful. Around [phone], Natasha called a consult to urology for a straight cath for a urine specimen. Dr. Hyman came up to the floor after 1600. Marychuy had gotten the cart to the room. He attempted several times, left the room, came back and shut the door. At some point he left again. I did not hear from him (nor did anyone else) or see a specimen. Left the cart in the room in case he would return again. Cleaned pt up, re-covered him, and cleaned up the room.
[2020-03-15] MEDS: MONTELUKAST SODIUM 10 MG TABLET PO (21:11)
[2020-03-15] MEDS: TRAZODONE HCL 50 MG TABLET PO (21:12)
[2020-03-15 21:26] LABS: Glucose Point of Care 82 (65-105)
[2020-03-16] VITALS (17 sets, daily range): BP systolic 124–153; BP diastolic 54–78; PULSE 64–78; RESP 14–21; TEMP 36.4–36.9; O2SAT 94–100
[2020-03-16 03:41] LABS: Glucose Point of Care 89 (65-105)
[2020-03-16] MEDS: hydrOXYzine HCL 25 MG TABLET PO ×3 (06:26→20:28)
[2020-03-16 06:35] LABS: Hematocrit 31.4 % (42.0-52.0); Hemoglobin 10.1 g/dL (14.0-18.0)
[2020-03-16 06:55] LABS: Blood Urea Nitrogen 11 mg/dL (9-20); Calcium 7.9 mg/dL (8.4-10.2); Carbon Dioxide 18 mmol/L (22-30); Chloride 114 mmol/L (98-107); Estimated CRCL calculation 55 ml/min; Estimated Glomerular Filt Rate > 60; Glucose 94 mg/dL (75-110); Sodium 138 mmol/L (137-145)
[2020-03-16] MEDS: ALBUTEROL SULFATE NEB 2.5 MG/0.5 ML INH INHALATION ×3 (08:31→19:50)
[2020-03-16] MEDS: TOPIRAMATE 25 MG TABLET 50 MG PO ×2 (09:00→20:24)
[2020-03-16] MEDS: DOCUSATE SODIUM 100 MG CAPSULE PO ×2 (09:45→17:35)
[2020-03-16] MEDS: polyethylene glycoL 3350 17 GM POWD.PACK PO (09:45)
[2020-03-16] MEDS: LIDOCAINE 5% PATCH 1 PATCH TRANSDERM (09:45)
[2020-03-16] MEDS: DULOXETINE HCL 30 MG CAPSULE.DR PO ×2 (09:48→18:05)
[2020-03-16] MEDS: DIVALPROEX SODIUM SPRINKLE 125 MG CAP.DR 250 MG PO ×3 (09:48→18:05)
[2020-03-16] MEDS: PANTOPRAZOLE 40 MG TABLET PO (09:49)
[2020-03-16] MEDS: AMLODIPINE BESYLATE 5 MG TABLET 10 MG PO (09:49)
[2020-03-16] MEDS: MEMANTINE 10 MG TABLET PO ×2 (09:49→20:23)
[2020-03-16] MEDS: ASPIRIN 81 MG ENTERIC TABLET PO (09:49)
[2020-03-16] MEDS: FERROUS SULFATE 324 MG TABLET PO ×2 (09:49→18:04)
[2020-03-16] MEDS: CALCIUM CARBONATE (OSCAL) 500 MG TABLET PO (09:49)
[2020-03-16] MEDS: carvediloL 12.5 MG TABLET PO ×2 (09:50→20:22)
[2020-03-16] MEDS: ESCITALOPRAM OXALATE 5 MG TABLET PO (09:51)
[2020-03-16] MEDS: SACCHAROMYCES BOULARDII 250 MG CAPSULE PO ×2 (09:51→18:06)
[2020-03-16] MEDS: TOLNAFTATE 1% POWDER 45 GM BTL 1 APPLIC TOPICAL ×2 (09:52→20:24)
[2020-03-16 11:40] LABS: Glucose Point of Care 93 (65-105)
[2020-03-16 12:26] LABS: Glucose Point of Care 97 (65-105)
--- NOTE | 2020-03-16 14:07 | WPDANESPN ---
Anes - Prog Note Post-Op Date/Time: 03/16/20 14:07 Cardiovascular status: normal Respiratory status: normal Airway patency: baseline Mental status: baseline Post-Op hydration status: normal Vital Signs: Last Vital Signs Temp 36.8 C 03/16/20 10:05 Pulse 72 03/16/20 13:50 Resp 18 03/16/20 13:50 BP 150/78 H 03/16/20 10:05 Pulse Ox 94 03/16/20 13:38 I/O: Intake & Output 03/15/20 03/16/20 03/16/20 23:59 07:59 15:59 Intake Total 200 90 120 Balance 200 90 120 Laboratory Tests 03/16/20 06:02 03/16/20 06:01 03/15/20 03/15/20 03/15/20 14:14 15:45 18:34 Hgb Hct Sodium Potassium Chloride Carbon Dioxide BUN Creatinine Estim Creat Clear Calc Estimated GFR Glucose POC Capillary Glucose 109 Calcium Troponin I 0.013 SARS-CoV-2 RNA (RT-PCR) Pending 03/15/20 03/16/20 03/16/20 21:23 03:32 06:01 Hgb Hct Sodium 138 Potassium 4.0 Chloride 114 H Carbon Dioxide 18 L BUN 11 Creatinine 1.00 Estim Creat Clear Calc 55 Estimated GFR > 60 Glucose 94 POC Capillary Glucose 82 89 Calcium 7.9 L Troponin I SARS-CoV-2 RNA (RT-PCR) 03/16/20 03/16/20 03/16/20 06:02 09:46 12:19 Hgb 10.1 L Hct 31.4 L Sodium Potassium Chloride Carbon Dioxide BUN Creatinine Estim Creat Clear Calc Estimated GFR Glucose POC Capillary Glucose 93 97 Calcium Troponin I SARS-CoV-2 RNA (RT-PCR) Microbiology 03/10/20 13:41 Blood Blood Culture - Final 03/10/20 13:23 Blood Blood Culture - Final Post-procedural complaints: none Patient Feedback: Patient satisfied with anesthetic care.
--- NOTE | 2020-03-16 15:04 | PM.IMPN ---
Progress Note: A&P Assessment and Plan (1) Parotiditis: Code(s): K11.20 - Sialoadenitis, unspecified Status: Acute Assessment and Plan: --------continue oral Bactrim at this time. 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 Mass palpated on exam. CT consistent with parotiditis. Could be due to chronic dehydration and poor dentition. He has been instructed to see a dentist for his oral needs. Patient was recently here 02/05 - 02/14 for this that was primarily on the left and he completed a 14-day course of abx at that time. Scheduled to see Dr Faulkner 02/19 -previous provider contacted the office and noted he did not come to this appointment and daughter states its because of the COVID pandemic. Continue supportive care with warm compresses, frequent suctioning, parotid massage--although hard to do because of patient's lack of cooperation. Will continue thickened liquid/pureed diet similar to last admission. Likely d/c tomorrow to [place]. (2) Suspected 2019 novel coronavirus infection: Code(s): Z20.828 - Contact with and (suspected) exposure to other viral communicable diseases Status: Ruled-out Assessment and Plan: -----He was tested for COVID-19 coming from [facility]. COVID-19 negative. [place] requiring another test before discharge. Yesterday's test malfunctioned and it will have to be run again which cannot be done until tomorrow. (3) Hypertension: Qualifiers: Hypertension type: essential hypertension Qualified Code(s): I10 - Essential (primary) hypertension Code(s): I10 - Essential (primary) hypertension Status: Acute Assessment and Plan: ------BPs intermittently elevated likely secondary to discomfort, stable this afternoon. Continue his home Coreg and norvas, monitor BP. 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 Not eating much, previously with hypoglycemia - sugars stable today. Hold DM meds.. Monitor with Accu-cheks and adjust as needed. (5) Dementia: Qualifiers: Dementia type: unspecified type Dementia behavioral disturbance: without behavioral disturbance Qualified Code(s): F03.90 - Unspecified dementia without behavioral disturbance Code(s): F03.90 - Unspecified dementia without behavioral disturbance Status: Acute Assessment and Plan: -----Continue with Namenda, depakote and lexapro. (6) COPD (chronic obstructive pulmonary disease): Qualifiers: COPD type: COPD with acute exacerbation Qualified Code(s): J44.1 - Chronic obstructive pulmonary disease with (acute) exacerbation Code(s): J44.9 - Chronic obstructive pulmonary disease, unspecified Status: Acute Assessment and Plan: ----Had COPD exacerbation during last admission. Respiratory status is stable at this point and he is tolerating room air. Continue home singular and add albuterol MDI. (7) Obstructive sleep apnea: Code(s): G47.33 - Obstructive sleep apnea (adult) (pediatric) Status: Chronic Assessment and Plan: ------continue cpap (8) Hypernatremia: Code(s): E87.0 - Hyperosmolality and hypernatremia Status: Acute Assessment and Plan: -----better today now 138. Fluids have been stop, encouraging oral hydration. (9) Dysphagia: Code(s): R13.10 - Dysphagia, unspecified Status: Acute Assessment and Plan: -----the patient has a history of dysphagia with his dementia. I had a long discussion with his daughter today about the findings of the MBS and his risk for aspiration, pneumonitis, and . We also talked about the disease progression. At this time she knows the risks but wants him to continue eating for quality of life. She wants t
[2020-03-16 18:04] LABS: Glucose Point of Care 91 (65-105)
[2020-03-16] MEDS: MONTELUKAST SODIUM 10 MG TABLET PO (20:24)
[2020-03-16] MEDS: TRAZODONE HCL 50 MG TABLET PO (20:25)
[2020-03-17] VITALS (15 sets, daily range): BP systolic 115–138; BP diastolic 52–74; PULSE 62–78; RESP 16–22; TEMP 36.5–37.6; O2SAT 95–100
[2020-03-17] MEDS: hydrOXYzine HCL 25 MG TABLET PO ×3 (05:47→22:45)
[2020-03-17 06:57] LABS: Blood Urea Nitrogen 11 mg/dL (9-20); Calcium 7.9 mg/dL (8.4-10.2); Carbon Dioxide 20 mmol/L (22-30); Chloride 114 mmol/L (98-107); Estimated CRCL calculation 50 ml/min; Estimated Glomerular Filt Rate > 60; Glucose 78 mg/dL (75-110); Potassium 4.4 mmol/L (3.4-5.0); Sodium 138 mmol/L (137-145)
--- NOTE | 2020-03-17 08:17 | PM.IMPN ---
Progress Note: A&P Assessment and Plan (1) Discharge planning issues: Code(s): Z02.9 - Encounter for administrative examinations, unspecified Status: Acute Assessment and Plan: -----patient's senior care requires a COVID-19 test before discharge. The last 2 days, the machine has malfunctioned with his test and we cannot get a result. This has prolonged his hospitalization. He has no clinical symptoms of COVID-19 and has tested negative x2 earlier in the stay (2) Parotiditis: Code(s): K11.20 - Sialoadenitis, unspecified Status: Acute Assessment and Plan: --------continue oral Bactrim at this time. 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 Mass palpated on exam. CT consistent with parotiditis. Could be due to chronic dehydration and poor dentition. He has been instructed to see a dentist for his oral needs. Patient was recently here 02/05 - 02/14 for this that was primarily on the left and he completed a 14-day course of abx at that time. Scheduled to see Dr Faulkner 02/19 -previous provider contacted the office and noted he did not come to this appointment and daughter states its because of the COVID pandemic. Continue supportive care with warm compresses, frequent suctioning, parotid massage--although hard to do because of patient's lack of cooperation. Will continue thickened liquid/pureed diet similar to last admission. Likely d/c tomorrow to [place]. (3) Suspected 2019 novel coronavirus infection: Code(s): Z20.828 - Contact with and (suspected) exposure to other viral communicable diseases Status: Ruled-out Assessment and Plan: -----He was tested for COVID-19 coming from [facility]. COVID-19 negative. [place] requiring another test before discharge. (4) Hypertension: Qualifiers: Hypertension type: essential hypertension Qualified Code(s): I10 - Essential (primary) hypertension Code(s): I10 - Essential (primary) hypertension Status: Acute Assessment and Plan: ------BPs intermittently elevated likely secondary to discomfort, stable this afternoon. Continue his home Coreg and norvasc, monitor BP. (5) Insulin dependent type 2 diabetes mellitus: Code(s): E11.9 - Type 2 diabetes mellitus without complications; Z79.4 - rodent exterminator (current) use of insulin Status: Chronic Assessment and Plan: -----A1c 6.2 one month ago. Not eating much, previously with hypoglycemia - sugars stable today. Hold DM meds.. Monitor with Accu-cheks and adjust as needed. (6) Dementia: Qualifiers: Dementia type: unspecified type Dementia behavioral disturbance: without behavioral disturbance Qualified Code(s): F03.90 - Unspecified dementia without behavioral disturbance Code(s): F03.90 - Unspecified dementia without behavioral disturbance Status: Acute Assessment and Plan: -----Continue with Namenda, depakote and lexapro. (7) COPD (chronic obstructive pulmonary disease): Qualifiers: COPD type: COPD with acute exacerbation Qualified Code(s): J44.1 - Chronic obstructive pulmonary disease with (acute) exacerbation Code(s): J44.9 - Chronic obstructive pulmonary disease, unspecified Status: Acute Assessment and Plan: ----Had COPD exacerbation during last admission. Respiratory status is stable at this point and he is tolerating room air. Continue home singular and add albuterol MDI. (8) Obstructive sleep apnea: Code(s): G47.33 - Obstructive sleep apnea (adult) (pediatric) Status: Chronic Assessment and Plan: ------continue cpap (9) Hypernatremia: Code(s): E87.0 - Hyperosmolality and hypernatremia Status: Acute Assessment and Plan: -----better today now 138. Fluids have been stop, encouraging oral hydration. (10) Dysphagia: Code(s): R13.10 - Dysphagia, unspecified Status: Acute Assessm
[2020-03-17] MEDS: MAGNESIUM HYDROXIDE SUSP 30 ML UDC PO (08:53)
[2020-03-17] MEDS: polyethylene glycoL 3350 17 GM POWD.PACK PO (08:53)
[2020-03-17] MEDS: DIVALPROEX SODIUM SPRINKLE 125 MG CAP.DR 250 MG PO ×3 (08:53→17:13)
[2020-03-17] MEDS: BISACODYL 10 MG SUPPOSITORY RECTAL (08:53)
[2020-03-17] MEDS: CALCIUM CARBONATE (OSCAL) 500 MG TABLET PO (08:54)
[2020-03-17] MEDS: SACCHAROMYCES BOULARDII 250 MG CAPSULE PO ×2 (08:54→17:20)
[2020-03-17] MEDS: DOCUSATE SODIUM 100 MG CAPSULE PO ×2 (08:54→17:23)
[2020-03-17] MEDS: carvediloL 12.5 MG TABLET PO ×2 (08:54→20:00)
[2020-03-17] MEDS: ESCITALOPRAM OXALATE 5 MG TABLET PO (08:54)
[2020-03-17] MEDS: ASPIRIN 81 MG ENTERIC TABLET PO (08:54)
[2020-03-17] MEDS: AMLODIPINE BESYLATE 5 MG TABLET 10 MG PO (08:54)
[2020-03-17] MEDS: TOPIRAMATE 25 MG TABLET 50 MG PO ×2 (08:55→20:01)
[2020-03-17] MEDS: PANTOPRAZOLE 40 MG TABLET PO (08:55)
[2020-03-17] MEDS: DULOXETINE HCL 30 MG CAPSULE.DR PO ×2 (08:55→17:13)
[2020-03-17] MEDS: MEMANTINE 10 MG TABLET PO ×2 (08:56→20:01)
[2020-03-17] MEDS: FERROUS SULFATE 324 MG TABLET PO ×2 (08:57→17:12)
[2020-03-17] MEDS: TOLNAFTATE 1% POWDER 45 GM BTL 1 APPLIC TOPICAL ×2 (09:00→20:03)
[2020-03-17 09:22] LABS: Glucose Point of Care 77 (65-105)
[2020-03-17] MEDS: ALBUTEROL SULFATE NEB 2.5 MG/0.5 ML INH INHALATION ×2 (09:33→14:41)
[2020-03-17 13:00] LABS: Glucose Point of Care 115 (65-105)
--- NOTE | 2020-03-17 14:16 | WPDINFPN2 ---
Progress Note: A&P Assessment and Plan (1) Parotiditis: Code(s): K11.20 - Sialoadenitis, unspecified Status: Acute Assessment and Plan: 1. Persistent parotiditis, BCs ng final 2. Confusion due to dementia and hyponatremia (now corrected), not due to sepsis 3. Mild leukocytosis, resolved REC TMP-SMX # 6 / 28 days. OK discharge. Repeat CoVid test in process; this was done only at the request of his ECF, makes no epidemiologic nor clinical sense, and is a waste of [facility] testing resources. Subjective Date/time seen: 03/17/20 14:16 Interval history: speaks a little, offers no complaints Exam Narrative: Exam Narrative: afebrile Const: General: no acute distress HENMT: Other: swelling diminished R parotid since last exam. no tenderness today. No erythema. No warmth Eyes: General: appearance normal, both eyes and all related structures Resp: Effort & Inspection: normal respiratory effort Auscultation: clear to auscultation bilaterally Cardio: Rate: regular rate Rhythm: regular rhythm Heart sounds: no gallops and no murmurs GI: Inspection: non-distended GI Palp: Yes Soft to palpation and No Tenderness to palpation present (GI) Objective Data Vital Signs Vital Signs: Vital Signs - 24 hr 03/16/20 18:00 03/16/20 19:51 03/16/20 20:00 Temperature 36.6 C Pulse Rate 75 70 71 Respiratory Rate 16 18 18 Blood Pressure 146/72 H Pulse Oximetry 94 03/16/20 20:22 03/16/20 22:00 03/17/20 00:30 Temperature 36.7 C Pulse Rate 78 72 68 Respiratory Rate 20 17 Blood Pressure 124/71 Pulse Oximetry 99 95 03/17/20 02:00 03/17/20 06:00 03/17/20 08:54 Temperature 36.7 C 36.7 C Pulse Rate 65 68 78 Respiratory Rate 18 18 Blood Pressure 132/59 L 115/52 L Pulse Oximetry 100 100 03/17/20 09:35 03/17/20 09:42 Temperature Pulse Rate 75 77 Respiratory Rate 18 18 Blood Pressure Pulse Oximetry Intake/Output Intake/Output: Intake & Output 03/14/20 03/15/20 03/16/20 03/17/20 23:59 23:59 23:59 23:59 Intake Total 2710 1540 830 220 Balance 2710 1540 830 220 Meds/Results Medications: Active Medications Generic Name Dose Route Start Last Admin Trade Name Freq PRN Reason Stop Dose Admin Albuterol 2 puff 03/11/20 11:00 03/13/20 12:28 Proventil Hfa INHALATION 2 puff QIDRT PRN Administration Shortness Of Breath Albuterol 2.5 mg 03/14/20 20:00 03/17/20 09:33 Albuterol Sulf Neb 2.5mg/0.5ml INHALATION 2.5 mg [id number] JOSIAH Administration Amlodipine Besylate 10 mg 03/11/20 09:00 03/17/20 08:54 Norvasc PO 10 mg DAILY JOSIAH Administration Aspirin 81 mg 03/11/20 09:00 03/17/20 08:54 Aspirin Ec PO 81 mg DAILY JOSIAH Administration Bisacodyl 10 mg 03/10/20 21:45 Dulcolax Tab PO DAILY PRN Constipation Butalbital/Aspirin/Caffeine 1 cap 03/10/20 23:41 Fioricet Capsule PO Q4H PRN Headache Calcium Carbonate 500 mg 03/11/20 09:00 03/17/20 08:54 Oscal 500 Mg PO 500 mg QAM JOSIAH Administration Carvedilol 12.5 mg 03/10/20 21:00 03/17/20 08:54 Coreg PO 12.5 mg Q12HR JOSIAH Administration Dextrose 12.5 gm 03/10/20 22:01 Dextrose 50% Syringe IV PUSH PRN PRN Hypoglycemia Protocol Divalproex Sodium 250 mg 03/11/20 09:00 03/17/20 13:46 Depakote Sprinkle PO 250 mg TID JOSIAH Administration Docusate Sodium 100 mg 03/11/20 09:00 03/17/20 08:54 Colace Capsule PO 100 mg BID JOSIAH Administration Duloxetine HCl 30 mg 03/11/20 09:00 03/17/20 08:55 Cymbalta PO 30 mg BID JOSIAH Administration Escitalopram Oxalate 5 mg 03/11/20 09:00 03/17/20 08:54 Lexapro PO 5 mg DAILY JOSIAH Administration Fentanyl Citrate 25 mcg 03/10/20 22:02 03/14/20 21:54 Sublimaze IV PUSH 25 mcg Q4H PRN Administration Pain Rated 7-10 Ferrous Sulfate 324 mg 03/11/20 08:00 03/17/20 08:57 Ferrous Sulfate PO 324 mg BIDWM JOSIAH Administration Glu
--- NOTE | 2020-03-17 14:53 | PM.DS ---
DS: Summary Hospital Course Reason for hospitalization: Parotiditis Hospital Course: Patient is an 84-year-old male with chronic dysphagia, dementia with decreasing appetite, and history parotiditis who presented emergency room for dehydration and jaw pain with right-sided neck mass. Vitals in the ER were stable. Initial white blood cell count 12.0 an initial sodium 152. CT showed parotid gland diffuse enlargement with surrounding inflammation. He has had history of this and is was to follow-up with an ENT but because of the COVID-19 pandemic, the daughter states they have not made the appointment yet. He was admitted to the hospitalist service and started on IV antibiotics as well as IV fluids. Infectious Disease was consulted since he has had a recurrence of his infection. They recommended 28 days of Bactrim. Patient also had a CT of his chest abdomen and pelvis that showed right lower paratracheal lymphadenopathy which could be reactive versus metastatic disease. I talked to the daughter about this finding as it could be due to infection. She wants the current infection treated and then may follow-up. She understands the patient's quality of life is poor and he may not be a candidate to undergo treatment if it is in fact a carcinoma. There was some possible wall thickening of his esophagus and since he had dysphagia, an EGD was done which did not show any abnormalities. A swallow study was also done again and showed that he was at risk for aspiration with all consistencies. I had a long talk with daughter and since the patient enjoys eating, although she knows the risks, she would like him to continue eating. She is not interested in tube feedings. With that being said, she is not interested in hospice at this time. Overall, the patient made improvement while being hospitalized and is going to continue antibiotic treatment outpatient. He is to follow-up with an ENT and follow-up with scan for his paraTrachea lymphadenopathy if desired. Patient was discharged in stable condition Status at Discharge Overall status at discharge: patient is progressing back to baseline Time Spent with Patient Time attestation: Total time spent providing and/or coordinating discharge services:38 min Time spent: Greater than 30 minutes Exam Narrative: Exam Narrative: General: Elderly patient resting comfortably in bed in no acute distress HEENT: Parotid mass noted on the right with pain to palpation. Poor dentition Neck: supple Neuro: Alert but did not answer orientation questions. CV:RRR with a 3/6 systolic murmur best heard in the right sternal border Resp: CTA today Abd: Soft, non distended. No pain to palpation to the abdomen. Positive bowel sounds Extremities: No swelling, erythema, or pain to palpation. DS: Data Data Completed and Pending Labs on day of discharge: Labs from last 24 hours 03/17/20 03/17/20 03/17/20 12:46 09:19 05:44 Sodium 138 Potassium 4.4 Chloride 114 H Carbon Dioxide 20 L BUN 11 Creatinine 1.10 Estim Creat Clear Calc 50 Estimated GFR > 60 Glucose 78 POC Capillary Glucose 115 H 77 Calcium 7.9 L 03/16/20 17:55 Sodium Potassium Chloride Carbon Dioxide BUN Creatinine Estim Creat Clear Calc Estimated GFR Glucose POC Capillary Glucose 91 Calcium Discharge Plan Discharge Attending physician on discharge: Kody Craig Consulting providers: Zurdo King ; Jose Juan Mahoney ; Donovan Hyman ; Elise Kennedy ; Dotty Reeder ; Luciana Giraldo ; Trung Sandra ; Subhash Villarreal ; Honorio Chowdhury ; Mono Liz ; Mynor Rey Discharging Clinician: Luciana Giraldo Patient Disposition: NH Correction/Asst Living Activity: as tolerated Diet: diabetic Discharge Instructions: -please note the medications have changed -follow up with facility provider in 1-2 weeks -follow-up with Dr. Faulkner (ENT), call his office
[2020-03-17 18:01] LABS: Glucose Point of Care 84 (65-105)
[2020-03-17] MEDS: TRAZODONE HCL 50 MG TABLET PO (20:02)
[2020-03-17] MEDS: MONTELUKAST SODIUM 10 MG TABLET PO (20:02)
[2020-03-18] VITALS (7 sets, daily range): BP systolic 128–166; BP diastolic 62–79; PULSE 63–78; RESP 16–22; TEMP 36.7–37.1; O2SAT 96–100
[2020-03-18] MEDS: hydrOXYzine HCL 25 MG TABLET PO (05:55)
[2020-03-18] MEDS: ALBUTEROL SULFATE NEB 2.5 MG/0.5 ML INH INHALATION (09:02)
[2020-03-18] MEDS: ASPIRIN 81 MG ENTERIC TABLET PO (09:53)
[2020-03-18] MEDS: DULOXETINE HCL 30 MG CAPSULE.DR PO (09:53)
[2020-03-18] MEDS: SACCHAROMYCES BOULARDII 250 MG CAPSULE PO (09:53)
[2020-03-18] MEDS: PANTOPRAZOLE 40 MG TABLET PO (09:53)
[2020-03-18] MEDS: DOCUSATE SODIUM 100 MG CAPSULE PO (09:53)
[2020-03-18] MEDS: TOPIRAMATE 25 MG TABLET 50 MG PO (09:53)
[2020-03-18] MEDS: carvediloL 12.5 MG TABLET PO (09:53)
[2020-03-18] MEDS: CALCIUM CARBONATE (OSCAL) 500 MG TABLET PO (09:53)
[2020-03-18] MEDS: AMLODIPINE BESYLATE 5 MG TABLET 10 MG PO (09:54)
[2020-03-18] MEDS: FERROUS SULFATE 324 MG TABLET PO (09:54)
[2020-03-18] MEDS: DIVALPROEX SODIUM SPRINKLE 125 MG CAP.DR 250 MG PO (09:54)
[2020-03-18] MEDS: ESCITALOPRAM OXALATE 5 MG TABLET PO (09:54)
[2020-03-18] MEDS: LIDOCAINE 5% PATCH 1 PATCH TRANSDERM (09:56)
[2020-03-18] MEDS: polyethylene glycoL 3350 17 GM POWD.PACK PO (09:58)
[2020-03-18] MEDS: MEMANTINE 10 MG TABLET PO (09:58)
[2020-03-18] MEDS: TOLNAFTATE 1% POWDER 45 GM BTL 1 APPLIC TOPICAL (10:06)
[2020-03-18 10:10] LABS: Glucose Point of Care 76 (65-105)
== END 2020-03-18 11:50 | DRG 155 ==
LOC: ANHED 12:06 → ANH2MED 13:49 → ANH3MEDSUR 15:19
PROVIDERS: Internal Medicine Gastroenterology; Nurse Practitioner; Physician Assistant; Admitting Provider Family Medicine; Emergency Provider Emergency Medicine; PCP Family Medicine; Visit Provider Internal Medicine
PROC: 0DJ08ZZ Inspection of Upper Intestinal Tract, Via Natural or Artificial Opening Endoscopic (ICD-10-PCS; CPT 43235; principal; 2020-03-15 09:30)
DX: K11.20 Sialoadenitis, unspecified (principal); I13.0 Hypertensive heart and chronic kidney disease with heart failure and stage 1 through stage 4 chronic kidney disease, or unspecified chronic kidney disease; E87.0 Hyperosmolality and hypernatremia; J44.1 Chronic obstructive pulmonary disease with (acute) exacerbation; E11.22 Type 2 diabetes mellitus with diabetic chronic kidney disease; N18.3 Chronic kidney disease, stage 3 (moderate); I50.9 Heart failure, unspecified; E11.40 Type 2 diabetes mellitus with diabetic neuropathy, unspecified; F03.90 Unspecified dementia, unspecified severity, without behavioral disturbance, psychotic disturbance, mood disturbance, and anxiety; E86.0 Dehydration; Z02.2 Encounter for examination for admission to residential institution; Z20.828 Contact with and (suspected) exposure to other viral communicable diseases; G47.33 Obstructive sleep apnea (adult) (pediatric); R13.10 Dysphagia, unspecified; R59.0 Localized enlarged lymph nodes; R07.9 Chest pain, unspecified; I25.10 Atherosclerotic heart disease of native coronary artery without angina pectoris; I25.2 Old myocardial infarction; N40.0 Benign prostatic hyperplasia without lower urinary tract symptoms; N47.1 Phimosis; R32 Unspecified urinary incontinence; E78.5 Hyperlipidemia, unspecified; D64.9 Anemia, unspecified; Z66 Do not resuscitate; M19.90 Unspecified osteoarthritis, unspecified site; Z96.653 Presence of artificial knee joint, bilateral; E66.9 Obesity, unspecified; Z68.36 Body mass index [BMI] 36.0-36.9, adult; Z79.4 Long term (current) use of insulin; Z79.82 Long term (current) use of aspirin; Z79.899 Other long term (current) drug therapy; Z86.14 Personal history of Methicillin resistant Staphylococcus aureus infection; Z87.891 Personal history of nicotine dependence; Z86.73 Personal history of transient ischemic attack (TIA), and cerebral infarction without residual deficits; Z86.718 Personal history of other venous thrombosis and embolism; Z95.5 Presence of coronary angioplasty implant and graft
CPT/HCPCS: 36415; 70491; 71045; 71250; 74176; 80048; 80053; 80076; 80202; 82728; 83605; 83615; 83735; 84100; 84443; 84484; 85014; 85018; 85025; 85027; 86140; 87040; 87635; 92526; 92611; 93005; 94640; 96361; 96365; 96366; 96375; 96376; 99285; A9270; C1769; G0378; J2270; J3010; J3370; J7030; J7070; J7120; Q9967; U0003